=== PATIENT | female | born 1950 | race Caucasian/White ===

== ENCOUNTER 2016-11-02 19:18 | Inpatient (IN) ==
[2016-11-02] MEDS ORDERED: Acetaminophen 325 MG TABLET PO PRN (23:19)
[2016-11-02] MEDS ORDERED: MOM Conc 10 ML UD.LIQ PO PRN (23:19)
[2016-11-02] MEDS ORDERED: Naloxone 0.4 MG/ML INJ IVP PRN (23:19)
[2016-11-03] MEDS ORDERED: *HR* Heparin 5,000 UNIT/ML VIAL SQ SCH
[2016-11-03] MEDS ORDERED: D5% in Water 1,000 ML IVC PRN (00:03)
[2016-11-03] MEDS ORDERED: Dextrose Gel 15 GM PO PRN ×2 (00:03)
[2016-11-03] MEDS ORDERED: *HR* Dextrose 50 % in Water (Syg) 50 ML SYRINGE IVP PRN (00:03)
[2016-11-03] MEDS ORDERED: Insulin LISPRO 300 UNITS/3 ML VIAL SQ ONE (00:08)
[2016-11-03] MEDS: Insulin LISPRO 300 UNITS/3 ML VIAL SQ SCH ×5 (00:40→22:07)
[2016-11-03 01:11] LABS: Potassium 2.7 mEq/L (3.5-4.5)
[2016-11-03] MEDS ORDERED: Potassium Chloride 20 MEQ, Lidocaine 1% 2 ML in D5% in Water 250 ML IVPB ONE (01:20)
[2016-11-03 01:40] LABS: Basophils % 0.2 %; Eosinophils # 0.1 K/mcL (0.0-0.6); Eosinophils % 1.3 %; Hemoglobin 6.6 g/dL (11.5-15.4); Immature Granulocytes % 1.1 % (0-4); Lymphocytes # 0.5 K/mcL (0.6-4.6); Lymphocytes % 8.1 %; Mean Corpuscular HGB Conc 31.4 g/dL (31.6-35.5); Mean Corpuscular Hemoglobin 26.7 pg (28.0-33.3); Monocytes # 0.4 K/mcL (0.0-1.3); Monocytes % 6.4 %; Neutrophils # 5.2 K/mcL (1.6-8.9); Platelet Count 213 K/mcL (140-400); Red Blood Count 2.47 M/mcL (3.82-4.97); Red Cell Distribution Width 14.2 % (11.5-14.5); Segmented Neutrophils % 82.9 %
[2016-11-03] MEDS ORDERED: Magnesium Sulfate 2 GM in D5% in Water 100 ML IVPB ONE (01:41)
[2016-11-03 01:48] LABS: Phosphorous 2.4 mg/dL (2.3-4.7)
--- NOTE | 2016-11-03 02:34 | Internal Med History&Physical ---
Date of Encounter: 11/03/16 Time of Encounter: 02:34 Assessment and Plan (1) NSTEMI (non-ST elevated myocardial infarction) Current visit: Yes Status: Acute No chest pain, but dyspnea and hypoxia due to pulmonary edema on room air on arrival could be angina equivalent in this diabetic woman with diabetic nephropathy. Troponin increased from 1.3 to 2.2 in 6 hours. Her EKG showed anterolateral TWI with mild anterior ST depression. I cannot rule out U waves due to hypokalemia, no prior EKG was available despite attempt. QTc is 579. - aspirin - statin - cont home coreg - start heparin gtt - check TTE - NPO inc ase she needs a cardiac cath during the day - cardiology consult, d/w Dr. Puckett (2) Pulmonary edema Current visit: Yes Status: Acute GGO seen on CT are likely pulmonary edema based one exam, in the setting of NSTEMI. It is also possible that pulmonary edema is causing demand ischemia and NSTEMI-type II. - She just received IV contrast, and still produces some urine. Will attempt to preserve residual renal function by avoiding IV Lasix at this time - WIll consult nephrology for HD for volume overload - Will give IV Lasix only if acute hypoxia or tachypnea overnight - cont O2 2 l/nc for now Qualifiers: Chronicity: chronic Qualified Code(s): J81.1 - Chronic pulmonary edema (3) ESRD (end stage renal disease) on dialysis Current visit: Yes Status: Acute -recently started, HD-LUE-AVF - nephrology consult (4) Heart failure Current visit: Yes Status: Acute check TTE, assess EF - volume overload to be managed by HD - would likely benefit from TAMAR inhibitor once stabilized Qualifiers: Heart failure type: unspecified heart failure type Heart failure chronicity : chronic Qualified Code(s): I50.9 - Heart failure, unspecified (5) Diabetes mellitus Current visit: Yes Status: Acute - SSI Qualifiers: Diabetes mellitus type: type 2 Diabetes mellitus complication status: with kidney complications Diabetes mellitus complication detail: with chronic kidney disease Diabetes mellitus mcfp insulin use: without mcfp use Chronic kidney disease stage: on chronic dialysis Qualified Code(s): E11.22 - Type 2 diabetes mellitus with diabetic chronic kidney disease; N18.6 - End stage renal disease; Z99.2 - Dependence on renal dialysis (6) Dyspnea Current visit: Yes Status: Acute Dyspnea is likely due to pulmonary edema. Despite productive cough and mild hemoptysis, I doubt pneumonia considering her exam, lack of fever and lack of leukocytosis. s/p 1 dose of Levaquin at OSH on 11/03 - Hold further antibiotics - If she develops fever or clinical signs of pneumonia, use a non-QTc prolonging antibiotic Qualifiers: Dyspnea type: shortness of breath Qualified Code(s): R06.02 - Shortness of breath; R06.00 - Dyspnea, unspecified; R06.01 - Orthopnea (7) Hypokalemia Current visit: Yes Status: Acute - severe, with possible U waves on EKG, and prolonged QTc. K 2.7 - give IV 20 mEq and PO 40 mEq, then recheck (8) Hypomagnesemia Current visit: Yes Status: Acute replace 2 g IV (9) Anemia in chronic kidney disease Current visit: Yes Status: Acute stable - monitor for bleeding while on heparin gtt (pt counseled, risks vs benefits explained) Qualifiers: Chronic kidney disease stage: on chronic dialysis Qualified Code(s): N18.6 - End stage renal disease; D63.1 - Anemia in chronic kidney disease; Z99.2 - Dependence on renal dialysis Internal Medicine - H&P: HPI Chief complaint: dyspnea Admitted From: Direct Admit Plans for Post Hospital Care: Home History of present illness: 65W with HF with unknown EF, [id number] for one month, HL and DM2 was recently treated for PNA and completed the antibiotic course around 10/16/16. Around , she started developing progressive dyspnea, cough with green sputum and occasional hemoptysis associated with dizziness, diaphoresis and fatigue. She presented to OSH due to dyspnea, was found to have hypoxia 76%, potassium 2.4 and troponin 1.3. A CTA was done which was negative for CAD but showed bilateral GGO of unknown etiology. She received KCl 20 mEq and IV Levaquin, and was transferred to [facility]. No chest pain, palpitations. Constipation. A 10-point ROS is otherwise negative. PMH: as above PSH: cholecystecotmy, partial hysterectomy SH: No tobacco use FH: DM, CAD. Brother-colon cancer. brother-prostate cancer. Past Med Surg Social Fam HX - Past Medical History Medical history: CHF, coronary artery disease, diabetes, hyperlipidemia, hypertension, renal disease, valvular heart disease, other Psychiatric history: no psych history - Past Surgical History Surgical History: cholecystectomy, hysterectomy - Social History Smoking Status: Never smoker Smokeless Tobacco Status: No Alcohol use: none Drug use: none Internal Medicine - H&P: Meds Aspirin [Lo-Dose Aspirin EC] 81 mg PO DAILY 11/02/16 [History] Carvedilol [Coreg] 12.5 mg BID 11/02/16 [History] Cholecalciferol (D-3) [Vitamin D] 2,000 unit PO DAILY 11/02/16 [History] Hydralazine HCl 100 mg PO TID 11/02/16 [History] Insulin Glargine [Lantus] HS 11/02/16 [History] Insulin LISPRO [HumaLOG] SQ ACHS 11/02/16 [History] Isosorbide MONOnitrate (24 HR) [Imdur] 30 mg PO DAILY 11/02/16 [History] amLODIPine [Norvasc] 11/02/16 [History] 3 Allergy/AdvReac Type Severity Reaction Status Date / Time Erythromycin Base Allergy Intermediate Itching Verified 06/02/15 14:32 faloxitine Allergy Hives Uncoded 08/27/16 08:47 All Systems PM: A 10-system review of systems was performed and is negative for pertinent findings except as documented above in the HPI. - Constitutional Vitals: Temp Pulse Resp BP Pulse Ox 98.3 F 83 16 158/71 95 11/03/16 00:15 11/03/16 00:15 11/02/16 22:30 11/03/16 00:15 11/03/16 00:15 General appearance: Present: A&O X 3, pleasant, no acute distress - Head Head exam: Present: atraumatic, normocephalic - Eye Eye exam: Present: PERRL, conjuntiva pink, sclera anicteric Pupils: Present: PERRL - Neck Neck exam general surgery: Present: supple, trachea midline. Absent: nuchal rigidity - Respiratory Respiratory exam: Present: rales (bibasilar). Absent: accessory muscle use, rhonchi, wheezes - Cardiovascular Cardiovascular exam: Present: JVD, RRR, +S1, +S2. Absent: diastolic murmur, gallop, rubs, systolic murmur - GI/Abdominal GI/Abdominal exam: Present: normal bowel sounds, soft, no peritoneal signs. Absent: distended, guarding, rebound, tenderness - Extremities Exam Extremities exam: Present: pedal edema (trace), warm, radial pulses palpable and symmetrical. Absent: calf tenderness, cyanotic - Neurological Exam Neurological exam: Present: CN II-XII intact, oriented X3, no focal deficits. Absent: facial droop, speech deficit - Psychiatric Psychiatric exam: Present: normal affect, normal mood - Skin Skin exam: Present: dry, intact Internal Med - H&P Results - Labs CBC & Chem 7: 11/03/16 00:47 11/03/16 00:47 Labs: Short CBC 11/03/16 Range/Units 00:47 WBC 6.2 (4.3-11.1) K/mcL Hgb 6.6 L (11.5-15.4) g/dL Hct 21.0 L (35.3-44.9) % Plt Count 213 (140-400) K/mcL Neutrophils # 5.2 (1.6-8.9) K/mcL BMP 11/03/16 00:47 Sodium 138 Potassium 2.7 L Chloride 98 Carbon Dioxide 31 H BUN 15 Creatinine 2.43 H Glucose 283 H Calcium 8.0 L Cardiac Enzymes 11/03/16 Range/Units 00:47 Troponin I 2.20 H* (0-0.03) ng/mL - EKG Data -: EKG Interpreted by Myself (Sinus 82 bpm, anterolateral TWI with mild anterior ST depression) EKG shows normal: sinus rhythm (cannot r/o U waves. QTc 579) - EKG Data Prior EKG available for review: no (attempted but couldn't get it from OSH)
[2016-11-03] MEDS ORDERED: *HR* Heparin 5,000 UNIT/ML VIAL IVP ONE (02:38)
[2016-11-03] MEDS ORDERED: Aspirin 325 MG TABLET PO ONE (02:38)
[2016-11-03] MEDS ORDERED: *HR* Heparin 5,000 UNIT/ML VIAL IVP PRN ×2 (02:38)
[2016-11-03 03:47] LABS: Hematocrit 20.7 % (35.3-44.9); Hemoglobin 6.5 g/dL (11.5-15.4); Mean Corpuscular HGB Conc 31.4 g/dL (31.6-35.5); Mean Corpuscular Hemoglobin 26.9 pg (28.0-33.3); Mean Corpuscular Volume 85.5 fL (83.0-100.0); Mean Platelet Volume 9.7 fL (9.4-12.4); Platelet Count 230 K/mcL (140-400); Red Blood Count 2.42 M/mcL (3.82-4.97); Red Cell Distribution Width 14.4 % (11.5-14.5)
[2016-11-03 03:53] LABS: INR 1.2; Prothrombin Time 12.8 Seconds (9.4-12.1)
[2016-11-03] MEDS: Heparin 25,000 UNIT/500 ML D5W 25,000 UNIT/500 ML MLS IVC SCH (04:57)
--- NOTE | 2016-11-03 05:40 | Event Note ---
Date of Encounter: 11/03/16 Time of Encounter: 05:34 Noted Hb 6.5, baseline 7-8. No obvious bleeding. - Considering NSTEMI, we may consider to transfuse her to a goal of 8.0. She has pulmonary edema, and PRBC transfusion may cause recurrence of hypoxia. - Type and cross-match - Check H&H at 10:00, if Hb is still low, transfuse 1 unit PRBC (during HD if possible for volume removal, would defer to nephrology)
[2016-11-03] MEDS: hydrALAZINE 25 MG TABLET PO SCH ×3 (08:50→22:02)
[2016-11-03] MEDS: Isosorbide MONOnitrate (24 HR) 30 MG TAB.ER.24H PO SCH (08:50)
[2016-11-03] MEDS ORDERED: Ondansetron 4 MG/2 ML VIAL IVP PRN (09:54)
--- NOTE | 2016-11-03 10:09 | Cardiology Consult Note ---
Date of Encounter: 11/03/16 Time of Encounter: 10:06 Assessment and Plan (1) NSTEMI (non-ST elevated myocardial infarction) Current Visit: Yes Status: [facility] 2.03--downtrending. Also in setting of ESRD on dialysis, severe electrolyte imbalances and acute on chronic anemia with HGB 6.5. Demand ischemia vs. NSTEMI. Pt denies chest pain. Reports dyspnea, has improved since admission. Given HGB of 6.5, would recommend medical management. Discussed with pt, states she would refuse a [facility] because she simply "does not want to know". R/B/A to options discussed. She wants medical management. Continue heparin gtt x 24 hours. Denies active bleeding, although reports hemoptysis prior to admission. Continue ASA, Statin, BB. Check echo to evaluate structure and function. (2) Cardiac murmur Current Visit: Yes Status: Acute Murmur noted on exam. Check echo to further evaluate. (3) Anemia in chronic kidney disease Current Visit: Yes Status: Acute Baseline HGB upper 7-10 range. Currently 6.5. Reports hemoptysis prior to admission. Management per primary team. Qualifiers: Chronic kidney disease stage: on chronic dialysis Qualified Code(s): N18.6 - End stage renal disease; D63.1 - Anemia in chronic kidney disease; Z99.2 - Dependence on renal dialysis Discussion w patient/family: The assessment and plan as outlined above was discussed with the patient and/or family members who expressed understanding and agreement. All questions were answered. Thank you for involving us in the care of your patient. Please call with any questions. I will discuss all the above with Dr. Adame and make changes as necessary. History of Present Illness Consult date: 11/03/16 Requesting physician: Maikel Joseph Consult reason: Elevated troponin Chief complaint: Dyspnea History of present illness: Ms. Giraldo is a 65 year old female with PMH of ESRD on HD for one month, HL and DM2 was recently treated for PNA and completed the antibiotic course around 10/16. She reports 4 days ago she started developing progressive dyspnea, cough with green sputum and occasional hemoptysis associated with dizziness, diaphoresis and fatigue. She presented to outside facility, reportedly per hospitalist H&P found to have hypoxia 76%, potassium 2.4 and troponin 1.3. She was transferred to [facility]. She denies chest pain. Troponin trended--2.20, 2.03. K is 2.7. HGB is 6.5. She denies CAD hx. Reports being told she has a murmur. Past Med Surg Social Fam HX - Past Medical History Medical history: CHF, diabetes, hyperlipidemia, hypertension, renal disease, valvular heart disease, other Psychiatric history: no psych history - Past Surgical History Surgical History: cholecystectomy, hysterectomy - Social History Smoking Status: Never smoker Smokeless Tobacco Status: No Alcohol use: none Drug use: none Medications and Allergies Aspirin [Lo-Dose Aspirin EC] 81 mg PO DAILY 11/02/16 [History] Carvedilol [Coreg] 12.5 mg BID 11/02/16 [History] Cholecalciferol (D-3) [Vitamin D] 2,000 unit PO DAILY 11/02/16 [History] Insulin Glargine [Lantus] 15 - 40 unit SQ QPM 11/02/16 [History] Insulin LISPRO [HumaLOG] 1 - 8 unit SQ TID PRN 11/02/16 [History] Isosorbide MONOnitrate (24 HR) [Imdur] 30 mg PO DAILY 11/02/16 [History] amLODIPine [Norvasc] 10 mg PO DAILY 11/02/16 [History] Clopidogrel [Plavix] 75 mg PO DAILY 11/03/16 [History] Hydralazine HCl [Hydralazine HCl] 50 mg PO TID 11/03/16 [History] Lidocaine/Prilocaine CREAM [Emla] 1 appl TP AD PRN 11/03/16 [History] 3 Allergy/AdvReac Type Severity Reaction Status Date / Time Erythromycin Base Allergy Intermediate Itching Verified 06/02/15 14:32 faloxitine Allergy Hives Uncoded 08/27/16 08:47 All Systems Review: A 10-system review of systems was performed and is negative for pertinent findings except as documented above in the HPI. - Constitutional Constitutional: fatigue - Cardiovascular Cardiovascular: as per HPI, diaphoresis, dyspnea at rest, dyspnea on exertion, lightheadedness - Respiratory Respiratory: cough, dyspnea, hemoptysis Physical Examination Vital Signs, Last 4 Hours Temp Pulse Resp BP Pulse Ox 11/03/16 08:20 99.1 F 76 18 142/67 95 11/03/16 07:33 99.1 F 76 18 142/67 95 Vital Signs Temp Pulse Resp BP Pulse Ox 11/03/16 08:20 99.1 F 76 18 142/67 95 11/03/16 07:33 99.1 F 76 18 142/67 95 11/03/16 04:13 98.5 F 86 16 180/87 99 11/03/16 03:40 86 11/03/16 00:15 98.3 F 83 158/71 95 11/02/16 22:30 98.2 F 89 16 164/76 92 Intake and Output 11/02/16 11/03/16 11/03/16 23:59 07:59 15:59 Intake Total 366 / 366 Output Total 100 / 100 Balance 266 / 266 Intake: IV Fluids 366 / 366 Magnesium Sulfate 2 GM In 104 / 104 Dextrose 5% 100 ML @ 100 mls/hr IVPB ONCE ONE Rx# :[id number] KCl 20 MEQ Xylocaine 2 ML 262 / 262 In Dextrose 5% 250 ML @ 131 mls/hr IVPB ONCE ONE Rx#:[id number] Output: Urine 100 / 100 Other: Weight 73.5 kg 73.5 kg Blood Glucose* 324 278 278 Patient Weight 11/03/16 23:59 Weight 73.5 kg General: Conversant, No Apparent Distress HEENT: Atraumatic, Normocephaly, Mucus Membranes Moist Neck: No JVD, Normal carotid pulses Cardiac: Reg Rate and Rhythm, Normal S1 and S2, Other (2/6 DEANNE) Lungs: Other (diminished) Neuro: Alert and responsive, No focal deficits noted Abdomen: Soft, Non-Tender Skin: No rashes noted on visualized skin Musculoskeletal: No Chest Wall Tenderness Extremities: No Clubbing, No Cyanosis, No Edema, Normal Pulses Results 11/03/16 03:39 11/03/16 00:47 Lab Results 11/03/16 11/03/16 11/03/16 00:47 00:47 00:47 WBC 6.2 Hgb 6.6 L Hct 21.0 L Plt Count 213 INR APTT Sodium Potassium Chloride Carbon Dioxide BUN Creatinine Glucose Calcium Magnesium 1.5 L Troponin I 2.20 H* 11/03/16 11/03/16 11/03/16 00:47 03:39 03:39 WBC 7.4 Hgb 6.5 L Hct 20.7 L Plt Count 230 INR APTT 35.3 Sodium 138 Potassium 2.7 L Chloride 98 Carbon Dioxide 31 H BUN 15 Creatinine 2.43 H Glucose 283 H Calcium 8.0 L Magnesium Troponin I 11/03/16 11/03/16 03:39 06:05 WBC Hgb Hct Plt Count INR 1.2 APTT Sodium Potassium Chloride Carbon Dioxide BUN Creatinine Glucose Calcium Magnesium Troponin I 2.03 H* Short CBC 11/03/16 11/03/16 Range/Units 03:39 00:47 WBC 7.4 6.2 (4.3-11.1) K/mcL Hgb 6.5 L 6.6 L (11.5-15.4) g/dL Hct 20.7 L 21.0 L (35.3-44.9) % Plt Count 230 213 (140-400) K/mcL Neutrophils # 5.2 (1.6-8.9) K/mcL BMP 11/03/16 Range/Units 00:47 Sodium 138 (136-145) mEq/L Potassium 2.7 L (3.5-4.5) mEq/L Chloride 98 (98-109) mEq/L Carbon Dioxide 31 H (19-29) mEq/L BUN 15 (7-20) mg/dL Creatinine 2.43 H (0.57-1.11) mg/dL Glucose 283 H (70-99) mg/dL Calcium 8.0 L (8.6-10.8) mg/dL Cardiac Enzymes 11/03/16 11/03/16 Range/Units 06:05 00:47 Troponin I 2.03 H* 2.20 H* (0-0.03) ng/mL Active Medications Acetaminophen (Tylenol) 650 mg PO Q6HR PRN PRN Reason: Mild Pain (1-3) Stop: 05/04/17 23:20 Aspirin (Aspirin Ec) 81 mg PO DAILY [facility] Stop: 05/06/17 09:01 Atorvastatin Calcium (Lipitor) 80 mg PO HS [facility] Stop: 05/05/17 02:46 Last Admin: 11/03/16 03:59 Dose: 80 mg Carvedilol (Coreg) 12.5 mg PO BID [facility] PRN Reason: Protocol Stop: 05/05/17 02:37 Last Admin: 11/03/16 08:50 Dose: 12.5 mg Dextrose/Water (Dextrose 50% (Syg)) 25 ml IVP AD PRN PRN Reason: Hypoglycemia Stop: 05/05/17 00:04 Docusate Sodium (Colace) 100 mg PO BID PRN PRN Reason: Constipation Stop: 05/04/17 23:20 Glucagon (Glucagen) 1 mg IM ONCE PRN PRN Reason: Hypoglycemia Stop: 05/05/17 00:04 Glucose (Gluctose) 15 gm PO ONCE PRN PRN Reason: Hypoglycemia Stop: 05/05/17 00:04 Glucose (Gluctose) 30 gm PO ONCE PRN PRN Reason: Hypoglycemia Stop: 05/05/17 00:04 Heparin Sodium (Porcine) (Heparin) 4,000 unit IVP Q6HR PRN PRN Reason: SEE COMMENTS Stop: 05/05/17 02:39 Heparin Sodium (Porcine) (Heparin) 2,000 unit IVP Q6H PRN PRN Reason: SEE COMMENTS Stop: 05/05/17 02:39 Hydralazine HCl (Hydralazine) 100 mg PO TID [facility] Stop: 05/05/17 09:01 Last Admin: 11/03/16 08:50 Dose: 100 mg Dextrose (Dextrose 5%) 1,000 mls @ 100 mls/hr IVC .Q10H PRN PRN Reason: HYPOGLYCEMIA Stop: 05/05/17 00:04 Heparin Sodium/Dextrose (Heparin 25,000 Unit/500 Ml D5w) 25,000 unit in 500 mls @ 17.64 mls/hr IVC .Q24H GO; 12 UNIT/KG/HR PRN Reason: Protocol Stop: 05/05/17 02:46 Last Admin: 11/03/16 04:57 Dose: 12 unit/kg/hr, 17.64 mls/hr Insulin Human Lispro (Humalog) 0 units SQ HS [facility] PRN Reason: Protocol Stop: 05/05/17 00:16 Last Admin: 11/03/16 00:40 Dose: Not Given Insulin Human Lispro (Humalog) 0 units SQ TIDAC [facility] PRN Reason: Protocol Stop: 05/05/17 07:31 Last Admin: 11/03/16 08:52 Dose: 10 units Isosorbide Mononitrate (Imdur) 30 mg PO DAILY [facility] Stop: 05/05/17 09:01 Last Admin: 11/03/16 08:50 Dose: 30 mg Magnesium Hydroxide (Milk Of Magnesia Conc) 10 ml PO DAILY PRN PRN Reason: Indigestion Stop: 05/04/17 23:20 Naloxone HCl (Narcan) 0.4 mg IVP Q2MIN PRN PRN Reason: Opioid Reversal Stop: 05/04/17 23:20 Ondansetron HCl (Zofran) 4 mg IVP Q4HR PRN; Protocol PRN Reason: Nausea And Vomiting Stop: 05/05/17 12:01 - EKG Interpretation EKG results cardiology: personally reviewed (SR, LVH), other (24 hr tele AVG HR 69, SR, no significant pauses or arrhythmias, ectopy noted.) Consult Discharge Plan - Plan Referrals: Huey Ortega MD [Non-Partnered Physician] - 11/15/16 8:40 am NONE,PCP [Primary Care Provider] -
[2016-11-03] MEDS ORDERED: Potassium Chloride 40 MEQ, Lidocaine 1% 2 ML in D5% in Water 500 ML IVPB ONE (10:23)
[2016-11-03] MEDS ORDERED: Furosemide 40 MG/4 ML VIAL IVP ONE (10:35)
--- NOTE | 2016-11-03 11:18 | Nephrology Consult Note ---
Date of Encounter: 11/03/16 Time of Encounter: 11:13 Assessment and Plan (1) Anemia in chronic kidney disease Current Visit: Yes Status: Acute Monitor for bleeding. Check iron stores, vit b12 and folate. Will start aranesp. Qualifiers: Chronic kidney disease stage: on chronic dialysis Qualified Code(s): N18.6 - End stage renal disease; D63.1 - Anemia in chronic kidney disease; Z99.2 - Dependence on renal dialysis (2) Diabetes mellitus Current Visit: Yes Status: Acute Per primary team. Qualifiers: Diabetes mellitus type: type 2 Diabetes mellitus complication status: with kidney complications Diabetes mellitus complication detail: with chronic kidney disease Diabetes mellitus facility manager insulin use: without alf use Chronic kidney disease stage: on chronic dialysis Qualified Code(s): E11.22 - Type 2 diabetes mellitus with diabetic chronic kidney disease; N18.6 - End stage renal disease; Z99.2 - Dependence on renal dialysis (3) ESRD (end stage renal disease) on dialysis Current Visit: Yes Status: Acute HD MWF. Plan for UF today for volume control. Renal diet. Adjust medications for renal function. HD access - patient may benefit from fistulogram given diminished thrill and bruit along the course of the fistula. (4) Hypokalemia Current Visit: Yes Status: Acute Replace electrolytes as needed. (5) NSTEMI (non-ST elevated myocardial infarction) Current Visit: Yes Status: Acute Per cardiology. Patient is refusing cardiac cath. May benefit from palliative evaluation for goals of care. No active chest pain. (6) Pulmonary edema Current Visit: Yes Status: Acute Likely CHF. Await echo. Plan for UF session today. Qualifiers: Chronicity: chronic Qualified Code(s): J81.1 - Chronic pulmonary edema (7) Hypertension Current Visit: Yes Status: Acute Continue home medication. Patient will likely need beta jannette and TAMAR-I/ARB. Qualifiers: Qualified Code(s): I10 - Essential (primary) hypertension History of Present Illness - Reason for Consult Consult date: 11/03/16 end stage renal disease - Chief Complaint ESRD dyspnea - History of Present Illness Ms. Giraldo is a 65-year-old woman with a history of diabetes mellitus type 2, hypertension, and ESRD who presents with progressive dyspnea and was found to have a NSTEMI. She receives dialysis on a MWF via a left forearm fistula under the direction of Dr. Sutherland of [facility]). She was found to have pulmonary edema and feels slightly better this am with less dyspnea and no chest pain. She did have nausea with vomiting this am that has improved by the time of my evaluation. She has had dyspnea on exertion that has worsened recently. She has had no problems on dialysis. Past Med Surg Social Fam HX - Past Medical History Medical history: CHF, diabetes, hyperlipidemia, hypertension, renal disease, valvular heart disease, other Psychiatric history: no psych history - Past Surgical History Surgical History: cholecystectomy, hysterectomy - Social History Smoking Status: Never smoker Smokeless Tobacco Status: No Alcohol use: none Drug use: none Medications and Allergies Aspirin [Lo-Dose Aspirin EC] 81 mg PO DAILY 11/02/16 [History] Carvedilol [Coreg] 12.5 mg BID 11/02/16 [History] Cholecalciferol (D-3) [Vitamin D] 2,000 unit PO DAILY 11/02/16 [History] Insulin Glargine [Lantus] 15 - 40 unit SQ QPM 11/02/16 [History] Insulin LISPRO [HumaLOG] 1 - 8 unit SQ TID PRN 11/02/16 [History] Isosorbide MONOnitrate (24 HR) [Imdur] 30 mg PO DAILY 11/02/16 [History] amLODIPine [Norvasc] 10 mg PO DAILY 11/02/16 [History] Clopidogrel [Plavix] 75 mg PO DAILY 11/03/16 [History] Hydralazine HCl [Hydralazine HCl] 50 mg PO TID 11/03/16 [History] Lidocaine/Prilocaine CREAM [Emla] 1 appl TP AD PRN 11/03/16 [History] 3 Allergy/AdvReac Type Severity Reaction Status Date / Time Erythromycin Base Allergy Intermediate Itching Verified 06/02/15 14:32 faloxitine Allergy Hives Uncoded 08/27/16 08:47 Review of Systems All Systems: reviewed and no additional remarkable complaints except as stated ( as documented on HPI.) Exam - Vital Signs Vital signs: Initial Vital Signs Temp Pulse Resp BP Pulse Ox 98.2 F 89 16 164/76 92 11/02/16 22:30 11/02/16 22:30 11/02/16 22:30 11/02/16 22:30 11/02/16 22:30 Vital Signs - Last 8 Hours Temp Pulse Resp BP Pulse Ox 11/03/16 10:57 98.6 F 71 17 102/54 11/03/16 08:20 99.1 F 76 18 142/67 95 11/03/16 07:33 99.1 F 76 18 142/67 95 11/03/16 04:13 98.5 F 86 16 180/87 99 11/03/16 03:40 86 Intake and Output 11/02/16 11/03/16 11/03/16 23:59 07:59 15:59 Intake Total 366 / 366 Output Total 100 / 100 Balance 266 / 266 Intake: IV Fluids 366 / 366 Magnesium Sulfate 2 GM In 104 / 104 Dextrose 5% 100 ML @ 100 mls/hr IVPB ONCE ONE Rx# :[id number] KCl 20 MEQ Xylocaine 2 ML 262 / 262 In Dextrose 5% 250 ML @ 131 mls/hr IVPB ONCE ONE Rx#:[id number] Output: Urine 100 / 100 Other: Weight 73.5 kg 73.5 kg Blood Glucose* 324 278 198 Patient Weight 11/03/16 23:59 Weight 73.5 kg - General Appearance General appearance: well-developed, well-nourished, frail EENT: ATNC Neck: supple Respiratory: rales (bibasilar rales) Cardiology: edema, regular rate, regular rhythm - Dialysis Access Dialysis Vascular Access: Arteriovenous Fistula thrill: Yes bruit: Yes Gastrointestinal: no tenderness Integumentary: warm and dry Neurologic: alert and oriented x3 Musculoskeletal: no cyanosis Psychiatric: mood/affect appropriate Results - Lab Results 11/03/16 03:39 11/03/16 00:47 Most recent lab results Calcium 8.0 mg/dL (8.6-10.8) L 11/03/16 00:47 Phosphorus 2.4 mg/dL (2.3-4.7) 11/03/16 00:47 Magnesium 1.5 mg/dL (1.6-2.6) L 11/03/16 00:47 Consult Discharge Plan - Plan Referrals: Huey Ortega MD [Non-Partnered Physician] - 11/15/16 8:40 am NONE,PCP [Primary Care Provider] -
[2016-11-03 12:33] LABS: Hematocrit 20.5 % (35.3-44.9); Hemoglobin 6.4 g/dL (11.5-15.4); Mean Corpuscular HGB Conc 31.2 g/dL (31.6-35.5); Mean Corpuscular Volume 86.5 fL (83.0-100.0); Mean Platelet Volume 9.8 fL (9.4-12.4); Platelet Count 231 K/mcL (140-400); Red Blood Count 2.37 M/mcL (3.82-4.97); Red Cell Distribution Width 14.7 % (11.5-14.5)
[2016-11-03 12:46] LABS: Calcium 8.7 mg/dL (8.6-10.8); Magnesium 2.2 mg/dL (1.6-2.6); Potassium 3.7 mEq/L (3.5-4.5)
[2016-11-03] MEDS ORDERED: 0.9 % Sodium Chloride 250 ML IVC PRN (13:35)
--- NOTE | 2016-11-03 14:35 | Event Note ---
Date of Encounter: 11/03/16 Time of Encounter: 14:34 - Cardiology Event Note Echo resulted. Impressions: LVEF 60-65%. Normal left ventricular size and systolic function. There is evidence of moderate diastolic dysfunction of the left ventricle. Normal right ventricular size and function. Mild mitral regurgitation. No pulmonary hypertension. EF is preserved, no severe valve dysfunction. Cardiology will sign off. Reconsult PRN. Recommend stopping Heparin gtt after 24 hours in setting of acute on chronic anemai. Continue ASA, Statin, BB.
[2016-11-03 15:06] LABS: Hepatitis B Surface Antigen Nonreactive (Nonreactive)
[2016-11-03] MEDS ORDERED: 0.9 % Sodium Chloride 2,000 ML ONE (16:16)
--- NOTE | 2016-11-03 16:49 | Electrocardiograph Report ---
[place] [id number] Test Date: 2016-11-02 Pat Name: Crystal Giraldo Department: 110 Room: [facility] Gender: F Quail Farmer: [id number] : 1950 Requested By: Maikel Joseph Order Number: [id number] Reading MD: Ayesha Mendenhall Measurements Intervals [place] Rate: 82 P: 53 DC: 154 QRS: 22 QRSD: 88 T: -70 QT: 541 QTc: 579 Interpretive Statements SINUS RHYTHM LEFT VENTRICULAR HYPERTROPHY AND ST-T CHANGE Electronically Signed On 11-03-2016 16:47:34 EDT by Ayesha Mendehnall
[2016-11-03 21:23] LABS: Hematocrit 28.1 % (35.3-44.9)
[2016-11-03 21:41] LABS: Hemoglobin 9.1 g/dL (11.5-15.4)
[2016-11-03] MEDS: Insulin DETEMIR 100 UNIT/ML X5UNITS SQ SCH (22:06)
[2016-11-04 04:29] LABS: Hematocrit 27.3 % (35.3-44.9); Hemoglobin 8.6 g/dL (11.5-15.4); Mean Corpuscular HGB Conc 31.5 g/dL (31.6-35.5); Mean Corpuscular Hemoglobin 27.8 pg (28.0-33.3); Mean Corpuscular Volume 88.3 fL (83.0-100.0); Mean Platelet Volume 10.1 fL (9.4-12.4); Platelet Count 203 K/mcL (140-400); Red Blood Count 3.09 M/mcL (3.82-4.97); Red Cell Distribution Width 15.3 % (11.5-14.5)
[2016-11-04 04:43] LABS: Calcium 8.6 mg/dL (8.6-10.8); Potassium 3.9 mEq/L (3.5-4.5)
[2016-11-04 06:10] LABS: Folate 6.3 ng/mL (7.0-31.4)
[2016-11-04] MEDS ORDERED: 0.9 % Sodium Chloride 250 ML IVC PRN (07:23)
[2016-11-04] MEDS: Heparin 25,000 UNIT/500 ML D5W 25,000 UNIT/500 ML MLS IVC SCH (07:30)
[2016-11-04] MEDS: Isosorbide MONOnitrate (24 HR) 30 MG TAB.ER.24H PO SCH (07:49)
[2016-11-04] MEDS: Aspirin Enteric Coated 81 MG Tablet PO SCH (07:49)
[2016-11-04] MEDS: hydrALAZINE 25 MG TABLET PO SCH ×3 (07:50→20:26)
[2016-11-04] MEDS: Insulin LISPRO 300 UNITS/3 ML VIAL SQ SCH ×4 (07:51→20:27)
[2016-11-04] MEDS ORDERED: 0.9 % Sodium Chloride 1,000 ML ONE (08:34)
[2016-11-04 09:45] LABS: Hepatitis B Surface Antibody 0.85 mIU/mL
--- NOTE | 2016-11-04 10:29 | Nephrology Progress Note ---
Date of Encounter: 11/04/16 Time of Encounter: 10:27 - Assessment and Plan (1) ESRD (end stage renal disease) on dialysis Current Visit: Yes Status: Chronic HD today for clearance, but no UF as she has a hx of high output ileostomy so she has no edema on exam. Next HD is planned for Monday. (2) Anemia in chronic kidney disease Current Visit: Yes Status: Chronic Goal Hgb is 10-11 in the setting of CKD. Qualifiers: Chronic kidney disease stage: on chronic dialysis Qualified Code(s): N18.6 - End stage renal disease; D63.1 - Anemia in chronic kidney disease; Z99.2 - Dependence on renal dialysis (3) Hematuria Current Visit: Yes Status: Acute Via the Urostomy: As per primary and Urology; appreciate their assistance. Qualifiers: Qualified Code(s): R31.29 - Other microscopic hematuria; R31.2 - Other microscopic hematuria (4) Dyspnea Current Visit: Yes Status: Acute With productive cough. Appreciate the hospitalists. Qualifiers: Dyspnea type: shortness of breath Qualified Code(s): R06.02 - Shortness of breath; R06.00 - Dyspnea, unspecified; R06.01 - Orthopnea Subjective Principal diagnosis: ESRD, PNA Interval history: Pt was s/e while on HD. She did not affirm N/V/D but did report gross hematuria via the urostomy and ongoing productive cough with rib pains from frequent coughing. Objective - Vital Signs Vital signs: Vital Signs Temp Pulse Resp BP Pulse Ox 11/04/16 08:15 98.3 F 73 18 136/71 95 11/04/16 07:25 98.3 F 73 18 136/71 95 11/04/16 03:44 98.4 F 70 18 120/60 94 11/03/16 23:40 98.8 F 74 18 115/56 95 11/03/16 20:34 99.7 F H 78 18 128/64 96 11/03/16 19:00 98.2 F 18 138/66 11/03/16 18:30 144/73 11/03/16 18:15 146/76 11/03/16 18:00 157/73 11/03/16 17:45 152/70 11/03/16 17:35 99 F 73 16 151/72 11/03/16 17:30 147/76 08/31/17 17:20 99 F 75 16 153/77 11/03/16 17:15 158/75 11/03/16 17:00 100 F H 74 16 141/69 11/03/16 16:45 100 F H 73 16 138/69 11/03/16 16:30 134/69 11/03/16 16:15 131/59 11/03/16 16:10 99.9 F H 79 16 135/71 11/03/16 16:00 132/67 11/03/16 15:55 100 F H 73 16 138/56 95 11/03/16 15:45 113/53 11/03/16 15:30 99.8 F H 18 118/59 11/03/16 11:20 98.6 F 71 17 102/54 95 11/03/16 10:57 98.6 F 71 17 102/54 Intake and Output 11/03/16 11/04/16 11/04/16 23:59 07:59 15:59 Intake Total 1261 / 1261 311 / 311 527 / 527 Output Total 3330 / 3330 0 / 0 300 / 300 Balance -2068 / -2068 311 / 311 227 / 227 Intake: IV Fluids 151 / 151 311 / 311 47 / 47 Heparin 25,000 UNIT/500 151 / 151 311 / 311 47 / 47 ML D5W 25,000 unit In 500 ml @ 12 UNIT/KG/HR 17.64 mls/hr IVC .Q24H [facility] Rx# :[id number] Oral 60 / 60 0 / 0 480 / 480 Blood Product 1050 / 1050 Rbcs Leuko Poor As-1 350 / 350 Unit [id number] Rbcs Leuko Poor As-1 700 / 700 Unit [id number] Output: Urine 0 / 0 0 / 0 300 / 300 Total Dialysis (HD) 3330 / 3330 Output Other: Meal Breakfast Percent of Meal Consumed 100% Weight 73.8 kg Blood Glucose* 256 173 173 Hemodialysis Net Fluid 2000 Removed (mL) Patient Weight 11/04/16 23:59 Weight 73.8 kg - General Appearance General appearance: Present: well-developed, appears started age, chronically ill, frail EENT: Present: ATNC, PERRL Neck: Present: supple Respiratory: Present: rales, course breath sounds, rhonchi Cardiology: Present: no edema, normal S1, normal S2 Dialysis Vascular Access: Arteriovenous Fistula (Left Upper Extremity) thrill: Yes bruit: Yes Gastrointestinal: Present: normoactive bowel sounds, no guarding Additional Comments: Ileostomy and Urostomy with dark burgundy colored appearing urine in the urostomy bag. Integumentary: Present: warm and dry Neurologic: Present: no focal deficit Musculoskeletal: Present: no deformities, no erythema, no cyanosis Psychiatric: Present: mood/affect appropriate, cooperative - Lab 11/04/16 04:02 11/04/16 04:02 Most recent lab results Calcium 8.6 mg/dL (8.6-10.8) 11/04/16 04:02 Phosphorus 2.4 mg/dL (2.3-4.7) 11/03/16 00:47 Magnesium 2.2 mg/dL (1.6-2.6) 11/03/16 12:20 Consult Discharge Plan - Plan Referrals: Huey Ortega MD [Non-Partnered Physician] - 11/15/16 8:40 am NONE,PCP [Primary Care Provider] -
--- NOTE | 2016-11-04 10:36 | Nephrology Progress Note ---
Date of Encounter: 11/04/16 Time of Encounter: 10:33 - Assessment and Plan (1) ESRD (end stage renal disease) on dialysis Current Visit: Yes Status: Chronic HD today for both clearance and volume control The initial labs with hypokalemia most likely are not accurate, since blood drawn immediately after dialysis will not have equilibrated all body compartments. I do not suspect chronic severe hypokalemia. Next HD is planned for Monday. Appreciate the hospitalists (2) Anemia in chronic kidney disease Current Visit: Yes Status: Chronic Goal Hgb is 10-11 in the setting of CKD. Qualifiers: Chronic kidney disease stage: on chronic dialysis Qualified Code(s): N18.6 - End stage renal disease; D63.1 - Anemia in chronic kidney disease; Z99.2 - Dependence on renal dialysis (3) Dyspnea Current Visit: Yes Status: Acute Appreciate the hospitalists. Qualifiers: Dyspnea type: shortness of breath Qualified Code(s): R06.02 - Shortness of breath; R06.00 - Dyspnea, unspecified; R06.01 - Orthopnea Subjective Principal diagnosis: ESRD, PNA Interval history: Pt was s/e in 2N. She reported feeling fatigued. We discussed her shortness of breath and cough. She is due for dialysis today. Objective - Vital Signs Vital signs: Vital Signs Temp Pulse Resp BP Pulse Ox 11/04/16 08:15 98.3 F 73 18 136/71 95 11/04/16 07:25 98.3 F 73 18 136/71 95 11/04/16 03:44 98.4 F 70 18 120/60 94 11/03/16 23:40 98.8 F 74 18 115/56 95 11/03/16 20:34 99.7 F H 78 18 128/64 96 11/03/16 19:00 98.2 F 18 138/66 11/03/16 18:30 144/73 11/03/16 18:15 146/76 11/03/16 18:00 157/73 11/03/16 17:45 152/70 11/03/16 17:35 99 F 73 16 151/72 11/03/16 17:30 147/76 11/03/16 17:20 99 F 75 16 153/77 11/03/16 17:15 158/75 11/03/16 17:00 100 F H 74 16 141/69 11/03/16 16:45 100 F H 73 16 138/69 11/03/16 16:30 134/69 11/03/16 16:15 131/59 11/03/16 16:10 99.9 F H 79 16 135/71 11/03/16 16:00 132/67 11/03/16 15:55 100 F H 73 16 138/56 95 11/03/16 15:45 113/53 11/03/16 15:30 99.8 F H 18 118/59 11/03/16 11:20 98.6 F 71 17 102/54 95 11/03/16 10:57 98.6 F 71 17 102/54 Intake and Output 11/03/16 11/04/16 11/04/16 23:59 07:59 15:59 Intake Total 1261 / 1261 311 / 311 527 / 527 Output Total 3330 / 3330 0 / 0 300 / 300 Balance -2069 / -2069 311 / 311 227 / 227 Intake: IV Fluids 151 / 151 311 / 311 47 / 47 Heparin 25,000 UNIT/500 151 / 151 311 / 311 47 / 47 ML D5W 25,000 unit In 500 ml @ 12 UNIT/KG/HR 17.64 mls/hr IVC .Q24H [facility] Rx# :[id number] Oral 60 / 60 0 / 0 480 / 480 Blood Product 1050 / 1050 Rbcs Leuko Poor As-1 350 / 350 Unit [id number] Rbcs Leuko Poor As-1 700 / 700 Unit [id number] Output: Urine 0 / 0 0 / 0 300 / 300 Total Dialysis (HD) 3330 / 3330 Output Other: Meal Breakfast Percent of Meal Consumed 100% Weight 73.8 kg Blood Glucose* 256 173 173 Hemodialysis Net Fluid 2000 Removed (mL) Patient Weight 11/04/16 23:59 Weight 73.8 kg - General Appearance General appearance: Present: well-developed, well-nourished, appears started age , frail EENT: Present: ATNC, PERRL, mucous membranes moist Neck: Present: supple Respiratory: Present: course breath sounds Cardiology: Present: no edema (only trace ankle nonpitting/subcutanous chronic swelling), regular rate, regular rhythm, normal S1, normal S2 Dialysis Vascular Access: Arteriovenous Fistula thrill: Yes bruit: Yes Gastrointestinal: Present: normoactive bowel sounds Integumentary: Present: no rash, warm and dry Neurologic: Present: no focal deficit, no asterixis, alert and oriented x3 Musculoskeletal: Present: no deformities, no erythema, no cyanosis Psychiatric: Present: mood/affect appropriate, cooperative - Lab 11/04/16 04:02 11/04/16 04:02 Most recent lab results Calcium 8.6 mg/dL (8.6-10.8) 11/04/16 04:02 Phosphorus 2.4 mg/dL (2.3-4.7) 11/03/16 00:47 Magnesium 2.2 mg/dL (1.6-2.6) 11/03/16 12:20 Consult Discharge Plan - Plan Referrals: Huey Ortega MD [Non-Partnered Physician] - 11/15/16 8:40 am NONE,PCP [Primary Care Provider] -
--- NOTE | 2016-11-04 14:50 | Internal Med Progress Note ---
Date of Encounter: 11/04/16 Time of Encounter: 14:50 - Assessment and plan (1) Diastolic CHF Current Visit: Yes Status: Acute Assessment and plan: Acute pulmonary edema secondary to volume overload/acute on chronic diastolic CHF exacerbation Strict I's and O's and daily weight, continue dialysis May benefit from a fluid restriction Qualifiers: Congestive heart failure chronicity: acute on chronic Qualified Code(s): I50.33 - Acute on chronic diastolic (congestive) heart failure (2) NSTEMI (non-ST elevated myocardial infarction) Current Visit: Yes Status: Acute Assessment and plan: Continue aspirin, Lipitor, isosorbide, Coreg Nitroglycerin as needed Cardiology was consulted, the patient is refusing to have a cardiac the cardiac catheterization Heparin drip was stopped after 24 hours (3) Pulmonary edema Current Visit: Yes Status: Acute Qualifiers: Chronicity: acute Qualified Code(s): J81.0 - Acute pulmonary edema (4) ESRD (end stage renal disease) on dialysis Current Visit: Yes Status: Chronic Assessment and plan: Continue hemodialysis (5) Diabetes mellitus Current Visit: Yes Status: Acute Assessment and plan: Continue insulin sliding scale Qualifiers: Diabetes mellitus type: type 2 Diabetes mellitus complication status: with kidney complications Diabetes mellitus complication detail: with chronic kidney disease Diabetes mellitus care home insulin use: without adjunct faculty for medical terminology use Chronic kidney disease stage: on chronic dialysis Qualified Code(s): E11.22 - Type 2 diabetes mellitus with diabetic chronic kidney disease; N18.6 - End stage renal disease; Z99.2 - Dependence on renal dialysis (6) Anemia in chronic kidney disease Current Visit: Yes Status: Chronic Assessment and plan: Anemia of chronic disease No evidence of bleeding Patient was transfused 2 units during dialysis on 11/03/2016. Monitor CBC and follow-up as an outpatient May discharge in the morning if stable Qualifiers: Chronic kidney disease stage: on chronic dialysis Qualified Code(s): N18.6 - End stage renal disease; D63.1 - Anemia in chronic kidney disease; Z99.2 - Dependence on renal dialysis - Subjective Interval history: She is less short of breath, denies any chest pain, no abdominal pain, no diarrhea, no fevers. Feeling weak - Constitutional Vitals: Temp Pulse Resp BP Pulse Ox 99.2 F 82 18 132/63 92 11/04/16 11:47 11/04/16 12:01 11/04/16 11:47 11/04/16 11:47 11/04/16 11:47 General appearance: Present: A&O X 3, pleasant, no acute distress - Head Head exam: Present: atraumatic, normocephalic - Eye Eye exam: Present: PERRL, conjuntiva pink, sclera anicteric Pupils: Present: PERRL - Neck Neck exam general surgery: Present: supple, trachea midline. Absent: lymphadenopathy - Respiratory Respiratory exam: Present: CTAB, rales (Bibasilar fine crackles). Absent: accessory muscle use, rhonchi, wheezes - Cardiovascular Cardiovascular exam: Present: RRR, +S1, +S2. Absent: diastolic murmur, gallop, rubs, systolic murmur - GI/Abdominal GI/Abdominal exam: Present: distended, normal bowel sounds, soft, no peritoneal signs. Absent: tenderness - Extremities Exam Extremities exam: Present: warm, radial pulses palpable and symmetrical. Absent : calf tenderness, cyanotic, pedal edema - Neurological Exam Neurological exam: Present: CN II-XII intact, oriented X3, no focal deficits. Absent: pronater drift, facial droop, speech deficit - Skin Skin exam: Present: dry, intact Additional comments: Left upper extremity AV fistula with good thrill Internal Medicine: Result - Labs CBC & Chem 7: 11/04/16 04:02 11/04/16 04:02 Labs: Short CBC 11/03/16 11/04/16 Range/Units 21:12 04:02 WBC 9.5 (4.3-11.1) K/mcL Hgb 9.1 L D 8.6 L (11.5-15.4) g/dL Hct 28.1 L 27.3 L (35.3-44.9) % Plt Count 203 (140-400) K/mcL BMP 11/04/16 04:02 Sodium 135 L Potassium 3.9 Chloride 98 Carbon Dioxide 26 BUN 23 H Creatinine 4.19 H Glucose 121 H Calcium 8.6 - ABG Interpretation ABG results: PT/INR, D-dimer PT 12.8 Seconds (9.4-12.1) H 11/03/16 03:39 Consult Discharge Plan - Plan Referrals: Huey Ortega MD [Non-Partnered Physician] - 11/15/16 8:40 am NONE,PCP [Primary Care Provider] -
[2016-11-04] MEDS: Insulin DETEMIR 100 UNIT/ML X5UNITS SQ SCH (20:27)
[2016-11-05 00:36] LABS: Basophils % 0.1 %; Eosinophils # 0.1 K/mcL (0.0-0.6); Eosinophils % 0.7 %; Hematocrit 28.2 % (35.3-44.9); Hemoglobin 9.1 g/dL (11.5-15.4); Immature Granulocytes % 0.7 % (0-4); Lymphocytes # 0.5 K/mcL (0.6-4.6); Lymphocytes % 5.7 %; Mean Corpuscular HGB Conc 32.3 g/dL (31.6-35.5); Mean Corpuscular Hemoglobin 28.3 pg (28.0-33.3); Mean Corpuscular Volume 87.9 fL (83.0-100.0); Mean Platelet Volume 9.8 fL (9.4-12.4); Monocytes # 0.5 K/mcL (0.0-1.3); Monocytes % 5.6 %; Neutrophils # 7.6 K/mcL (1.6-8.9); Platelet Count 187 K/mcL (140-400); Red Blood Count 3.21 M/mcL (3.82-4.97); Red Cell Distribution Width 15.4 % (11.5-14.5); Segmented Neutrophils % 87.2 %
[2016-11-05 00:48] LABS: Potassium 4.1 mEq/L (3.5-4.5)
--- NOTE | 2016-11-05 01:43 | Event Note ---
Date of Encounter: 11/05/16 Time of Encounter: 01:00 Pt developped fever 101.3. Still SOB although had HD today. Can not off O2 (pt doesn't use O2 at home), has mild nonproductive cough. See Pt bed side, denies pain, mild SOB improved from admission but still not baseline. Denies abd pain. lungs are clear. Heart S1S2 RRR. CBC, Blood cx, lactate, CXR stat ordered. CXR shows increased opicities. Will start to treat pt as HCAP with Vanco and zosyn considering SOB, cough, and fever , with positive CXR.
[2016-11-05] MEDS ORDERED: Vancomycin 1,000 MG in D5% in Water 250 ML IVPB SCH (02:00)
[2016-11-05] MEDS ORDERED: Vancomycin 1,500 MG in D5% in Water 250 ML IVPB ONE (03:00)
[2016-11-05 04:44] LABS: Basophils % 0.2 %; Eosinophils # 0.1 K/mcL (0.0-0.6); Eosinophils % 0.7 %; Hematocrit 26.8 % (35.3-44.9); Hemoglobin 8.6 g/dL (11.5-15.4); Immature Granulocytes % 1.1 % (0-4); Lymphocytes # 0.6 K/mcL (0.6-4.6); Lymphocytes % 7.2 %; Mean Corpuscular HGB Conc 32.1 g/dL (31.6-35.5); Mean Corpuscular Hemoglobin 28.5 pg (28.0-33.3); Mean Corpuscular Volume 88.7 fL (83.0-100.0); Mean Platelet Volume 10.3 fL (9.4-12.4); Monocytes # 0.5 K/mcL (0.0-1.3); Monocytes % 6.3 %; Neutrophils # 6.8 K/mcL (1.6-8.9); Platelet Count 187 K/mcL (140-400); Red Blood Count 3.02 M/mcL (3.82-4.97); Red Cell Distribution Width 15.6 % (11.5-14.5); Segmented Neutrophils % 84.5 %
[2016-11-05 04:57] LABS: Calcium 8.6 mg/dL (8.6-10.8); Potassium 4.2 mEq/L (3.5-4.5)
[2016-11-05] MEDS: Aspirin Enteric Coated 81 MG Tablet PO SCH (08:42)
[2016-11-05] MEDS: Isosorbide MONOnitrate (24 HR) 30 MG TAB.ER.24H PO SCH (08:42)
[2016-11-05] MEDS: hydrALAZINE 25 MG TABLET PO SCH ×3 (08:42→21:08)
[2016-11-05] MEDS: Insulin LISPRO 300 UNITS/3 ML VIAL SQ SCH ×4 (08:43→21:10)
[2016-11-05] MEDS: Piperacillin/Tazobactam 3.375 GM in D5% in Water (Mini-Bag+) 100 ML IVPB SCH ×2 (08:43→10:11)
[2016-11-05] MEDS ORDERED: Aminoglycoside Consult 1 EACH MC ONE (09:32)
--- NOTE | 2016-11-05 10:27 | Nephrology Progress Note ---
Date of Encounter: 11/05/16 Time of Encounter: 10:27 - Assessment and Plan (1) ESRD (end stage renal disease) on dialysis Current Visit: Yes Status: Chronic Next HD planned for Monday. Cont to follow a renal protective / conservative strategy. Appreciate the hospitalists (2) Anemia in chronic kidney disease Current Visit: Yes Status: Chronic Goal Hgb is 10-11 in the setting of CKD. Qualifiers: Chronic kidney disease stage: on chronic dialysis Qualified Code(s): N18.6 - End stage renal disease; D63.1 - Anemia in chronic kidney disease; Z99.2 - Dependence on renal dialysis (3) Dyspnea Current Visit: Yes Status: Acute Appreciate the hospitalists. Qualifiers: Dyspnea type: shortness of breath Qualified Code(s): R06.02 - Shortness of breath; R06.00 - Dyspnea, unspecified; R06.01 - Orthopnea Subjective Principal diagnosis: ESRD, PNA Interval history: Pt was s/e earlier in the day. He did not affirm N/V/D or uremic symptoms. Objective - Vital Signs Vital signs: Vital Signs Temp Pulse Resp BP Pulse Ox 11/05/16 10:13 18 97 11/05/16 08:38 95 11/05/16 07:25 99.5 F 76 16 123/63 95 11/05/16 05:30 16 11/05/16 04:10 98.8 F 77 16 116/55 96 11/05/16 01:50 99.8 F H 11/04/16 23:20 101.3 F H 86 16 122/57 96 11/04/16 19:55 99.3 F 90 18 123/57 94 11/04/16 19:20 99.9 F H 18 128/59 11/04/16 19:00 128/56 11/04/16 18:30 124/63 11/04/16 18:00 124/62 11/04/16 17:30 129/59 11/04/16 17:00 137/63 11/04/16 16:30 146/66 11/04/16 16:00 142/69 11/04/16 15:30 88 F L 16 148/72 11/04/16 12:01 82 11/04/16 11:47 99.2 F 81 18 132/63 92 Intake and Output 11/04/16 11/05/1617 23:59 07:59 15:59 Intake Total 250 / 250 Output Total 3600 / 3600 Balance -3600 / -3600 250 / 250 Intake: IV Fluids 250 / 250 Vancocin 1,500 MG In 250 / 250 Dextrose 5% 250 ML @ 166. 67 mls/hr IVPB ONCE ONE Rx#:[id number] Output: Urine 0 / 0 Total Dialysis (HD) 3600 / 3600 Output Other: # Voids 0 # Bowel Movements 0 Weight 76.1 kg Blood Glucose* 138 226 Hemodialysis Net Fluid 3000 Removed (mL) Patient Weight 11/05/16 23:59 Weight 76.1 kg - General Appearance General appearance: Present: well-developed, well-nourished, appears started age , frail EENT: Present: ATNC, PERRL, mucous membranes moist Respiratory: Present: clear Cardiology: Present: no edema, regular rate, regular rhythm, normal S1, normal S2 Dialysis Vascular Access: Arteriovenous Fistula thrill: Yes bruit: Yes Gastrointestinal: Present: normoactive bowel sounds, no tenderness Neurologic: Present: no focal deficit, no asterixis, alert and oriented x3 Musculoskeletal: Present: no deformities, no clubbing Psychiatric: Present: mood/affect appropriate, cooperative - Lab 11/08/16 03:21 11/08/16 03:21 Most recent lab results Calcium 8.6 mg/dL (8.6-10.8) 11/05/16 04:01 Phosphorus 2.4 mg/dL (2.3-4.7) 11/03/16 00:47 Magnesium 2.2 mg/dL (1.6-2.6) 11/03/16 12:20 Consult Discharge Plan - Plan Referrals: Huey Ortega MD [Non-Partnered Physician] - 11/15/16 8:40 am
[2016-11-05] MEDS ORDERED: Ondansetron ODT 4 MG TAB.RAPDIS SL PRN (11:48)
[2016-11-05] MEDS ORDERED: Cefepime HCl 1,000 MG in D5% in Water (Mini-Bag+) 100 ML IVPB SCH (12:00)
[2016-11-05] MEDS ORDERED: levoFLOXacin 500 MG TABLET PO SCH (12:00)
--- NOTE | 2016-11-05 12:00 | Internal Med Progress Note ---
Date of Encounter: 11/05/16 Time of Encounter: 11:58 - Assessment and plan (1) Pneumonia Current Visit: Yes Status: Acute Assessment and plan: Possible gram-negative pneumonia Start Levaquin and cefepime, discontinue IV vancomycin and Zosyn Cultures Chest x-ray shows a left retrocardiac opacity increased to cover percent bronchopneumonia or bronchitis Qualifiers: Pneumonia type: due to unspecified organism Laterality: left Lung location: lower lobe of lung Qualified Code(s): J18.1 - Lobar pneumonia, unspecified organism (2) Diastolic CHF Current Visit: Yes Status: Acute Assessment and plan: Acute pulmonary edema secondary to volume overload/acute on chronic diastolic CHF exacerbation Strict I's and O's and daily weight, continue dialysis fluid restriction Qualifiers: Congestive heart failure chronicity: acute on chronic Qualified Code(s): I50.33 - Acute on chronic diastolic (congestive) heart failure (3) NSTEMI (non-ST elevated myocardial infarction) Current Visit: Yes Status: Acute Assessment and plan: Continue aspirin, Lipitor, isosorbide, Coreg Nitroglycerin as needed Cardiology was consulted, the patient is refusing to have a cardiac the cardiac catheterization Heparin drip was stopped after 24 hours (4) Pulmonary edema Current Visit: Yes Status: Acute Qualifiers: Chronicity: acute Qualified Code(s): J81.0 - Acute pulmonary edema (5) ESRD (end stage renal disease) on dialysis Current Visit: Yes Status: Chronic Assessment and plan: Continue hemodialysis (6) Diabetes mellitus Current Visit: Yes Status: Acute Assessment and plan: Continue insulin sliding scale Qualifiers: Diabetes mellitus type: type 2 Diabetes mellitus complication status: with kidney complications Diabetes mellitus complication detail: with chronic kidney disease 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 Monitor CBC and follow-up as an outpatient e Qualifiers: Chronic kidney disease stage: on chronic dialysis Qualified Code(s): N18.6 - End stage renal disease; D63.1 - Anemia in chronic kidney disease; Z99.2 - Dependence on renal dialysis - Subjective Interval history: Coughing constantly, short of breath, denies any chest pain, no abdominal pain, no diarrhea, had a fever of 101.3 on 11/04/2016. Feeling weak - Constitutional Vitals: Temp Pulse Resp BP Pulse Ox 98.9 F 75 18 106/56 97 11/05/16 11:02 11/05/16 11:02 11/05/16 11:02 11/05/16 11:02 11/05/16 11:02 General appearance: Present: A&O X 3, pleasant, no acute distress - Head Head exam: Present: atraumatic, normocephalic - Eye Eye exam: Present: PERRL, conjuntiva pink, sclera anicteric Pupils: Present: PERRL - Neck Neck exam general surgery: Present: supple, trachea midline. Absent: lymphadenopathy - Respiratory Respiratory exam: Present: CTAB, rales (Left basilar crackles). Absent: accessory muscle use, rhonchi, wheezes - Cardiovascular Cardiovascular exam: Present: RRR, +S1, +S2. Absent: diastolic murmur, gallop, rubs, systolic murmur - GI/Abdominal GI/Abdominal exam: Present: normal bowel sounds, soft, no peritoneal signs. Absent: distended, tenderness - Extremities Exam Extremities exam: Present: warm, radial pulses palpable and symmetrical. Absent : calf tenderness, cyanotic, pedal edema - Neurological Exam Neurological exam: Present: CN II-XII intact, oriented X3, no focal deficits. Absent: pronater drift, facial droop, speech deficit - Skin Skin exam: Present: dry, intact Additional comments: Left upper extremity AV fistula with good thrill Internal Medicine: Result - Labs CBC & Chem 7: 11/05/16 04:01 11/05/16 04:01 Labs: Short CBC 11/05/16 11/05/16 Range/Units 00:23 04:01 WBC 8.7 8.1 (4.3-11.1) K/mcL Hgb 9.1 L 8.6 L (11.5-15.4) g/dL Hct 28.2 L 26.8 L (35.3-44.9) % Plt Count 187 187 (140-400) K/mcL Neutrophils # 7.6 6.8 (1.6-8.9) K/mcL BMP 11/05/16 11/05/16 00:23 04:01 Sodium 135 L 132 L Potassium 4.1 4.2 Chloride 96 L 96 L Carbon Dioxide 27 26 BUN 17 19 Creatinine 3.71 H 3.93 H Glucose 233 H 252 H Calcium 9.0 8.6 - ABG Interpretation ABG results: PT/INR, D-dimer PT 12.8 Seconds (9.4-12.1) H 11/03/16 03:39 - Impressions Impressions Chest X-Ray 11/05/16 00:08 IMPRESSION: Increased central opacity, especially in the left retrocardiac region. This is suggestive of broncho pneumonia or bronchitis. D/ / Michael Barnes MD / Michael Barnes MD Interpreting Provider: Michael Barnes MD Consult Discharge Plan - Plan Referrals: Huey Ortega MD [Non-Partnered Physician] - 11/15/16 8:40 am NONE,PCP [Primary Care Provider] -
[2016-11-05] MEDS: *HR* HYDROcodone/Acet 5/325 mg TABLET PO PRN (21:07)
[2016-11-05] MEDS: Insulin DETEMIR 100 UNIT/ML X5UNITS SQ SCH (21:12)
[2016-11-06 03:36] LABS: Hematocrit 26.2 % (35.3-44.9); Hemoglobin 8.5 g/dL (11.5-15.4); Mean Corpuscular HGB Conc 32.4 g/dL (31.6-35.5); Mean Corpuscular Hemoglobin 28.1 pg (28.0-33.3); Mean Corpuscular Volume 86.8 fL (83.0-100.0); Mean Platelet Volume 9.9 fL (9.4-12.4); Platelet Count 190 K/mcL (140-400); Red Blood Count 3.02 M/mcL (3.82-4.97); Red Cell Distribution Width 15.5 % (11.5-14.5)
[2016-11-06 03:49] LABS: Calcium 9.1 mg/dL (8.6-10.8); Potassium 4.4 mEq/L (3.5-4.5)
[2016-11-06] MEDS: hydrALAZINE 25 MG TABLET PO SCH ×3 (07:39→21:03)
[2016-11-06] MEDS: Isosorbide MONOnitrate (24 HR) 30 MG TAB.ER.24H PO SCH (07:39)
[2016-11-06] MEDS: Aspirin Enteric Coated 81 MG Tablet PO SCH (07:39)
[2016-11-06] MEDS: Insulin LISPRO 300 UNITS/3 ML VIAL SQ SCH ×4 (08:37→21:04)
[2016-11-06] MEDS ORDERED: Desitin (Zinc Oxide) 56 GM TUBE TP PRN (13:04)
--- NOTE | 2016-11-06 13:07 | Internal Med Progress Note ---
Date of Encounter: 11/06/16 Time of Encounter: 13:05 - Assessment and plan (1) Pneumonia Current Visit: Yes Status: Acute Assessment and plan: Possible gram-negative pneumonia Start Levaquin and cefepime day 2 , discontinued IV vancomycin and Zosyn Cultures Chest x-ray shows a left retrocardiac opacity increased to cover percent bronchopneumonia or bronchitis Qualifiers: Pneumonia type: due to unspecified organism Laterality: left Lung location: lower lobe of lung Qualified Code(s): J18.1 - Lobar pneumonia, unspecified organism (2) Diastolic CHF Current Visit: Yes Status: Acute Assessment and plan: Acute pulmonary edema secondary to volume overload/acute on chronic diastolic CHF exacerbation Strict I's and O's and daily weight, continue dialysis fluid restriction Qualifiers: Congestive heart failure chronicity: acute on chronic Qualified Code(s): I50.33 - Acute on chronic diastolic (congestive) heart failure (3) NSTEMI (non-ST elevated myocardial infarction) Current Visit: Yes Status: Acute Assessment and plan: Continue aspirin, Lipitor, isosorbide, Coreg Nitroglycerin as needed Cardiology was consulted, the patient is refusing to have a cardiac the cardiac catheterization Heparin drip was stopped after 24 hours (4) Pulmonary edema Current Visit: Yes Status: Acute Qualifiers: Chronicity: acute Qualified Code(s): J81.0 - Acute pulmonary edema (5) ESRD (end stage renal disease) on dialysis Current Visit: Yes Status: Chronic Assessment and plan: Continue hemodialysis (6) Diabetes mellitus Current Visit: Yes Status: Acute Assessment and plan: Continue insulin sliding scale Qualifiers: Diabetes mellitus type: type 2 Diabetes mellitus complication status: with kidney complications Diabetes mellitus complication detail: with chronic kidney disease Diabetes mellitus group home insulin use: without intermodal truck driver use Chronic kidney disease stage: on chronic dialysis Qualified Code(s): E11.22 - Type 2 diabetes mellitus with diabetic chronic kidney disease; N18.6 - End stage renal disease; Z99.2 - Dependence on renal dialysis (7) Anemia in chronic kidney disease Current Visit: Yes Status: Chronic Assessment and plan: Anemia of chronic disease No evidence of bleeding Patient was transfused 2 units during dialysis on 11/03/2016. Monitor CBC and follow-up as an outpatient e Qualifiers: Chronic kidney disease stage: on chronic dialysis Qualified Code(s): N18.6 - End stage renal disease; D63.1 - Anemia in chronic kidney disease; Z99.2 - Dependence on renal dialysis - Subjective Interval history: Coughing less, less short of breath, denies any chest pain, no abdominal pain, no diarrhea, had a fever of 101.3 on 11/04/2016. Feeling weak - Constitutional Vitals: Temp Pulse Resp BP Pulse Ox 98.3 F 76 16 126/61 99 11/06/16 11:16 11/06/16 11:16 11/06/16 11:16 11/06/16 11:16 11/06/16 11:16 General appearance: Present: A&O X 3, pleasant, no acute distress - Head Head exam: Present: atraumatic, normocephalic - Eye Eye exam: Present: PERRL, conjuntiva pink, sclera anicteric Pupils: Present: PERRL - Neck Neck exam general surgery: Present: supple, trachea midline. Absent: lymphadenopathy - Respiratory Respiratory exam: Present: CTAB, rales. Absent: accessory muscle use, rhonchi, wheezes - Cardiovascular Cardiovascular exam: Present: RRR, +S1, +S2. Absent: diastolic murmur, gallop, rubs, systolic murmur - GI/Abdominal GI/Abdominal exam: Present: normal bowel sounds, soft, no peritoneal signs. Absent: distended, tenderness - Extremities Exam Extremities exam: Present: warm, radial pulses palpable and symmetrical. Absent : calf tenderness, cyanotic, pedal edema - Neurological Exam Neurological exam: Present: CN II-XII intact, oriented X3, no focal deficits. Absent: pronater drift, facial droop, speech deficit - Skin Skin exam: Present: dry, intact Additional comments: purple bulous skin lesion over dorsum of fingers possible contact dermatitis topical treatment Internal Medicine: Result - Labs CBC & Chem 7: 11/06/16 03:24 11/06/16 03:24 Labs: Short CBC 11/06/16 Range/Units 03:24 WBC 8.0 (4.3-11.1) K/mcL Hgb 8.5 L (11.5-15.4) g/dL Hct 26.2 L (35.3-44.9) % Plt Count 190 (140-400) K/mcL BMP 11/06/16 03:24 Sodium 131 L Potassium 4.4 Chloride 94 L Carbon Dioxide 27 BUN 34 H D Creatinine 5.80 H Glucose 141 H Calcium 9.1 - ABG Interpretation ABG results: PT/INR, D-dimer PT 12.8 Seconds (9.4-12.1) H 11/03/16 03:39 Consult Discharge Plan - Plan Referrals: Huey Ortega MD [Non-Partnered Physician] - 11/15/16 8:40 am NONE,PCP [Primary Care Provider] -
[2016-11-06] MEDS: Cefepime HCl 500 MG in D5% in Water 100 ML IVPB SCH (14:45)
[2016-11-06] MEDS: predniSONE 20 MG TABLET PO SCH (14:45)
[2016-11-06] MEDS: Insulin DETEMIR 100 UNIT/ML X5UNITS SQ SCH (21:04)
[2016-11-07 05:28] LABS: Hematocrit 24.7 % (35.3-44.9); Hemoglobin 8.2 g/dL (11.5-15.4); Mean Corpuscular HGB Conc 33.2 g/dL (31.6-35.5); Mean Corpuscular Hemoglobin 28.2 pg (28.0-33.3); Mean Corpuscular Volume 84.9 fL (83.0-100.0); Mean Platelet Volume 10.3 fL (9.4-12.4); Platelet Count 210 K/mcL (140-400); Red Blood Count 2.91 M/mcL (3.82-4.97)
[2016-11-07 05:38] LABS: Potassium 4.4 mEq/L (3.5-4.5)
[2016-11-07 05:40] LABS: Calcium 7.4 mg/dL (8.6-10.8)
[2016-11-07] MEDS ORDERED: 0.9 % Sodium Chloride 250 ML IVC PRN (06:46)
[2016-11-07] MEDS: hydrALAZINE 25 MG TABLET PO SCH ×4 (09:21→20:55)
[2016-11-07] MEDS: Aspirin Enteric Coated 81 MG Tablet PO SCH (09:21)
[2016-11-07] MEDS: Isosorbide MONOnitrate (24 HR) 30 MG TAB.ER.24H PO SCH (09:21)
[2016-11-07] MEDS: predniSONE 20 MG TABLET PO SCH ×2 (09:22→09:24)
[2016-11-07] MEDS: Insulin LISPRO 300 UNITS/3 ML VIAL SQ SCH ×5 (09:26→20:51)
--- NOTE | 2016-11-07 09:37 | Internal Med Progress Note ---
Date of Encounter: 11/07/16 Time of Encounter: 09:35 - Assessment and plan (1) Pneumonia Current Visit: Yes Status: Acute Assessment and plan: Possible gram-negative pneumonia continue Levaquin and cefepime day 3 , discontinued IV vancomycin and Zosyn Cultures Chest x-ray shows a left retrocardiac opacity increased to cover percent bronchopneumonia or bronchitis Qualifiers: Pneumonia type: due to unspecified organism Laterality: left Lung location: lower lobe of lung Qualified Code(s): J18.1 - Lobar pneumonia, unspecified organism (2) Diastolic CHF Current Visit: Yes Status: Acute Assessment and plan: Acute pulmonary edema secondary to volume overload/acute on chronic diastolic CHF exacerbation Strict I's and O's and daily weight, continue dialysis fluid restriction Qualifiers: Congestive heart failure chronicity: acute on chronic Qualified Code(s): I50.33 - Acute on chronic diastolic (congestive) heart failure (3) NSTEMI (non-ST elevated myocardial infarction) Current Visit: Yes Status: Acute Assessment and plan: Continue aspirin, Lipitor, isosorbide, Coreg Nitroglycerin as needed Cardiology was consulted, the patient is refusing to have a cardiac the cardiac catheterization Heparin drip was stopped after 24 hours (4) Pulmonary edema Current Visit: Yes Status: Acute Assessment and plan: resolved Qualifiers: Chronicity: acute Qualified Code(s): J81.0 - Acute pulmonary edema (5) ESRD (end stage renal disease) on dialysis Current Visit: Yes Status: Chronic Assessment and plan: Continue hemodialysis (6) Diabetes mellitus Current Visit: Yes Status: Acute Assessment and plan: Continue insulin sliding scale Qualifiers: Diabetes mellitus type: type 2 Diabetes mellitus complication status: with kidney complications Diabetes mellitus complication detail: with chronic kidney disease Diabetes mellitus [facility] insulin use: without superintendent marine oil terminal use Chronic kidney disease stage: on chronic dialysis Qualified Code(s): E11.22 - Type 2 diabetes mellitus with diabetic chronic kidney disease; N18.6 - End stage renal disease; Z99.2 - Dependence on renal dialysis (7) Anemia in chronic kidney disease Current Visit: Yes Status: Chronic Assessment and plan: Anemia of chronic disease No evidence of bleeding Patient was transfused 2 units during dialysis on 11/03/2016. Monitor CBC and follow-up as an outpatient e Qualifiers: Chronic kidney disease stage: on chronic dialysis Qualified Code(s): N18.6 - End stage renal disease; D63.1 - Anemia in chronic kidney disease; Z99.2 - Dependence on renal dialysis (8) Dermatological disorder Current Visit: Yes Status: Acute Assessment and plan: unclear etiology, allergic vs medication related? prednisone started Rheumatology and Dermatology recommendations appreciated - Subjective Interval history: COmplains of pain over purplish bulous lesions over fingers and nose. Coughing less, less short of breath, denies any chest pain, no abdominal pain, no diarrhea, had a fever of 101.3 on 11/04/2016. Feeling weak - Constitutional Vitals: Temp Pulse Resp BP Pulse Ox 98.0 F 83 19 147/68 94 11/07/16 06:58 11/07/16 06:58 11/07/16 06:58 11/07/16 06:58 11/07/16 06:58 General appearance: Present: A&O X 3, pleasant, no acute distress Exam: - Head Head exam: Present: atraumatic, normocephalic - Eye Eye exam: Present: PERRL, conjuntiva pink, sclera anicteric Pupils: Present: PERRL - Neck Neck exam general surgery: Present: supple, trachea midline. Absent: lymphadenopathy - Respiratory Respiratory exam: Present: CTAB, rales. Absent: accessory muscle use, rhonchi, wheezes - Cardiovascular Cardiovascular exam: Present: RRR, +S1, +S2. Absent: diastolic murmur, gallop, rubs, systolic murmur - GI/Abdominal GI/Abdominal exam: Present: normal bowel sounds, soft, no peritoneal signs. Absent: distended, tenderness - Extremities Exam Extremities exam: Present: warm, radial pulses palpable and symmetrical. Absent : calf tenderness, cyanotic, pedal edema - Neurological Exam Neurological exam: Present: CN II-XII intact, oriented X3, no focal deficits. Absent: pronater drift, facial droop, speech deficit - Skin Skin exam: Present: dry, intact Additional comments: purple bulous skin lesion over dorsum of fingers topical treatment - Skin Skin exam: Present: vesicles Additional comments: multiple purplish bulous lesions over fingers, nose and left eyelid. Internal Medicine: Result - Labs CBC & Chem 7: 11/07/16 05:00 11/07/16 05:00 Labs: Short CBC 11/07/16 Range/Units 05:00 WBC 5.8 (4.3-11.1) K/mcL Hgb 8.2 L (11.5-15.4) g/dL Hct 24.7 L (35.3-44.9) % Plt Count 210 (140-400) K/mcL BMP 11/07/16 05:00 Sodium 132 L Potassium 4.4 Chloride 102 Carbon Dioxide 17 L BUN 56 H D Creatinine 6.06 H Glucose 291 H Calcium 7.4 L D - ABG Interpretation ABG results: PT/INR, D-dimer PT 12.8 Seconds (9.4-12.1) H 11/03/16 03:39 Consult Discharge Plan - Plan Referrals: Huey Ortega MD [Non-Partnered Physician] - 11/15/16 8:40 am NONE,PCP [Primary Care Provider] -
--- NOTE | 2016-11-07 11:14 | Nephrology Progress Note ---
Date of Encounter: 11/07/16 Time of Encounter: 08:30 - Assessment and Plan (1) ESRD (end stage renal disease) on dialysis Current Visit: Yes Status: Chronic HD today. Rash on hands, nose, left periorbital skin: discussed with hospitalists. Appreciate the hospitalists (2) Anemia in chronic kidney disease Current Visit: Yes Status: Chronic Goal Hgb is 10-11 in the setting of CKD. Qualifiers: Chronic kidney disease stage: on chronic dialysis Qualified Code(s): N18.6 - End stage renal disease; D63.1 - Anemia in chronic kidney disease; Z99.2 - Dependence on renal dialysis (3) Dyspnea Current Visit: Yes Status: Acute Appreciate the hospitalists. Qualifiers: Dyspnea type: shortness of breath Qualified Code(s): R06.02 - Shortness of breath; R06.00 - Dyspnea, unspecified; R06.01 - Orthopnea Subjective Principal diagnosis: ESRD, PNA Interval history: Pt was s/e earlier today. She did not affirm N/V/D but did report feeling a rash on her hands. Objective - Vital Signs Vital signs: Vital Signs Temp Pulse Resp BP Pulse Ox 11/07/16 06:58 98.0 F 83 19 147/68 94 11/07/16 04:21 98.0 F 81 16 161/70 96 11/06/16 22:41 98.5 F 95 16 161/71 95 11/06/16 20:39 98.5 F 91 16 147/70 93 11/06/16 19:27 98.3 F 93 18 158/68 96 11/06/16 16:37 98.3 F 84 16 146/68 98 11/06/16 15:45 65 11/06/16 11:16 98.3 F 76 16 126/61 99 Intake and Output 11/06/16 11/07/16 11/07/16 23:59 07:59 15:59 Intake Total 720 / 720 120 / 120 Output Total 0 / 0 Balance 720 / 720 120 / 120 Intake: IV Fluids 100 / 100 Maxipime 500 MG In 100 / 100 Dextrose 5% 100 ML @ 200 mls/hr IVPB Q24H GO Rx#: [id number] Oral 620 / 620 120 / 120 Output: Urine 0 / 0 Other: Meal Dinner Percent of Meal Consumed 25% Weight 72.6 kg Blood Glucose* 383 349 Patient Weight 09/04/17 23:59 Weight 72.6 kg - General Appearance General appearance: Present: well-developed, well-nourished, appears started age EENT: Present: ATNC, PERRL Neck: Present: supple Respiratory: Present: course breath sounds Cardiology: Present: no edema, normal S1, normal S2 Dialysis Vascular Access: Arteriovenous Fistula thrill: Yes bruit: Yes Gastrointestinal: Present: normoactive bowel sounds, no guarding Integumentary: Present: rash Neurologic: Present: no focal deficit, no asterixis, alert and oriented x3 Musculoskeletal: Present: no erythema, no cyanosis Psychiatric: Present: mood/affect appropriate, cooperative - Lab 11/08/16 03:21 11/08/16 03:21 Most recent lab results Calcium 7.4 mg/dL (8.6-10.8) L D 11/07/16 05:00 Phosphorus 2.4 mg/dL (2.3-4.7) 11/03/16 00:47 Magnesium 2.2 mg/dL (1.6-2.6) 11/03/16 12:20 Consult Discharge Plan - Plan Referrals: Huey Ortega MD [Non-Partnered Physician] - 11/15/16 8:40 am
[2016-11-07] MEDS: Insulin DETEMIR 100 UNIT/ML X5UNITS SQ SCH ×2 (12:47→20:50)
[2016-11-07] MEDS ORDERED: levoFLOXacin 250 MG TABLET PO SCH (13:00)
[2016-11-07] MEDS: Cefepime HCl 500 MG in D5% in Water 100 ML IVPB SCH (14:37)
[2016-11-08 03:49] LABS: Hematocrit 25.8 % (35.3-44.9); Hemoglobin 8.5 g/dL (11.5-15.4); Mean Corpuscular HGB Conc 32.9 g/dL (31.6-35.5); Mean Corpuscular Hemoglobin 28.3 pg (28.0-33.3); Mean Platelet Volume 10.3 fL (9.4-12.4); Platelet Count 250 K/mcL (140-400); Red Cell Distribution Width 14.6 % (11.5-14.5)
[2016-11-08 04:00] LABS: Potassium 4.8 mEq/L (3.5-4.5)
[2016-11-08 04:03] LABS: Calcium 9.1 mg/dL (8.6-10.8)
[2016-11-08] MEDS: Aspirin Enteric Coated 81 MG Tablet PO SCH (07:51)
[2016-11-08] MEDS: predniSONE 20 MG TABLET PO SCH (07:51)
[2016-11-08] MEDS: Insulin DETEMIR 100 UNIT/ML X5UNITS SQ SCH ×2 (07:51→22:05)
[2016-11-08] MEDS: Isosorbide MONOnitrate (24 HR) 30 MG TAB.ER.24H PO SCH (07:51)
[2016-11-08] MEDS: Insulin LISPRO 300 UNITS/3 ML VIAL SQ SCH ×6 (07:52→16:47)
[2016-11-08] MEDS: hydrALAZINE 25 MG TABLET PO SCH ×3 (07:55→22:06)
--- NOTE | 2016-11-08 08:11 | Rheumatology Consult Note ---
<Atif Newton - Last Filed: 11/08/16 10:00> Date of Encounter: 11/08/16 Time of Encounter: 08:10 Rheumatology Assess and Plan (1) Dermatological disorder Current Visit: Yes Status: Acute worsening bullous rash involving b/l UE (hands, forearm), nose, and eyelids. reports new aching pain in hands today on prednisone with no improvement denies having this previously etiology unclear: on hydralazine which can cause drug induced lupus plan: hold hydralazine ANCA, ESPERANZA, anti-histone antibiodies will benfit from skin biopsy Dermatology consulted. (2) Pneumonia Current Visit: Yes Status: Acute followed by medicine on antibiotics Qualifiers: Pneumonia type: due to unspecified organism Laterality: left Lung location: lower lobe of lung Qualified Code(s): J18.1 - Lobar pneumonia, unspecified organism (3) NSTEMI (non-ST elevated myocardial infarction) Current Visit: Yes Status: Acute followed by medicine and cardiology on aspirin, bblocker, imdur, statin (4) ESRD (end stage renal disease) on dialysis Current Visit: Yes Status: Chronic followed by nephrology Dialysis planned for today Rheumatology HPI Consult date: 11/06/16 Requesting physician: Pedro Roman Consult reason: bullous rash Chief complaint: sob History of present illness: Ms. Giraldo is a 65 year old female admitted to hospital for NSTEMI and pneumonia. Rheumatology consult was placed for appearance of bullous rash of b/l hand worse on right on 11/06/16. Patient was started on oral prednisone by primary team. Patient describes waking up with rash with sensation of burning. Rash is bullous, brown/red on dorsal aspect of b/l fingers, tip of nose, upper left eyelid and lower left eyelid. Reports in next 24 to 48 hours rash has worsened, spread to right forearm. She is unable to fully flex the right 2nd and 3rd digit. Reports new onset of aching pain in her fingers this morning. Denies having rash in past. ROS: Denies fevers, chills, headache, blurry vision, eye discharge, nasal discharge, mouth ulcers, chest pain, N/V, abdominal pain, discoloration of fingertips, muscle aches Reports: cough, sob, numbness, tingling Past Med Surg Social Fam HX - Past Medical History Medical history: CHF, diabetes, hyperlipidemia, hypertension, renal disease, valvular heart disease, other Psychiatric history: no psych history - Past Surgical History Surgical History: cholecystectomy, hysterectomy - Social History Smoking Status: Never smoker Smokeless Tobacco Status: No Alcohol use: none Drug use: none Medications and Allergies Aspirin [Lo-Dose Aspirin EC] 81 mg PO DAILY 11/02/16 [History] Carvedilol [Coreg] 12.5 mg BID 11/02/16 [History] Cholecalciferol (D-3) [Vitamin D] 2,000 unit PO DAILY 11/02/16 [History] Insulin Glargine [Lantus] 15 - 40 unit SQ QPM 11/02/16 [History] Insulin LISPRO [HumaLOG] 1 - 8 unit SQ TID PRN 11/02/16 [History] Isosorbide MONOnitrate (24 HR) [Imdur] 30 mg PO DAILY 11/02/16 [History] amLODIPine [Norvasc] 10 mg PO DAILY 11/02/16 [History] Clopidogrel [Plavix] 75 mg PO DAILY 11/03/16 [History] Hydralazine HCl [Hydralazine HCl] 50 mg PO TID 11/03/16 [History] Lidocaine/Prilocaine CREAM [Emla] 1 appl TP AD PRN 11/03/16 [History] 3 Allergy/AdvReac Type Severity Reaction Status Date / Time Erythromycin Base Allergy Intermediate Itching Verified 06/02/15 14:32 faloxitine Allergy Hives Uncoded 08/27/16 08:47 All Systems Review: A 10-system review of systems was performed and is negative for pertinent findings except as documented above in the HPI. Rheumatology Exam Vital Signs, Last 4 Hours Temp Pulse Resp BP Pulse Ox 11/08/16 07:34 98.6 F 78 16 136/84 94 11/08/16 04:28 98.6 F 81 17 144/75 94 Exam: Genearl: pleasant elderly female Eyes: EOMI, PERRLA Nose: erythema, bullous lesion on tip and brown discoloration of right nasolabial fold. Mouth: moist mucous membranes, absent ulcers Neck: absent lymphadenopathy Heart: rrr no murmur Lungs: left basilar crackles otherwise clear Abdomen: soft N/D, N/T +BS Skin: bullous, brownish red lesion on b/l fingers, dorsal distribution with involvement of right forearm. Largest located on right 2nd digit. extremities: unable to flex 2nd and 3rd digit and make fist with right hand. Left hand ROM WNL. No lesions on back,legs chest or abdomen. Peripheral pulses: 2/4 radial and dorsalis pedis. Rheumatology Results 11/08/16 03:21 11/08/16 03:21 All other labs normal. Consult Discharge Plan - Plan Referrals: Huey Ortega MD [Non-Partnered Physician] - 11/15/16 8:40 am <Lai Mcpherson - Last Filed: 11/08/16 17:40> Date of Encounter: 11/08/16 Rheumatology HPI History of present illness: Ms. Giraldo is a 65 year old female All Systems Review: A 10-system review of systems was performed and is negative for pertinent findings except as documented above in the HPI. Rheumatology Exam Vital Signs, Last 4 Hours Temp Pulse Resp BP Pulse Ox 11/08/16 16:09 98.7 F 82 16 147/82 92 Rheumatology Results 11/08/16 03:21 11/08/16 03:21 All other labs normal. - Attending Attestation I examined this patient and my medical decision making was reviewed with the resident physician. I agree with the documented findings, disposition and treatment as described with these exceptions. In summary, Crystal Giraldo is a 65-year-old female with PMH of ESRD on dialysis, CHD, HTN, HLD who presented to the hospital with an NSTEMI, pneumonia and developed hemorrhagic bullae. Bullae uncomfortable. Located on hands, nose and now extending to lower extremities. Blood cultures negative. CXR without nodules. She is on hydralazine which can be associated with some drug induced disorders but will await further workup. Derm consulted today who had differential and biopsy completed. At this time, from a rheumatologic standpoint, no clear underlying autoimmune connective tissue disease or inflammatory condition. Will check antibodies for drug induced vasculitis/connective tissue disease. On prednisone and will follow-up on results. I did discuss the case with Dr. Forte and dermatology.
--- NOTE | 2016-11-08 08:27 | Nephrology Progress Note ---
Date of Encounter: 11/08/16 Time of Encounter: 08:25 - Assessment and Plan (1) ESRD (end stage renal disease) on dialysis Current Visit: Yes Status: Chronic Plan for HD tomorrow Renal diet ordered Avoid nephrotoxins if possible (2) Dermatological disorder Current Visit: Yes Status: Acute per primary team (3) Anemia in chronic kidney disease Current Visit: Yes Status: Chronic Epo recently increased Goal hgb 10-11 Transfuse per parameters Qualifiers: Chronic kidney disease stage: on chronic dialysis Qualified Code(s): N18.6 - End stage renal disease; D63.1 - Anemia in chronic kidney disease; Z99.2 - Dependence on renal dialysis Subjective Principal diagnosis: ESRD, PNA Interval history: Patient seen and examined. Sitting up in bed, says she wished she felt better. Objective - Vital Signs Vital signs: Vital Signs Temp Pulse Resp BP Pulse Ox 11/08/16 07:34 98.6 F 78 16 136/84 94 11/08/16 04:28 98.6 F 81 17 144/75 94 11/07/16 23:08 98.2 F 77 17 112/53 98 11/07/16 20:18 98.1 F 83 20 116/75 98 11/07/16 20:00 97.3 F L 17 137/67 11/07/16 19:50 90/62 11/07/16 19:40 103/44 11/07/16 19:25 101/44 11/07/16 19:10 89/58 11/07/16 18:55 94/53 11/07/16 18:40 127/58 11/07/16 18:25 135/62 11/07/16 18:10 137/76 11/07/16 17:55 135/65 11/07/16 17:40 146/65 11/07/16 17:25 160/65 11/07/16 17:10 98.1 F 17 164/71 11/07/16 16:34 98.3 F 80 22 168/75 95 11/07/16 11:20 98.2 F 81 20 143/66 94 Intake and Output 11/07/16 11/08/16 11/08/16 23:59 07:59 15:59 Intake Total 600 / 600 60 / 60 Output Total 3015 / 3015 0 / 0 Balance -2415 / -2415 60 / 60 Intake: Oral 0 / 0 60 / 60 Intake, Rinseback and 600 / 600 Flushes Output: Urine 0 / 0 0 / 0 Total Dialysis (HD) 3015 / 3015 Output Other: Weight 72.6 kg Blood Glucose* 235 303 Hemodialysis Net Fluid 2165 Removed (mL) Patient Weight 11/08/16 23:59 Weight 72.6 kg - General Appearance General appearance: Present: well-developed, well-nourished EENT: Present: ATNC, mucous membranes moist, hearing intact, vision intact Neck: Present: supple Respiratory: Present: clear Cardiology: Present: no edema, normal S1, normal S2 Gastrointestinal: Present: no tenderness, no guarding Integumentary: Present: rash (multiple blisters on hands and nares), warm and dry, erythema Neurologic: Present: alert and oriented x3 Psychiatric: Present: mood/affect appropriate, cooperative - Lab 11/08/16 03:21 11/08/16 03:21 Most recent lab results Calcium 9.1 mg/dL (8.6-10.8) D 11/08/16 03:21 Phosphorus 2.4 mg/dL (2.3-4.7) 11/03/16 00:47 Magnesium 2.2 mg/dL (1.6-2.6) 11/03/16 12:20 Consult Discharge Plan - Plan Referrals: Huey Ortega MD [Non-Partnered Physician] - 11/15/16 8:40 am NONE,PCP [Primary Care Provider] -
--- NOTE | 2016-11-08 09:13 | Internal Med Progress Note ---
<Steve Murdock - Last Filed: 11/08/16 17:16> Date of Encounter: 11/08/16 Time of Encounter: 09:01 - Assessment and plan (1) NSTEMI (non-ST elevated myocardial infarction) Current Visit: Yes Status: Acute Assessment and plan: Present upon admission Had increase of Trops from 13-2.2 in 6 hrs. EKG showed anterolateral TWI with mild anterior ST depression Continue aspirin, Lipitor, isosorbide, Coreg continue Nitroglycerin prn Cardiology was consulted, the patient refused to have a cardiac the cardiac catheterization Heparin drip d/c'd after 24 hours (2) Pulmonary edema Current Visit: Yes Status: Acute Assessment and plan: present upon admission likely 2/2 to NSTEMI resolved Qualifiers: Chronicity: acute Qualified Code(s): J81.0 - Acute pulmonary edema (3) ESRD (end stage renal disease) on dialysis Current Visit: Yes Status: Chronic Assessment and plan: Chronic, Stable Continue hemodialysis Next HD tomorrow (4) Diabetes mellitus Current Visit: Yes Status: Acute Assessment and plan: Sugars have been poorly controlled Continue insulin sliding scale Started on levemir Qualifiers: Diabetes mellitus type: type 2 Diabetes mellitus complication status: with kidney complications Diabetes mellitus complication detail: with chronic kidney disease Diabetes mellitus senior care insulin use: without senior care use Chronic kidney disease stage: on chronic dialysis Qualified Code(s): E11.22 - Type 2 diabetes mellitus with diabetic chronic kidney disease; N18.6 - End stage renal disease; Z99.2 - Dependence on renal dialysis (5) Anemia in chronic kidney disease Current Visit: Yes Status: Chronic Assessment and plan: Anemia of chronic disease No evidence of bleeding Patient was transfused 2 units during dialysis on 11/03/2016. Continue to Monitor Qualifiers: Chronic kidney disease stage: on chronic dialysis Qualified Code(s): N18.6 - End stage renal disease; D63.1 - Anemia in chronic kidney disease; Z99.2 - Dependence on renal dialysis (6) Hypertension Current Visit: Yes Status: Acute Assessment and plan: Chronic, Stable Continue home meds. Qualifiers: Hypertension type: essential hypertension Qualified Code(s): I10 - Essential (primary) hypertension (7) Diastolic CHF Current Visit: Yes Status: Acute Assessment and plan: Acute pulmonary edema secondary to volume overload/acute on chronic diastolic CHF exacerbation continue Strict I's and O's, daily weights, continue dialysis, and fluid restriction Improved Qualifiers: Congestive heart failure chronicity: acute on chronic Qualified Code(s): I50.33 - Acute on chronic diastolic (congestive) heart failure (8) Pneumonia Current Visit: Yes Status: Acute Assessment and plan: Possible gram-negative pneumonia Chest x-ray shows a left retrocardiac opacity increased to cover percent bronchopneumonia or bronchitis continue Levaquin and cefepime day 4 Cultures negative thus far. Qualifiers: Pneumonia type: due to unspecified organism Laterality: left Lung location: lower lobe of lung Qualified Code(s): J18.1 - Lobar pneumonia, unspecified organism (9) Dermatological disorder Current Visit: Yes Status: Acute Assessment and plan: unclear etiology most likely medication related hemmorrhagic bullae primarily on dorsum of b/l hands, but also on face, arms and starting on leg. prednisone started, but rash continuing to spread. Rheumatology and Dermatology consulted Derm performed biopsy and culture. Can follow up results as an outpatient. - Subjective Interval history: Patient reports painful rash on hands. Rash also located on her face, arms, and beginning to appear on leg. Besides that patient has no complaints no CP, SOB, Abd Pn, N, V, D. - Constitutional Vitals: Temp Pulse Resp BP Pulse Ox 98.6 F 78 16 136/84 94 11/08/16 07:34 11/08/16 07:34 11/08/16 07:34 11/08/16 07:34 11/08/16 07:34 General appearance: Present: A&O X 3, pleasant, no acute distress - Head Head exam: Present: atraumatic, normocephalic - Eye Eye exam: Present: PERRL, conjuntiva pink, sclera anicteric Pupils: Present: PERRL - Neck Neck exam general surgery: Present: supple, trachea midline - Respiratory Respiratory exam: Present: CTAB. Absent: accessory muscle use, rales, rhonchi, wheezes - Cardiovascular Cardiovascular exam: Present: RRR, +S1, +S2, systolic murmur. Absent: diastolic murmur, gallop, rubs - GI/Abdominal GI/Abdominal exam: Present: normal bowel sounds, soft, no peritoneal signs. Absent: distended, tenderness - Extremities Exam Extremities exam: Present: warm. Absent: calf tenderness, cyanotic, pedal edema - Neurological Exam Neurological exam: Present: alert, oriented X3. Absent: facial droop, speech deficit - Skin Additional comments: Patient has purple bullae on the flexor surfaces of both hands, one bullae on thenar eminence She has smaller bullae/vesicles on her nose, around her L eye, on her forearms, and one on her left thigh. No rash on her trunk. Internal Medicine: Result - Labs CBC & Chem 7: 11/08/16 03:21 11/08/16 03:21 Labs: Short CBC 11/08/16 Range/Units 03:21 WBC 8.4 (4.3-11.1) K/mcL Hgb 8.5 L (11.5-15.4) g/dL Hct 25.8 L (35.3-44.9) % Plt Count 250 (140-400) K/mcL BMP 11/08/16 03:21 Sodium 132 L Potassium 4.8 H Chloride 93 L Carbon Dioxide 28 BUN 47 H Creatinine 5.11 H Glucose 420 H Calcium 9.1 D - ABG Interpretation ABG results: PT/INR, D-dimer PT 12.8 Seconds (9.4-12.1) H 11/03/16 03:39 Consult Discharge Plan - Plan Referrals: Huey Ortega MD [Non-Partnered Physician] - 11/15/16 8:40 am <Renaldo Forte - Last Filed: 11/08/16 18:24> Date of Encounter: 11/08/16 - Assessment and plan (1) NSTEMI (non-ST elevated myocardial infarction) Current Visit: Yes Status: Acute (2) Bullous rash Current Visit: Yes Status: Acute (3) Diabetes mellitus Current Visit: Yes Status: Acute Qualifiers: Diabetes mellitus type: type 2 Diabetes mellitus complication status: with kidney complications Diabetes mellitus complication detail: with chronic kidney disease Diabetes mellitus senior care insulin use: without senior care use Chronic kidney disease stage: on chronic dialysis Qualified Code(s): E11.22 - Type 2 diabetes mellitus with diabetic chronic kidney disease; N18.6 - End stage renal disease; Z99.2 - Dependence on renal dialysis (4) Diastolic CHF Current Visit: Yes Status: Acute Qualifiers: Congestive heart failure chronicity: acute on chronic Qualified Code(s): I50.33 - Acute on chronic diastolic (congestive) heart failure (5) Hypertension Current Visit: Yes Status: Acute Qualifiers: Hypertension type: essential hypertension Qualified Code(s): I10 - Essential (primary) hypertension (6) Anemia in chronic kidney disease Current Visit: Yes Status: Chronic Qualifiers: Chronic kidney disease stage: on chronic dialysis Qualified Code(s): N18.6 - End stage renal disease; D63.1 - Anemia in chronic kidney disease; Z99.2 - Dependence on renal dialysis - Constitutional Vitals: Temp Pulse Resp BP Pulse Ox 98.7 F 82 16 147/82 92 11/08/16 16:09 11/08/16 16:09 11/08/16 16:09 11/08/16 16:11/08/16 16:09 Internal Medicine: Result - Labs CBC & Chem 7: 11/08/16 03:21 11/08/16 03:21 Labs: Short CBC 11/08/16 Range/Units 03:21 WBC 8.4 (4.3-11.1) K/mcL Hgb 8.5 L (11.5-15.4) g/dL Hct 25.8 L (35.3-44.9) % Plt Count 250 (140-400) K/mcL BMP 11/08/16 03:21 Sodium 132 L Potassium 4.8 H Chloride 93 L Carbon Dioxide 28 BUN 47 H Creatinine 5.11 H Glucose 420 H Calcium 9.1 D - ABG Interpretation ABG results: PT/INR, D-dimer PT 12.8 Seconds (9.4-12.1) H 11/03/16 03:39 - Attending Attestation I examined this patient and my medical decision-making was reviewed with the Resident Physician on 11/08/16. I agree with the documented findings, disposition and treatment plan as described except to the extent set forth below. Ms. Giraldo is currently admitted for acute NSTEMI and rash. She remains moderate to high risk due to potential for worsening cardiac symptoms. Ms. Giraldo continues to have issues with rash. Had biopsy by derm today. Says there is some pain associated. No fever or chills. No CP or SOB. Exam alert. Comfortable Heart reg with murmur Lungs clear Abd soft Upper ext and face with violaceous bullous lesions. I/P 1. NSTEMI 2. Rash Further diagnoses and plan as above.
[2016-11-08] MEDS: *HR* HYDROcodone/Acet 5/325 mg TABLET PO PRN ×2 (10:24→19:13)
--- NOTE | 2016-11-08 11:08 | Dermatology Consult Note ---
Date of Encounter: 11/08/16 Time of Encounter: 11:06 History of Present Illness Reason for Consult: Rash History of Present Illness: Crystal Giraldo is a 65 year old female admitted for pneumonia with history of kidney disease. On day 4 of her hospital admission she and caretakers noted a rash starting on her right hand. It has since spread to her left hand, forearms bilaterally, nose, face and left thigh. She has mild to moderate tenderness to touch. She notices blisters. She denies itch. She has been treated with steroids with little change. She denies ever having a rash or problem with her skin before. SHe was started on rupa and levaquin in the hospital. She denies fever and chills. Review of Systems Additional Comments: General/Constitutional: Patient denies fevers, chills, no recent unintended weight loss, night sweats, no change in appetite or malaise.. Hematology: Patient denies new or enlarging lumps or bumps.. Skin: Patient denies new or changing moles, or rash other than what is mentioned above.. General/Constitutional: Patient denies fevers, chills, nor recent unintended weight loss, night sweats, no change in appetite or malaise. Hematologic: Patient denies new or enlarging lumps or bumps. Skin: Patient denies new or changing moles, or rash other than what is mentioned above. Past Med Surg Social Fam HX - Past Medical History Medical history: CHF, diabetes, hyperlipidemia, hypertension, renal disease, valvular heart disease, other Psychiatric history: no psych history - Past Surgical History Surgical History: cholecystectomy, hysterectomy - Social History Smoking Status: Never smoker Smokeless Tobacco Status: No Alcohol use: none Drug use: none Medications and Allergies Aspirin [Lo-Dose Aspirin EC] 81 mg PO DAILY 11/02/16 [History] Carvedilol [Coreg] 12.5 mg BID 11/02/16 [History] Cholecalciferol (D-3) [Vitamin D] 2,000 unit PO DAILY 11/02/16 [History] Insulin Glargine [Lantus] 15 - 40 unit SQ QPM 11/02/16 [History] Insulin LISPRO [HumaLOG] 1 - 8 unit SQ TID PRN 11/02/16 [History] Isosorbide MONOnitrate (24 HR) [Imdur] 30 mg PO DAILY 11/02/16 [History] amLODIPine [Norvasc] 10 mg PO DAILY 11/02/16 [History] Clopidogrel [Plavix] 75 mg PO DAILY 11/03/16 [History] Hydralazine HCl [Hydralazine HCl] 50 mg PO TID 11/03/16 [History] Lidocaine/Prilocaine CREAM [Emla] 1 appl TP AD PRN 11/03/16 [History] 3 Allergy/AdvReac Type Severity Reaction Status Date / Time Erythromycin Base Allergy Intermediate Itching Verified 06/02/15 14:32 faloxitine Allergy Hives Uncoded 08/27/16 08:47 Examination Vital Signs: Temp Pulse Resp BP Pulse Ox 98.6 F 78 16 136/84 94 11/08/16 07:34 11/08/16 07:34 11/08/16 07:34 11/08/16 07:34 11/08/16 07:34 , The patient appears alert, oriented X 3, in no acute distress, healthy- appearing, normal mood.A detailed skin examination of sites including; scalp, head, neck, face, conjunctiva, lids, lips, back, chest/breast/axilla, abdomen, bilateral upper extremities including hands/digits/ fingernails, bilateral lower extremities including feet,/digits/toenails, anus, genital/groin/ buttock , was completed and found to be normal except: -- hemorrhagic vesicles and bullae on dorsal fingers, hands bilaterally, left palmar fingertip, right ventral forearm, distal nose, eyelids bilaterally, ears bilaterally, left anterior thigh no conjunctival injection, no mucosal involvement General Examination: The patient appears alert, oriented X3, in no acute distress, healthy-appearing , normal mood. A detailed skin examination of sites including: scalp, head, neck , face, conjunctive, lids, lips, back, chest/breast/axilla, abdomen, bilateral upper extremities including hands/digits/fingernails, bilateral lower extremities including feet/digits/toenails, genital/groin/buttock, lymph nodes, was completed and found to be normal except: - Assessment and Plan (1) Rash and nonspecific skin eruption Current Visit: Yes Status: Acute Hemmorrhagic bullae --- A biopsy was taken for hematoxylin and eosin to rule out medication reaction vs amyloidosis vs vasculitis vs vasculopathy as well as for Direct immunofluorescence to diganose autoimmune blistering disorders such as bullous pemphigoid, porphyria cutanea tarda -- viral and bacterial cultures were taken, although infectious etiology less suspected due to symmetric distribution of eruption -Further treatment pending biopsy results Procedure: Dermatology Date of procedure: 11/08/16 Procedure: Shave biopsy(s) of the lesion(s) noted above to establish and confirm diagnosis. The procedure, risks, benefits, alternatives and expected outcomes were discussed with the patient and consent was obtained. Time out called. Patient identified, procedure verified, site(s) identified and verified. Patient and staff present in agreement. Area(s) prepped with alcohol and anesthetized with 01.0% lidocaine with epinephrine at 1:100,000 concentration. 1ml of lidocaine with epinephrine were injected 6mm pearly papule on A) Right ventral forear for H and E and B) Right ventral forearm perilesional rule out autoimmune blistering disorder. Biopsy(s) of lesion performed. 20% AlCl and bandaging applied. Specimen(s) sent to pathology. Patient instructed in routine post-op care and wound care handout given. Consult Discharge Plan - Plan Referrals: Huey Ortega MD [Non-Partnered Physician] - 11/15/16 8:40 am NONE,PCP [Primary Care Provider] -
[2016-11-08] MEDS ORDERED: Insulin DETEMIR 100 UNIT/ML X5UNITS SQ ONE (11:55)
[2016-11-08 15:18] LABS: HSV Source RIGHT INDEX FIN
[2016-11-08] MEDS: Cefepime HCl 500 MG in D5% in Water 100 ML IVPB SCH (16:06)
[2016-11-08] MEDS ORDERED: 0.9 % Sodium Chloride 1,000 ML ONE (21:44)
[2016-11-08] MEDS ORDERED: 0.9 % Sodium Chloride 1,000 ML IVC SCH (21:45)
[2016-11-08] MEDS ORDERED: Insulin LISPRO 300 UNITS/3 ML VIAL SQ SCH (22:10)
[2016-11-09 04:33] LABS: Basophils % 0.3 %; Hematocrit 24.8 % (35.3-44.9); Immature Granulocytes % 4.5 % (0-4); Lymphocytes # 0.8 K/mcL (0.6-4.6); Lymphocytes % 7.8 %; Mean Corpuscular HGB Conc 32.3 g/dL (31.6-35.5); Mean Corpuscular Hemoglobin 27.3 pg (28.0-33.3); Mean Corpuscular Volume 84.6 fL (83.0-100.0); Mean Platelet Volume 10.3 fL (9.4-12.4); Monocytes # 0.9 K/mcL (0.0-1.3); Monocytes % 8.8 %; Neutrophils # 7.8 K/mcL (1.6-8.9); Platelet Count 242 K/mcL (140-400); Red Blood Count 2.93 M/mcL (3.82-4.97); Red Cell Distribution Width 14.6 % (11.5-14.5); Segmented Neutrophils % 78.6 %
[2016-11-09 04:49] LABS: Calcium 8.3 mg/dL (8.6-10.8)
[2016-11-09] MEDS: Aspirin Enteric Coated 81 MG Tablet PO SCH (07:57)
[2016-11-09] MEDS: *HR* HYDROcodone/Acet 5/325 mg TABLET PO PRN (07:57)
[2016-11-09] MEDS: predniSONE 20 MG TABLET PO SCH (07:57)
[2016-11-09] MEDS: hydrALAZINE 25 MG TABLET PO SCH ×2 (07:58→14:18)
[2016-11-09] MEDS: Insulin DETEMIR 100 UNIT/ML X5UNITS SQ SCH (08:00)
[2016-11-09] MEDS: Isosorbide MONOnitrate (24 HR) 30 MG TAB.ER.24H PO SCH (08:01)
[2016-11-09] MEDS ORDERED: 0.9 % Sodium Chloride 250 ML IVC PRN (08:01)
[2016-11-09] MEDS: Insulin LISPRO 300 UNITS/3 ML VIAL SQ SCH ×3 (08:02→14:17)
[2016-11-09 08:21] LABS: HSV 2 DNA Not Detected (Not Detect)
[2016-11-09] MEDS ORDERED: *HR* HYDROcodone/Acet 5/325 mg TABLET PO PRN (09:10)
[2016-11-09] MEDS ORDERED: Insulin DETEMIR 100 UNIT/ML X5UNITS SQ SCH (09:21)
--- NOTE | 2016-11-09 09:37 | Nephrology Progress Note ---
Date of Encounter: 11/09/16 Time of Encounter: 09:37 - Assessment and Plan (1) ESRD (end stage renal disease) on dialysis Status: Chronic HD today. Rash on hands, nose, left periorbital skin s/p derm and rheum consults and skin bx. Pending histo Appreciate the hospitalists. I called the [facility] to update them on the pt's status. (2) Anemia in chronic kidney disease Status: Chronic Goal Hgb is 10-11 in the setting of CKD. Qualifiers: Chronic kidney disease stage: on chronic dialysis Qualified Code(s): N18.6 - End stage renal disease; D63.1 - Anemia in chronic kidney disease; Z99.2 - Dependence on renal dialysis (3) Dyspnea Status: Acute Appreciate the hospitalists. Qualifiers: Dyspnea type: shortness of breath Qualified Code(s): R06.02 - Shortness of breath; R06.00 - Dyspnea, unspecified; R06.01 - Orthopnea (4) Hyperkalemia Status: Acute controlled (5) Hyponatremia Status: Acute Improved Subjective Principal diagnosis: ESRD, PNA Interval history: Pt was s/e earlier today. She did not affirm N/V/D but did report having a painful rash on her hands, face and torso. Objective - Vital Signs Vital signs: Vital Signs Temp Pulse Resp BP Pulse Ox 11/09/16 06:53 97.8 F 76 19 158/83 96 11/09/16 03:45 97.6 F 77 17 144/67 92 11/09/16 00:20 97.9 F 80 17 131/64 95 11/08/16 19:31 98.2 F 93 17 130/62 93 11/08/16 16:09 98.7 F 82 16 147/82 92 11/08/16 11:13 97.7 F 75 16 129/70 94 Intake and Output 11/08/16 11/09/16 11/09/16 23:59 07:59 15:59 Intake Total 0 / 0 300 / 300 Balance 0 / 0 300 / 300 Intake: Oral 0 / 0 300 / 300 Other: Meal Breakfast Percent of Meal Consumed 100% Weight 70.9 kg Blood Glucose* [phone] Patient Weight 11/09/16 23:59 Weight 70.9 kg - General Appearance Exam: General appearance: Present: well-developed, well-nourished, appears started age EENT: Present: ATNC, PERRL Neck: Present: supple Respiratory: Present: course breath sounds Cardiology: Present: no edema, normal S1, normal S2 Dialysis Vascular Access: Arteriovenous Fistula thrill: Yes bruit: Yes Gastrointestinal: Present: normoactive bowel sounds, no guarding Integumentary: Present: rash Neurologic: Present: no focal deficit, no asterixis, alert and oriented x3 Musculoskeletal: Present: no erythema, no cyanosis Psychiatric: Present: mood/affect appropriate, cooperative - Lab 11/09/16 03:48 11/09/16 03:48 Most recent lab results Calcium 8.3 mg/dL (8.6-10.8) L 11/09/16 03:48 Phosphorus 2.4 mg/dL (2.3-4.7) 11/03/16 00:47 Magnesium 2.2 mg/dL (1.6-2.6) 11/03/16 12:20 Consult Discharge Plan - Plan Instructions: Chronic Hypertension (DC), Anemia (GEN), Pneumonia (DC) Additional Instructions: Please follow up with up wiht your primary care provider within 1 week of discharge. Please Follow up with Dermatology as scheduled. Please resume all your home medications except for atorvastatin. Please discuss restarting your atorvastatin with your primary care provider please return to the hospital if you experience new or worsening symptoms. Referrals: Huey Ortega MD [Non-Partnered Physician] - 11/15/16 8:40 am Kristi Rock MD [Partnered Physician] - 11/14/16 9:20 am (Please follow up as schedule...) Prescriptions: Acetaminophen [Tylenol] 650 mg PO Q6HR PRN #120 tab PRN Reason: Mild Pain (1-3) HYDROcodone/Acet 5/325 mg [[place] 5-325 mg] 1 tab PO Q6HR PRN #120 tab PRN Reason: Moderate to Severe Pain (4-10)
[2016-11-09] MEDS ORDERED: 0.9 % Sodium Chloride 1,000 ML ONE (10:04)
--- NOTE | 2016-11-09 10:06 | Discharge Summary ---
<Steve Murdock - Last Filed: 11/09/16 17:00> Date of Encounter: 11/09/16 Time of Encounter: 08:45 - Discharge Diagnosis (1) NSTEMI (non-ST elevated myocardial infarction) Priority: Primary Status: Acute (2) Pulmonary edema Priority: Secondary Status: Acute Qualifiers: Chronicity: acute Qualified Code(s): J81.0 - Acute pulmonary edema (3) ESRD (end stage renal disease) on dialysis Priority: Secondary Status: Chronic (4) Diabetes mellitus Priority: Secondary Status: Chronic Qualifiers: Diabetes mellitus type: type 2 Diabetes mellitus complication status: with kidney complications Diabetes mellitus complication detail: with chronic kidney disease Diabetes mellitus buttermaker helper insulin use: without retirement use Chronic kidney disease stage: on chronic dialysis Qualified Code(s): E11.22 - Type 2 diabetes mellitus with diabetic chronic kidney disease; N18.6 - End stage renal disease; Z99.2 - Dependence on renal dialysis (5) Anemia in chronic kidney disease Priority: Secondary Status: Chronic Qualifiers: Chronic kidney disease stage: on chronic dialysis Qualified Code(s): N18.6 - End stage renal disease; D63.1 - Anemia in chronic kidney disease; Z99.2 - Dependence on renal dialysis (6) Hypertension Priority: Secondary Status: Chronic Qualifiers: Hypertension type: essential hypertension Qualified Code(s): I10 - Essential (primary) hypertension (7) Diastolic CHF Priority: Secondary Status: Chronic Qualifiers: Congestive heart failure chronicity: acute on chronic Qualified Code(s): I50.33 - Acute on chronic diastolic (congestive) heart failure (8) Pneumonia Priority: Secondary Status: Acute Qualifiers: Pneumonia type: due to unspecified organism Laterality: left Lung location: lower lobe of lung Qualified Code(s): J18.1 - Lobar pneumonia, unspecified organism (9) Dermatological disorder Priority: Secondary Status: Acute - Discharge Medications Prescriptions: Acetaminophen [Tylenol] 650 mg PO Q6HR PRN #120 tab PRN Reason: Mild Pain (1-3) HYDROcodone/Acet 5/325 mg [Lester 5-325 mg] 1 tab PO Q6HR PRN #120 tab PRN Reason: Moderate to Severe Pain (4-10) Home Medications: Aspirin [Lo-Dose Aspirin EC] 81 mg PO DAILY 11/02/16 [History] Carvedilol [Coreg] 12.5 mg BID 11/02/16 [History] Cholecalciferol (D-3) [Vitamin D] 2,000 unit PO DAILY 11/02/16 [History] Insulin Glargine [Lantus] 15 - 40 unit SQ QPM 11/02/16 [History] Insulin LISPRO [HumaLOG] 1 - 8 unit SQ TID PRN 11/02/16 [History] Isosorbide MONOnitrate (24 HR) [Imdur] 30 mg PO DAILY 11/02/16 [History] amLODIPine [Norvasc] 10 mg PO DAILY 11/02/16 [History] Clopidogrel [Plavix] 75 mg PO DAILY 11/03/16 [History] Lidocaine/Prilocaine CREAM [Emla] 1 appl TP AD PRN 11/03/16 [History] Acetaminophen [Tylenol] 650 mg PO Q6HR PRN #120 tab 11/09/16 [Rx] HYDROcodone/Acet 5/325 mg [Lester 5-325 mg] 1 tab PO Q6HR PRN #120 tab 11/09/16 [ Rx] hydrALAZINE [HydrALAZINE] 100 mg PO TID tab 11/09/16 [Rx] Allergies/Adverse Reactions: 3 Allergy/AdvReac Type Severity Reaction Status Date / Time Erythromycin Base Allergy Intermediate Itching Verified 06/02/15 14:32 faloxitine Allergy Hives Uncoded 08/27/16 08:47 Procedures/tests Complete & Pending: Echo: Impressions: LVEF 60-65%. Normal left ventricular size and systolic function. There is evidence of moderate diastolic dysfunction of the left ventricle. Normal right ventricular size and function. Mild mitral regurgitation. No pulmonary hypertension. CXR: FINDINGS: Increased central opacity is noted, especially the retrocardiac region. No pneumothorax is found. The heart size is stable. No free air. XR/XR chest 1V IMPRESSION: Increased central opacity, especially in the left retrocardiac region. This is suggestive of broncho pneumonia or bronchitis. Date of admission: 11/02/16 23:19 Primary care physician: PCP NONE Consults: 11/02/16 23:47 Consult to Pastoral Services [CONS] Routine Comment: 11/03/16 02:42 Consult to Cardiology [CONS] Routine Comment: Consulting Provider: Cardiology Nikkie Reason for Consult: NSTEMI Call Completed: Yes 11/03/16 02:49 Consult to Nephrology [CONS] Routine Consulting Provider: Kidney Nikkie/LUIS MIGUEL/DEEPA/SEBAS Reason for Consult: ESRD-on HD, received IV contrast on 11/02, also NSTEMI Call Completed: No 11/03/16 13:45 Consult to Dialysis [CONS] ONCE 11/04/16 07:30 Consult to Dialysis [CONS] ONCE 11/05/16 14:16 Consult to Invasive Line Access Team [CONS] Routine Reason for Consult: Limited Access Line Type: EPIV 11/07/16 07:00 Consult to Dialysis [CONS] ONCE 11/07/16 09:34 Consult to Dermatology [CONS] Routine Consulting Provider: Dermatology Nikkie Reason for Consult: pulplish dermic lesions Call Completed: No 11/08/16 09:17 Consult to Physician [CONS] Routine Consulting Provider: Lai Mcpherson Reason for Consult: new onset of Bullous rash Call Completed: Yes 11/09/16 08:15 Consult to Dialysis [CONS] ONCE Discharging clinician: Steve Murdock Anticipated date of discharge: 11/09/16 - Patient Status Disposition: Home Health Service Condition: Fair Functional capacity at discharge: uses cane/walker Overall status at discharge: patient is progressing back to baseline - Discharge Instructions Instructions: Chronic Hypertension (DC), Anemia (GEN), Pneumonia (DC) Follow Up With: Huey Ortega MD [Non-Partnered Physician] - 11/15/16 8:40 am Kristi Rock MD [Partnered Physician] - 11/14/16 9:20 am (Please follow up as schedule...) Additional Instructions: Please follow up with up wiht your primary care provider within 1 week of discharge. Please Follow up with Dermatology as scheduled. Please resume all your home medications except for atorvastatin. Please discuss restarting your atorvastatin with your primary care provider please return to the hospital if you experience new or worsening symptoms. - Diet and Activity Activity: resume usual activities as tolerated Diet: advance to your usual diet Hospital course: Ms. Giraldo is a 65 year old female c PMHx of CHF, coronary artery disease, diabetes, hyperlipidemia, hypertension, ESRD on dialysis MWF, valvular heart disease who presented to an outside hospital with Dyspnea, cough and hemoptysis. She was found to have an elevated trop of 1.3 hypoxia of 76%, and K of 2.6 so she was transferred to [facility]. Troponin increased from 1.3 to 2.2 in 6 hours. Her EKG showed anterolateral TWI with mild anterior ST depression. She had a CT chest which showed Ground glass opacities likely pulmonary edema in the setting of NSTEMI. Patient refuse a cardiac cath so was managed medically with heparin gtt. Patient was continued on her normal MWF dialysis schedule. Her electrolytes were repleted. She was also treated for pneumonia in the hospital with vanc and zosyn originally then transitioned to Levaquin and cefepime. patient developed a bullous rash on her hands that spread to her face , upper arms, and left thigh. She was started on prednisone. Her atorvastatin was held. Consideration to stopping hydralazine was given, but since this was a home med that the patient has been on for over a year it was continued. Her Abx were stopped since she completed her course and the concern one of them could be the cause of her rash. Rheumatology and Dermatology were consulted. Demratology cultured one bulla and performed a punch biopsy of another. They will perform testing to determine cause of the rash and follow up with the patient as an out patient. Prednisone was stopped since there did not appear to be improvement on the med and it was causing her sugars to be poorly controlled. She was sent home with medication for pain for the rash and her normal home medical regimen. - Time Spent with Patient Total time spent providing and/or coordinating discharge services: 40 minutes - Constitutional Vitals: Temp Pulse Resp BP Pulse Ox 97.8 F 76 19 158/83 96 11/09/16 06:53 11/09/16 06:53 11/09/16 06:53 11/09/16 06:53 11/09/16 06:53 General appearance: Present: A&O X 3, pleasant, no acute distress - Head Head exam: Present: atraumatic, normocephalic - Eye Eye exam: Present: PERRL, conjuntiva pink, sclera anicteric Pupils: Present: PERRL - Neck Neck exam general surgery: Present: supple, trachea midline - Respiratory Respiratory exam: Present: CTAB. Absent: accessory muscle use, rales, rhonchi, wheezes - Cardiovascular Cardiovascular exam: Present: RRR, +S1, +S2, systolic murmur. Absent: diastolic murmur, gallop, rubs - GI/Abdominal GI/Abdominal exam: Present: normal bowel sounds, soft, no peritoneal signs. Absent: distended, tenderness - Extremities Exam Extremities exam: Present: warm. Absent: calf tenderness, cyanotic, pedal edema - Neurological Exam Neurological exam: Present: alert, oriented X3. Absent: facial droop, speech deficit - Psychiatric Psychiatric exam: Present: normal affect, normal mood - Skin Additional comments: Patient has purple bullae on the flexor surfaces of both hands, one bullae on thenar eminence She has smaller bullae/vesicles on her nose, around her L eye, on her forearms, and one on her left thigh. No rash on her trunk. <Renaldo Forte - Last Filed: 11/09/16 18:03> Date of Encounter: 11/09/16 - Discharge Diagnosis (1) NSTEMI (non-ST elevated myocardial infarction) Status: Acute (2) Bullous rash Priority: Secondary Status: Acute (3) Diabetes mellitus Status: Chronic Qualifiers: Diabetes mellitus type: type 2 Diabetes mellitus complication status: with kidney complications Diabetes mellitus complication detail: with chronic kidney disease Diabetes mellitus retirement insulin use: without retirement use Chronic kidney disease stage: on chronic dialysis Qualified Code(s): E11.22 - Type 2 diabetes mellitus with diabetic chronic kidney disease; N18.6 - End stage renal disease; Z99.2 - Dependence on renal dialysis (4) Diastolic CHF Status: Chronic Qualifiers: Congestive heart failure chronicity: acute on chronic Qualified Code(s): I50.33 - Acute on chronic diastolic (congestive) heart failure (5) Hypertension Status: Chronic Qualifiers: Hypertension type: essential hypertension Qualified Code(s): I10 - Essential (primary) hypertension (6) Anemia in chronic kidney disease Status: Chronic Qualifiers: Chronic kidney disease stage: on chronic dialysis Qualified Code(s): N18.6 - End stage renal disease; D63.1 - Anemia in chronic kidney disease; Z99.2 - Dependence on renal dialysis Date of admission: 11/02/16 23:19 Primary care physician: PCP NONE Consults: 11/02/16 23:47 Consult to Pastoral Services [CONS] Routine Comment: 11/03/16 02:42 Consult to Cardiology [CONS] Routine Comment: Consulting Provider: Cardiology Nikkie Reason for Consult: NSTEMI Call Completed: Yes 11/03/16 02:49 Consult to Nephrology [CONS] Routine Consulting Provider: Kidney Nikkie/LUIS MIGUEL/DEEPA/SEBAS Reason for Consult: ESRD-on HD, received IV contrast on 11/02, also NSTEMI Call Completed: No 11/03/16 13:45 Consult to Dialysis [CONS] ONCE 11/04/16 07:30 Consult to Dialysis [CONS] ONCE 11/05/16 14:16 Consult to Invasive Line Access Team [CONS] Routine Reason for Consult: Limited Access Line Type: EPIV 11/07/16 07:00 Consult to Dialysis [CONS] ONCE 11/07/16 09:34 Consult to Dermatology [CONS] Routine Consulting Provider: Dermatology Nikkie Reason for Consult: pulplish dermic lesions Call Completed: No 11/08/16 09:17 Consult to Physician [CONS] Routine Consulting Provider: Lai Mcpherson Reason for Consult: new onset of Bullous rash Call Completed: Yes 11/09/16 08:15 Consult to Dialysis [CONS] ONCE Hospital course: Ms. Giraldo is a 65 year old female - Time Spent with Patient Total time spent providing and/or coordinating discharge services: 38min - Constitutional Vitals: Temp Pulse Resp BP Pulse Ox 98.1 F 76 18 130/56 96 11/09/16 14:00 11/09/16 06:53 11/09/16 14:00 11/09/16 14:00 11/09/16 06:53 - Attending Attestation I examined this patient and my medical decision-making was reviewed with the Resident Physician on 11/09/16. I agree with the documented findings, disposition and treatment plan as described except to the extent set forth below. Ms. Giraldo has been admitted for acute NSTEMI. She is now afebrile and vitals stable. Rash has not significantly worsened. She is ready for discharge home with outpatient follow up. Ms. Giraldo feels OK. No CP. She has been afebrile with stable vitals. She is ready for discharge home. Exam Alert. Comfortable Heart reg with murmur Lungs diminished Rash about the same Abd soft Plan D/C home today Follow up with PCP and derm.
[2016-11-09] MEDS ORDERED: Insulin LISPRO 300 UNITS/3 ML VIAL SQ SCH (12:00)
[2016-11-09] MEDS ORDERED: levoFLOXacin 500 MG TABLET PO SCH (13:00)
[2016-11-09 15:38] VITALS: BP 130/56
--- NOTE | 2016-11-09 15:47 | Physician Discharge Referral ---
Home Health/Hosp Referral Info Transfer to: Home Health Provider in Charge Post Discharge: PCP - Diagnosis (1) NSTEMI (non-ST elevated myocardial infarction) Priority: Primary Status: Acute (2) Pulmonary edema Priority: Secondary Status: Acute (3) ESRD (end stage renal disease) on dialysis Priority: Secondary Status: Chronic (4) Diabetes mellitus Priority: Secondary Status: Chronic (5) Anemia in chronic kidney disease Priority: Secondary Status: Chronic (6) Hypertension Priority: Secondary Status: Chronic (7) Diastolic CHF Priority: Secondary Status: Chronic (8) Pneumonia Priority: Secondary Status: Acute (9) Dermatological disorder Priority: Secondary Status: Acute - Respiratory Orders Smoking Cessation: Smoking cessation has been advised. For more information, call the [employer] Tobacco Quit Line at 1-414-NPLA-NOW. - Diet/Nutrition Diet/Nutrition Orders: Renal - Activity Activity Orders: Walker - Services Needed Following services are medically necessary services: Home Health Aide - Transfer Medications Prescriptions: Acetaminophen [Tylenol] 650 mg PO Q6HR PRN #120 tab PRN Reason: Mild Pain (1-3) HYDROcodone/Acet 5/325 mg [Mason 5-325 mg] 1 tab PO Q6HR PRN #120 tab PRN Reason: Moderate to Severe Pain (4-10) Home Medications: Aspirin [Lo-Dose Aspirin EC] 81 mg PO DAILY 11/02/16 [History] Carvedilol [Coreg] 12.5 mg BID 11/02/16 [History] Cholecalciferol (D-3) [Vitamin D] 2,000 unit PO DAILY 11/02/16 [History] Insulin Glargine [Lantus] 15 - 40 unit SQ QPM 11/02/16 [History] Insulin LISPRO [HumaLOG] 1 - 8 unit SQ TID PRN 11/02/16 [History] Isosorbide MONOnitrate (24 HR) [Imdur] 30 mg PO DAILY 11/02/16 [History] amLODIPine [Norvasc] 10 mg PO DAILY 11/02/16 [History] Clopidogrel [Plavix] 75 mg PO DAILY 11/03/16 [History] Lidocaine/Prilocaine CREAM [Emla] 1 appl TP AD PRN 11/03/16 [History] Acetaminophen [Tylenol] 650 mg PO Q6HR PRN #120 tab 11/09/16 [Rx] HYDROcodone/Acet 5/325 mg [Mason 5-325 mg] 1 tab PO Q6HR PRN #120 tab 11/09/16 [ Rx] hydrALAZINE [HydrALAZINE] 100 mg PO TID tab 11/09/16 [Rx] Allergies/Adverse Reactions: 3 Allergy/AdvReac Type Severity Reaction Status Date / Time Erythromycin Base Allergy Intermediate Itching Verified 06/02/15 14:32 faloxitine Allergy Hives Uncoded 08/27/16 08:47 Certification: Further, I certify that my clinical findings support that this patient is homebound (i.e. absences from home require considerable and taxing effort and are for medical reasons or oriental orthodox services or infrequently or short duration when for other reasons) because: Homebound Reason: Patient requires assistance of a person or device to safely leave home, Leaving home requires considerable and taxing effort due to condition Attestation: My signature below is to certify that this patient is under my care and that I, or nurse practitioner, or a physician's blood bank assistant working with me, has a face-to -face encounter with this patient.
[2016-11-10 07:48] LABS: ANA IgG by ELISA DETECTED (None Detected); Myeloperoxidase Ab 285 AU/mL (0-19); Serine Protease-3 Antibody 31 AU/mL (0-19)
== END 2016-11-09 16:01 | disposition home health service (06) | DRG 280 ==
LOC: 2NNU → SUATTDRO 23:19 → 3ANU 11-06 19:13 → 2ANU 11-06 20:56
PROVIDERS: ADMIT Internal Medicine; ATTEND Internal Medicine

== ENCOUNTER 2017-06-17 13:19 | Inpatient (IN) ==
[~2017-06-17 13:19] MED LIST: *HR* LORazepam 2 MG/ML VIAL IVP ONE; *HR* Midazolam HCl 2 MG/2 ML VIAL IV ONE
[2017-06-17 14:22] LABS: Basophils % 0.5 %; Eosinophils % 0.8 %; Hematocrit 30.8 % (35.3-44.9); Hemoglobin 10.2 g/dL (11.5-15.4); Immature Granulocytes % 0.5 % (0-4); Lymphocytes # 0.6 K/mcL (0.6-4.6); Lymphocytes % 15.9 %; Mean Corpuscular HGB Conc 33.1 g/dL (31.6-35.5); Mean Corpuscular Hemoglobin 28.6 pg (28.0-33.3); Mean Corpuscular Volume 86.3 fL (83.0-100.0); Mean Platelet Volume 10.9 fL (9.4-12.4); Monocytes # 0.3 K/mcL (0.0-1.3); Monocytes % 8.1 %; Neutrophils # 2.8 K/mcL (1.6-8.9); Platelet Count 179 K/mcL (140-400); Red Blood Count 3.57 M/mcL (3.82-4.97); Red Cell Distribution Width 14.2 % (11.5-14.5); Segmented Neutrophils % 74.2 %
[2017-06-17 14:37] LABS: BUN/Creatinine Ratio 6 (6-26); Blood Urea Nitrogen 26 mg/dL (8-23); Calcium 8.4 mg/dL (8.6-10.3); Carbon Dioxide 30 mEq/L (23-29); Chloride 94 mEq/L (98-107); Glucose 612 mg/dL (70-105); Osmolality,Calculated 307 (280-300); Potassium 3.7 mEq/L (3.5-5.1); Sodium 132 mEq/L (136-145); Troponin I < 0.03 ng/mL (< 0.04); eGFR For African Americans 12 (> 60); eGFR For Non-African Americans 10 (> 60)
[2017-06-17] MEDS ORDERED: 0.9 % Sodium Chloride 1,000 ML IVC ONE (15:16)
[2017-06-17] MEDS ORDERED: Insulin Regular, Human 100 UNIT/ML IV SCH (15:30)
[2017-06-17] MEDS ORDERED: *HR* Metoprolol 5 MG/5 ML VIAL IVP ONE (15:31)
[2017-06-17 15:53] LABS: VBG HCO3 29 mEq/L (21-27); VBG PCO2 46 mmHg (41-51); VBG PO2 45 mmHg (25-50)
[2017-06-17] MEDS ORDERED: Norepinephrine 4 MG in D5% in Water 250 ML IVC SCH (17:15)
--- NOTE | 2017-06-17 17:33 | Emergency Department Note ---
Disposition Clinical Impression: Hyperglycemia Hypertension Qualifiers: Hypertension type: unspecified Qualified Code(s): I10 - Essential (primary) hypertension Disposition: Admitted As Inpatient Referrals: Huey Ortega MD [Primary Care Provider] - General Adult HPI - General Chief complaint: ED Neuro Symptoms/Deficit Stated complaint: neuro symptoms x 1 week Time Seen by Provider: 06/17/17 13:25 Source: patient, other Limitations: no limitations - History of Present Illness Pain Scale: 0 - Related Data Home Medications Medication Instructions Recorded Confirmed Aspirin [Lo-Dose Aspirin EC] 81 mg PO DAILY 11/02/16 06/17/17 Carvedilol [Coreg] 12.5 mg BID 11/02/16 06/17/17 Cholecalciferol (D-3) [Vitamin D] 2,000 unit PO DAILY 11/02/16 06/17/17 Insulin Glargine [Lantus] 45 - 50 unit SQ QPM 11/02/16 06/17/17 Insulin LISPRO [HumaLOG] 1 - 8 unit SQ TID PRN 11/02/16 06/17/17 Isosorbide MONOnitrate (24 HR) 30 mg PO DAILY 11/02/16 06/17/17 [Imdur] amLODIPine [Norvasc] 10 mg PO DAILY 11/02/16 06/17/17 Clopidogrel [Plavix] 75 mg PO DAILY 11/03/16 06/17/17 Lidocaine/Prilocaine CREAM [Emla] 1 appl TP AD PRN 11/03/16 06/17/17 Phosphorus #1 [K-Phos Neutral 250 mg PO DAILY 05/25/17 06/17/17 Tablet] Atorvastatin [Lipitor] 40 mg PO QPM 06/17/17 06/17/17 Latanoprost [Xalatan] 1 drop RIGHT EYE HS 06/17/17 06/17/17 Previous Rx's Medication Instructions Recorded Acetaminophen [Tylenol] 650 mg PO Q6HR PRN #120 tab 11/09/16 cloNIDine HCl [CloNIDine HCl] 0.3 mg PO TID #90 tablet 05/28/17 Allergies Allergy/AdvReac Type Severity Reaction Status Date / Time Erythromycin Base Allergy Intermediate Itching Verified 05/25/17 09:51 fluoxetine Allergy Hives Verified 05/25/17 12:21 Hydralazine Allergy Hives Verified 05/25/17 09:51 Past Medical History - Past Medical History Medical history: Reports: CHF, diabetes, dialysis, hyperlipidemia, hypertension , renal disease, valvular heart disease Surgical history: Reports: cholecystectomy, hysterectomy Psychiatric history: Reports: no psych history - Social History Smoking Status: Never smoker Smokeless Tobacco Status: No Alcohol use: Reports: none Drug use: Reports: none Physical Exam - General Limitations: no limitations General appearance: alert, in no apparent distress Course Vital Signs Temperature 98.8 F 06/17/17 13:20 Pulse Rate 70 06/17/17 13:20 Respiratory Rate 16 06/17/17 13:20 Blood Pressure 206/96 06/17/17 13:20 O2 Sat by Pulse Oximetry 97 06/17/17 13:20 Temperature 98.8 F 06/17/17 13:20 Pulse Rate 68 06/17/17 16:48 Respiratory Rate 18 06/17/17 16:48 Blood Pressure 167/66 06/17/17 16:48 O2 Sat by Pulse Oximetry 96 06/17/17 16:48 Oxygen Delivery Oxygen Delivery Room Air Medical Decision Making - Lab Data Result diagrams: 06/17/17 13:54 06/17/17 13:54 Lab Results 06/17/17 06/17/17 06/17/17 Range/Units 13:54 13:54 15:37 WBC 3.8 L (4.3-11.1) K/mcL RBC 3.57 L (3.82-4.97) M/mcL Hgb 10.2 L (11.5-15.4) g/dL Hct 30.8 L (35.3-44.9) % MCV 86.3 (83.0-100.0) fL MCH 28.6 (28.0-33.3) pg MCHC 33.1 (31.6-35.5) g/dL RDW 14.2 (11.5-14.5) % Plt Count 179 (140-400) K/mcL MPV 10.9 (9.4-12.4) fL Immature Gran % 0.5 (0-4) % Seg Neutrophils % 74.2 % Lymphocytes % 15.9 % Monocytes % 8.1 % Eosinophils % 0.8 % Basophils % 0.5 % Neutrophils # 2.8 (1.6-8.9) K/mcL Lymphocytes # 0.6 (0.6-4.6) K/mcL Monocytes # 0.3 (0.0-1.3) K/mcL Eosinophils # 0.0 (0.0-0.6) K/mcL Basophils # 0.0 (0.0-0.2) K/mcL VBG pH (7.32-7.42) pH Units VBG pCO2 (41-51) mmHg VBG pO2 (25-50) mmHg VBG HCO3 (21-27) mEq/L Sodium 132 L (136-145) mEq/L Potassium 3.7 (3.5-5.1) mEq/L Chloride 94 L (98-107) mEq/L Carbon Dioxide 30 H (23-29) mEq/L BUN 26 H (8-23) mg/dL Creatinine 4.54 H (0.60-1.20) mg/dL Est GFR ( Amer) 12 L (> 60) Est GFR (Non-Af Amer) 10 L (> 60) BUN/Creatinine Ratio 6 (6-26) Glucose 612 H* (70-105) mg/dL Calculated Osmolality 307 H (280-300) Calcium 8.4 L (8.6-10.3) mg/dL Magnesium (1.6-2.6) mg/dL Troponin I < 0.03 (< 0.04) ng/mL Beta-Hydroxybutyric Acd 0.27 (0.02-0.27) mmol/L 06/17/17 06/17/17 Range/Units 15:37 15:50 WBC (4.3-11.1) K/mcL RBC (3.82-4.97) M/mcL Hgb (11.5-15.4) g/dL Hct (35.3-44.9) % MCV (83.0-100.0) fL MCH (28.0-33.3) pg MCHC (31.6-35.5) g/dL RDW (11.5-14.5) % Plt Count (140-400) K/mcL MPV (9.4-12.4) fL Immature Gran % (0-4) % Seg Neutrophils % % Lymphocytes % % Monocytes % % Eosinophils % % Basophils % % Neutrophils # (1.6-8.9) K/mcL Lymphocytes # (0.6-4.6) K/mcL Monocytes # (0.0-1.3) K/mcL Eosinophils # (0.0-0.6) K/mcL Basophils # (0.0-0.2) K/mcL VBG pH 7.40 (7.32-7.42) pH Units VBG pCO2 46 (41-51) mmHg VBG pO2 45 (25-50) mmHg VBG HCO3 29 H (21-27) mEq/L Sodium (136-145) mEq/L Potassium (3.5-5.1) mEq/L Chloride (98-107) mEq/L Carbon Dioxide (23-29) mEq/L BUN (8-23) mg/dL Creatinine (0.60-1.20) mg/dL Est GFR ( Amer) (> 60) Est GFR (Non-Af Amer) (> 60) BUN/Creatinine Ratio (6-26) Glucose (70-105) mg/dL Calculated Osmolality (280-300) Calcium (8.6-10.3) mg/dL Magnesium 1.9 (1.6-2.6) mg/dL Troponin I (< 0.04) ng/mL Beta-Hydroxybutyric Acd (0.02-0.27) mmol/L Attestation Statement - Attestation Attestation: I examined this patient and my medical decision-making was reviewed with the Resident Physician. I agree with the documented findings, disposition and treatment plan as described except to the extent set forth below. 66 year old sindhu gallaghers to the ED with complaints of right sided neuro symptoms that started about 7 days ago and states that she has a history of diabetes. Her blood glucose is >600 no gap no acidosis. She is also hypertensive >200/100 and had an MRI about May 26 which was negative. HC Tnegative. WE have managed her blood pressure to 160/80s. Amber merritt be admitted for hyperglycemia and HTN
[2017-06-17] MEDS ORDERED: Acetaminophen 325 MG TABLET PO PRN (18:33)
[2017-06-17] MEDS ORDERED: *HR* Dextrose 50 % in Water (Syg) 50 ML SYRINGE IVP PRN (18:36)
[2017-06-17] MEDS ORDERED: Insulin Regular, Human 100 UNIT/ML IV PRN (18:36)
[2017-06-17] MEDS ORDERED: Naloxone 0.4 MG/ML INJ IVP PRN (18:39)
[2017-06-17] MEDS ORDERED: Insulin Human Regular 100 UNIT in 0.9 % Sodium Chloride 100 ML IVC SCH (18:45)
--- NOTE | 2017-06-17 19:03 | Internal Med History&Physical ---
Date of Encounter: 06/17/17 Time of Encounter: 19:02 Internal Medicine - H&P: HPI Chief complaint: Slurred speech and right sided facial droop Admitted From: Emergency Dept Plans for Post Hospital Care: Home History of present illness: Ms. Giraldo is a 66 year old female was about an medical history of diabetes, hypertension, hyperlipidemia, valvular heart disease, end-stage renal disease on dialysis Monday. Patient was brought to the emergency room by her family members as patient had a slurred speech and decreased movement on the right side. Patient denies chest pain, nausea, shortness of breath, abdominal distention, nausea, vomiting , dizziness and diarrhea. Workup in the emergency room: Patient was evaluated in the emergency room. CT head was done along with a basic labs. CT head: Negative for any acute event. Reason for admission: TIA to rule out CVA and elevated blood sugar likely secondary to poorly controlled diabetes mellitus. Past Med Surg Social Fam HX - Past Medical History Medical history: CHF, diabetes, dialysis, hyperlipidemia, hypertension, renal disease, valvular heart disease Psychiatric history: no psych history - Past Surgical History Surgical History: cholecystectomy, hysterectomy - Social History Smoking Status: Never smoker Smokeless Tobacco Status: No Alcohol use: none Drug use: none Internal Medicine - H&P: Meds Aspirin [Lo-Dose Aspirin EC] 81 mg PO DAILY 11/02/16 [History] Carvedilol [Coreg] 12.5 mg BID 11/02/16 [History] Cholecalciferol (D-3) [Vitamin D] 2,000 unit PO DAILY 11/02/16 [History] Insulin Glargine [Lantus] 45 - 50 unit SQ QPM 11/02/16 [History] Insulin LISPRO [HumaLOG] 1 - 8 unit SQ TID PRN 11/02/16 [History] Isosorbide MONOnitrate (24 HR) [Imdur] 30 mg PO DAILY 11/02/16 [History] amLODIPine [Norvasc] 10 mg PO DAILY 11/02/16 [History] Clopidogrel [Plavix] 75 mg PO DAILY 11/03/16 [History] Lidocaine/Prilocaine CREAM [Emla] 1 appl TP AD PRN 11/03/16 [History] Acetaminophen [Tylenol] 650 mg PO Q6HR PRN #120 tab 11/09/16 [Rx] Phosphorus #1 [K-Phos Neutral Tablet] 250 mg PO DAILY 05/25/17 [History] cloNIDine HCl [CloNIDine HCl] 0.3 mg PO TID #90 tablet 05/28/17 [Rx] Atorvastatin [Lipitor] 40 mg PO QPM 06/17/17 [History] Latanoprost [Xalatan] 1 drop RIGHT EYE HS 06/17/17 [History] 3 Allergy/AdvReac Type Severity Reaction Status Date / Time Erythromycin Base Allergy Intermediate Itching Verified 05/25/17 09:51 fluoxetine Allergy Hives Verified 05/25/17 12:21 Hydralazine Allergy Hives Verified 05/25/17 09:51 ROS unobtainable: due to mental status All Systems PM: A 10-system review of systems was performed and is negative for pertinent findings except as documented above in the HPI. - Constitutional Vitals: Temp Pulse Resp BP Pulse Ox 98.8 F 64 15 209/90 95 06/17/17 13:20 06/17/17 18:40 06/17/17 18:40 06/17/17 18:40 06/17/17 18:40 General appearance: Present: A&O X 2, pleasant, no acute distress - Head Head exam: Present: atraumatic, normocephalic - Eye Eye exam: Present: PERRL, conjuntiva pink, sclera anicteric Pupils: Present: PERRL - Neck Neck exam general surgery: Present: supple, trachea midline. Absent: lymphadenopathy - Respiratory Respiratory exam: Present: CTAB. Absent: accessory muscle use, rales, rhonchi, wheezes - Cardiovascular Cardiovascular exam: Present: RRR, +S1, +S2. Absent: diastolic murmur, gallop, rubs, systolic murmur - GI/Abdominal GI/Abdominal exam: Present: normal bowel sounds, soft, no peritoneal signs. Absent: distended, tenderness - Extremities Exam Extremities exam: Present: warm, radial pulses palpable and symmetrical. Absent : calf tenderness, cyanotic, pedal edema - Neurological Exam Neurological exam: Present: CN II-XII intact, oriented X3, no focal deficits. Absent: pronater drift, facial droop, speech deficit - Skin Skin exam: Present: dry, intact Internal Med - H&P Results - Labs CBC & Chem 7: 06/17/17 13:54 06/17/17 17:32 - Assessment and plan (1) CVA (cerebral vascular accident) Current Visit: Yes Status: Acute Assessment and plan: 66/female Multiple comorbid conditions. Admitted with slurred speech/right-sided weakness. Right-sided weakness improved significantly. Patient still has a slurred speech. CT head: Negative. Blood pressure: Upon arrival 206/96 then gradually decreased to 167/66 Plan: MRI head. Echocardiogram. Ultrasound carotid. Physical therapy/occupational therapy evaluation. Patient is on aspirin/statin. Qualifiers: CVA mechanism: unspecified Qualified Code(s): I63.9 - Cerebral infarction, unspecified (2) Seizures Current Visit: Yes Status: Acute Assessment and plan: Around 9:30 PM patient was still in the emergency room( was supposed to go to stepdown unit around 6:30 PM) patient had a episode of witnessed seizure. Emergency room physician acted immediately. Initially the plan was to intubate the patient. Patient responded well to Ativan. I repeat CT scan of the brain was done. CT head repeat: Negative for any bleed. Plan: Spoke with neurology attending. We will give 1 g of Keppra. We will order EEG. Neurology to follow. (3) ESRD (end stage renal disease) on dialysis Current Visit: No Status: Chronic Assessment and plan: Patient is known to have end-stage renal disease likely secondary to diabetic nephropathy. Patient is presently on dialysis (Monday/Monday/Monday) Potassium/creatinine is within acceptable range. I have personally spoken to nephrology transmission and coordination engineer and updated about the hospitalization. (4) Diabetes mellitus Current Visit: No Status: Chronic Assessment and plan: Noted that patient's blood sugar was 612 upon arrival. We will follow the directions from the order set Qualifiers: Diabetes mellitus type: type 2 Diabetes mellitus alf insulin use: with terminal gauger use Diabetes mellitus complication status: with kidney complications Diabetes mellitus complication detail: with chronic kidney disease Chronic kidney disease stage: on chronic dialysis Qualified Code(s) : E11.22 - Type 2 diabetes mellitus with diabetic chronic kidney disease; N18.6 - End stage renal disease; Z99.2 - Dependence on renal dialysis; Z99.2 - Dependence on renal dialysis; Z99.2 - Dependence on renal dialysis; N18.6 - End stage renal disease; N18.6 - End stage renal disease; N18.6 - End stage renal disease; Z79.4 - terminal superintendent (current) use of insulin; Z79.4 - terminal superintendent (current ) use of insulin; Z79.4 - terminal superintendent (current) use of insulin; Z79.4 - terminal superintendent (current) use of insulin; Z99.2 - Dependence on renal dialysis (5) Hypertension Current Visit: Yes Status: Chronic Assessment and plan: Noted that patient had a rebounds back of the blood pressure. We will closely monitor the blood pressure. We will try clonidine now ( 11.37pm) if the blood pressure is persistently elevated then we will start intravenous medication to control the blood pressure. Qualifiers: Hypertension type: unspecified Qualified Code(s): I10 - Essential (primary ) hypertension (6) DVT prophylaxis Current Visit: No Status: Acute Assessment and plan: SCD Medical decision making: This patient has a moderate to severe risk of worsening in spite of being on appropriate medication due to the underlying complex medical conditions. - Time Spent With Patient Total time spent is greater than 50% in coordination of care (as documented) at patient's floor/unit and/or counseling patient:
--- NOTE | 2017-06-17 19:07 | Emergency Department Note ---
Disposition Clinical Impression: Hyperglycemia Hypertension Qualifiers: Hypertension type: unspecified Qualified Code(s): I10 - Essential (primary) hypertension CVA (cerebral vascular accident) Qualifiers: CVA mechanism: unspecified Qualified Code(s): I63.9 - Cerebral infarction, unspecified Disposition: Admitted As Inpatient Condition: Fair Referrals: Huey Ortega MD [Primary Care Provider] - Time of Disposition: 19:19 Neuro HPI - General Chief Complaint: ED Neuro Symptoms/Deficit Stated Complaint: neuro symptoms x 1 week Time Seen by Provider: 06/17/17 13:25 Source: patient, other Limitations: no limitations Nursing Notes Reviewed: Yes Vital Signs Reviewed: Yes - History of Present Illness HPI Narrative: Patient is a 66-year-old female who presents to [facility] ED with a chief complaint of right-sided weakness of her arms and legs as well as intermittent confusion and difficulty with word finding. Past medical history significant for prior CVA, hypertension, hyperlipidemia, type 2 diabetes. Patient's significant other is present at the bedside who states that she has been increasingly weak on the right side over the last 7 days. Patient denies any recent nausea, vomiting, fever or chills. No chest pain, difficulty breathing, abdominal pain, problems with urination or bowel movements. He states she has been having some more difficulty with swallowing. Symptom Onset Unknown: No (over 7 days ago) Location: speech, right arm, right leg History of same: Yes Severity: moderate Quality: weakness Symptoms Improving: No Improves with: none Worsens with: none Context: gradual onset On Anticoagulants: Yes Associated symptoms: Reports: weakness. Denies: chest pain, cough, fever/chills , headaches, nausea/vomiting, shortness of breath Treatments Prior to Arrival: none - Related Data Home Medications: Home Medications Medication Instructions Recorded Confirmed Aspirin [Lo-Dose Aspirin EC] 81 mg PO DAILY 11/02/16 05/25/17 Carvedilol [Coreg] 12.5 mg BID 11/02/16 05/25/17 Cholecalciferol (D-3) [Vitamin D] 2,000 unit PO DAILY 11/02/16 05/25/17 Insulin Glargine [Lantus] 15 - 40 unit SQ QPM 11/02/16 05/25/17 Insulin LISPRO [HumaLOG] 1 - 8 unit SQ TID PRN 11/02/16 05/25/17 Isosorbide MONOnitrate (24 HR) 30 mg PO DAILY 11/02/16 05/25/17 [Imdur] amLODIPine [Norvasc] 10 mg PO DAILY 11/02/16 05/25/17 Clopidogrel [Plavix] 75 mg PO DAILY 11/03/16 05/25/17 Lidocaine/Prilocaine CREAM [Emla] 1 appl TP AD PRN 11/03/16 05/25/17 Phosphorus #1 [K-Phos Neutral 250 mg PO DAILY 05/25/17 05/25/17 Tablet] Atorvastatin [Lipitor] 40 mg PO QPM 06/17/17 06/17/17 Latanoprost [Xalatan] 1 drop RIGHT EYE HS 06/17/17 06/17/17 Previous Rx's Medication Instructions Recorded Acetaminophen [Tylenol] 650 mg PO Q6HR PRN #120 tab 11/09/16 cloNIDine HCl [CloNIDine HCl] 0.3 mg PO TID #90 tablet 05/28/17 Allergies/Adverse Reactions: Allergies Allergy/AdvReac Type Severity Reaction Status Date / Time Erythromycin Base Allergy Intermediate Itching Verified 05/25/17 09:51 fluoxetine Allergy Hives Verified 05/25/17 12:21 Hydralazine Allergy Hives Verified 05/25/17 09:51 All systems ED: reviewed and negative except as stated. Past Medical History - Past Medical History Attestation: Yes The following information was validated with the patient. Source: patient Medical history: Reports: CHF, diabetes, dialysis, hyperlipidemia, hypertension , renal disease, valvular heart disease Surgical history: Reports: cholecystectomy, hysterectomy Psychiatric history: Reports: no psych history - Social History Smoking Status: Never smoker Smokeless Tobacco Status: No Alcohol use: Reports: none Drug use: Reports: none Physical Exam - General Limitations: no limitations General appearance: alert, in no apparent distress - Head Head exam: atraumatic, normocephalic, normal inspection - Eye Eye exam: Present: normal appearance, PERRL, EOMI - ENT ENT exam: normal exam, normal oropharynx, mucous membranes moist - Neck Neck exam: Present: normal inspection, full ROM, trachea midline - Chest Chest inspection: Present: normal inspection, symmetric chest wall rise - Respiratory Respiratory exam: Present: normal lung sounds bilaterally - Cardiovascular Cardiovascular exam: Present: regular rate, normal rhythm, normal heart sounds - Abdominal Exam Abdominal exam: Present: soft, Non-Tender. Absent: tenderness, distention, guarding, rebound, rigidity - Extremities Exam Extremities exam: Present: normal inspection, full ROM. Absent: tenderness, pedal edema - Back Exam Back exam: Present: normal inspection, full ROM. Absent: tenderness - Neurological Exam Neurological exam: Present: alert, CN II-XII intact, motor sensory deficit - Expanded Neurological Exam Speech: Present: expressive aphasia Cranial nerves: EOM function (II, III, IV, ): Normal, facial sensation (V): Normal, facial palsy (VII): Normal, spinal accessory function (XI): Normal, tongue deviation (XII): Normal Cerebellar function: finger to nose: Normal, heel to lanza: Normal Motor strength - LUE: 5/5 Motor strength - RUE: 3/5 Motor strength - LLE: 5/5 Motor strength - RLE: 3/5 Sensory exam upper extremity: light touch: Abnormal Left Sensory exam lower extremity: light touch: Abnormal Left Coma Scale Eye Opening: Spontaneous Coma Scale Motor Response: Obeys Commands Coma Scale Verbal Response: Confused Coma Scale Total: 14 - Psychiatric Psychiatric exam: Present: normal affect, normal mood - Skin Skin exam: Present: warm, dry, intact, normal color Course Course Narrative: Patient seen and examined. Patient with intermittent confusion/word finding difficulty. Her fiance states this happens all the time. However the right- sided weakness has been worsening over the last week. No last known well. Stroke alert was not called. Lab work CT of the head ordered. Patient does have history of end-stage renal disease on dialysis Monday and Monday. She follows with voice engineer Dr. Sutherland. - Reevaluation(s) Reevaluation #1: head CT was unremarkable. Lab work showed hyperglycemia with a glucose in the 600s. We did give her a dose of bolus insulin 0.1 mg/kg. We will recheck glucose. Patient also given a liter of fluids. Her blood pressure was elevated with systolic in the 200s. We gave her a dose of 5 mg of Lopressor. This did improve her blood pressure to systolic 160s. Patient's creatinine is elevated but at her baseline. I discussed with the hospitalist Dr. Weinberg who has accepted patient for admission for hypertensive urgency, CVA, hyperglycemia. Time: 19:15 Vital Signs Temperature 98.8 F 06/17/17 13:20 Pulse Rate 70 06/17/17 13:20 Respiratory Rate 16 06/17/17 13:20 Blood Pressure 206/96 06/17/17 13:20 O2 Sat by Pulse Oximetry 97 06/17/17 13:20 Temperature 98.8 F 06/17/17 13:20 Pulse Rate 64 06/17/17 18:40 Respiratory Rate 15 06/17/17 18:40 Blood Pressure 209/90 06/17/17 18:40 O2 Sat by Pulse Oximetry 95 06/17/17 18:40 Oxygen Delivery Oxygen Delivery Room Air Neuro Symptoms/Deficit - Medical Records Medical records reviewed: Yes I reviewed the patient's medical records. - Lab Data Lab results reviewed: Yes I reviewed the patient's lab results. Result diagrams: 06/17/17 13:54 06/17/17 17:32 Lab Results 06/17/17 06/17/17 06/17/17 Range/Units 13:54 13:54 15:37 WBC 3.8 L (4.3-11.1) K/mcL RBC 3.57 L (3.82-4.97) M/mcL Hgb 10.2 L (11.5-15.4) g/dL Hct 30.8 L (35.3-44.9) % MCV 86.3 (83.0-100.0) fL MCH 28.6 (28.0-33.3) pg MCHC 33.1 (31.6-35.5) g/dL RDW 14.2 (11.5-14.5) % Plt Count 179 (140-400) K/mcL MPV 10.9 (9.4-12.4) fL Immature Gran % 0.5 (0-4) % Seg Neutrophils % 74.2 % Lymphocytes % 15.9 % Monocytes % 8.1 % Eosinophils % 0.8 % Basophils % 0.5 % Neutrophils # 2.8 (1.6-8.9) K/mcL Lymphocytes # 0.6 (0.6-4.6) K/mcL Monocytes # 0.3 (0.0-1.3) K/mcL Eosinophils # 0.0 (0.0-0.6) K/mcL Basophils # 0.0 (0.0-0.2) K/mcL VBG pH (7.32-7.42) pH Units VBG pCO2 (41-51) mmHg VBG pO2 (25-50) mmHg VBG HCO3 (21-27) mEq/L Sodium 132 L (136-145) mEq/L Potassium 3.7 (3.5-5.1) mEq/L Chloride 94 L (98-107) mEq/L Carbon Dioxide 30 H (23-29) mEq/L BUN 26 H (8-23) mg/dL Creatinine 4.54 H (0.60-1.20) mg/dL Est GFR ( Amer) 12 L (> 60) Est GFR (Non-Af Amer) 10 L (> 60) BUN/Creatinine Ratio 6 (6-26) Glucose 612 H* (70-105) mg/dL Calculated Osmolality 307 H (280-300) Calcium 8.4 L (8.6-10.3) mg/dL Magnesium (1.6-2.6) mg/dL Troponin I < 0.03 (< 0.04) ng/mL Beta-Hydroxybutyric Acd 0.27 (0.02-0.27) mmol/L 06/17/17 06/17/17 06/17/17 Range/Units 15:37 15:50 17:32 WBC (4.3-11.1) K/mcL RBC (3.82-4.97) M/mcL Hgb (11.5-15.4) g/dL Hct (35.3-44.9) % MCV (83.0-100.0) fL MCH (28.0-33.3) pg MCHC (31.6-35.5) g/dL RDW (11.5-14.5) % Plt Count (140-400) K/mcL MPV (9.4-12.4) fL Immature Gran % (0-4) % Seg Neutrophils % % Lymphocytes % % Monocytes % % Eosinophils % % Basophils % % Neutrophils # (1.6-8.9) K/mcL Lymphocytes # (0.6-4.6) K/mcL Monocytes # (0.0-1.3) K/mcL Eosinophils # (0.0-0.6) K/mcL Basophils # (0.0-0.2) K/mcL VBG pH 7.40 (7.32-7.42) pH Units VBG pCO2 46 (41-51) mmHg VBG pO2 45 (25-50) mmHg VBG HCO3 29 H (21-27) mEq/L Sodium (136-145) mEq/L Potassium (3.5-5.1) mEq/L Chloride (98-107) mEq/L Carbon Dioxide (23-29) mEq/L BUN (8-23) mg/dL Creatinine (0.60-1.20) mg/dL Est GFR ( Amer) (> 60) Est GFR (Non-Af Amer) (> 60) BUN/Creatinine Ratio (6-26) Glucose 391 H (70-105) mg/dL Calculated Osmolality (280-300) Calcium (8.6-10.3) mg/dL Magnesium 1.9 (1.6-2.6) mg/dL Troponin I (< 0.04) ng/mL Beta-Hydroxybutyric Acd (0.02-0.27) mmol/L - Radiology Data Radiology results reviewed: Yes I reviewed the patient's radiology results. Head CT 06/17/17 13:59 IMPRESSION: No acute intracranial abnormality. D/ / 06/17/2017 14:42:27 Jone Mccallum MD / [facility] Interpreting Provider: Jone Mccallum MD Chest X-Ray 06/17/17 14:46 IMPRESSION: Cardiomegaly with chronic interstitial lung changes. D/ / 06/17/2017 15:47:32 Juan Pablo Fields MD / [facility] Interpreting Provider: Juan Pablo Fields MD - EKG Data EKG attestation: Yes I reviewed and interpreted this EKG. EKG results narrative: EKG done at 1505 shows normal sinus rhythm with a rate of [address] elevation. There is ST depression in V5 and V6. Mildly prolonged QT interval at 483 QTC. General he appears unchanged from prior EKG as her QTC at that time was 477. NIH Stroke Scale - Level of Consciousness LOC: Alert - LOC Questions LOC Questions: Answers one correctly - LOC Commands LOC Commands: Performs both correctly - Best Gaze Best Gaze: Normal - Visual Visual: No visual loss - Facial Palsy Facial Palsy: Normal - Motor Arms Motor Arm-Left: No drift for 10 seconds Motor Arm-Right: Some effort against gravity, limb drifts to bed - Motor Legs Motor Leg-Left: No drift for 5 seconds Motor Leg-Right: Some effort against gravity, limb drifts to bed - Limb Ataxia Limb Ataxia: Normal, No Ataxia - Sensory Sensory: Mild to moderate loss, "not as sharp" - Best Language Best Language: No aphasia - Dysarthria Dysarthria: Normal - Extinction and Inattention Extinction and Inattention: Normal - NIHSS Total Score NIHSS Total Score: 6 TPA Checklist - LKW: 3-4.5 hrs Add. Warnings/Precautions Patient/family understanding: The patient/family members have been counseled and understood the risk, benefit , and alternatives of treatment.
[2017-06-17 19:29] LABS: VBG HCO3 24 mEq/L (21-27); VBG PCO2 33 mmHg (41-51); VBG PH 7.48 pH Units (7.32-7.42); VBG PO2 192 mmHg (25-50)
[2017-06-17 21:29] LABS: Amphetamine Screen,Urine Negative ng/mL (Cutoff=1000); Barbiturate Screen,Urine Negative ng/mL (Cutoff=200); Benzodiazepines Screen,Urine Negative ng/mL (Cutoff=200); Cannabinoid Screen,Urine Negative ng/mL (Cutoff = 50); Cocaine Screen,Urine Negative ng/mL (Cutoff= 300); Opiate Screen,Urine Negative ng/mL (Cutoff=300); Phencyclidine Screen,Urine Negative ng/mL (Cutoff=25)
[2017-06-17] MEDS ORDERED: levETIRAcetam 1,000 MG in 0.9 % Sodium Chloride 100 ML IVPB ONE (22:40)
[2017-06-17] MEDS ORDERED: *HR* LORazepam 2 MG/ML VIAL IVP ONE (22:46)
[2017-06-17] MEDS ORDERED: *HR* Midazolam HCl 2 MG/2 ML VIAL IVP ONE (22:46)
[2017-06-17] MEDS: cloNIDine HCl 0.1 MG TABLET PO SCH (23:04)
[2017-06-17] MEDS: Latanoprost 2.5 ML BOTTLE RIGHT EYE SCH (23:26)
[2017-06-17] MEDS: 0.9 % Sodium Chloride 1,000 ML IVC SCH (23:31)
[2017-06-18 00:02] LABS: Albumin 3.3 g/dL (3.5-5.7); Albumin/Globulin Ratio 1.3 (1.1-2.2); Bilirubin,Total 0.7 mg/dL (0.3-1.0); Calcium 8.5 mg/dL (8.6-10.3); Globulin 2.5 g/dL (2.4-3.5); Potassium 3.3 mEq/L (3.5-5.1); Total Protein 5.8 g/dL (6.4-8.9)
[2017-06-18 00:10] LABS: Troponin I 0.03 ng/mL (< 0.04)
[2017-06-18] MEDS: *HR* Heparin 5,000 UNIT/ML VIAL SQ SCH ×3 (00:40→16:33)
[2017-06-18] MEDS ORDERED: Dextrose Gel 15 GM/37.5 ML TUBE PO PRN ×2 (01:03)
[2017-06-18] MEDS ORDERED: D5% in Water 1,000 ML IVC PRN (01:03)
[2017-06-18] MEDS: Insulin DETEMIR 100 UNIT/ML X5UNITS SQ SCH ×2 (01:40→20:09)
[2017-06-18 05:41] LABS: Basophils % 0.2 %; Eosinophils % 0.2 %; Hematocrit 29.3 % (35.3-44.9); Hemoglobin 9.9 g/dL (11.5-15.4); Immature Granulocytes % 0.7 % (0-4); Lymphocytes # 0.7 K/mcL (0.6-4.6); Lymphocytes % 11.9 %; Mean Corpuscular HGB Conc 33.8 g/dL (31.6-35.5); Mean Corpuscular Volume 85.9 fL (83.0-100.0); Mean Platelet Volume 10.6 fL (9.4-12.4); Monocytes # 0.2 K/mcL (0.0-1.3); Monocytes % 3.6 %; Neutrophils # 4.7 K/mcL (1.6-8.9); Platelet Count 165 K/mcL (140-400); Red Blood Count 3.41 M/mcL (3.82-4.97); Red Cell Distribution Width 14.2 % (11.5-14.5); Segmented Neutrophils % 83.4 %
[2017-06-18 06:07] LABS: Albumin 3.1 g/dL (3.5-5.7); Albumin/Globulin Ratio 1.5 (1.1-2.2); Bilirubin,Total 0.5 mg/dL (0.3-1.0); Calcium 8.5 mg/dL (8.6-10.3); Globulin 2.1 g/dL (2.4-3.5); Magnesium 1.8 mg/dL (1.6-2.6); Phosphorous 5.7 mg/dL (2.7-4.5); Potassium 3.4 mEq/L (3.5-5.1); Total Protein 5.2 g/dL (6.4-8.9)
[2017-06-18] MEDS: Insulin LISPRO 300 UNITS/3 ML VIAL SQ SCH ×4 (07:40→20:09)
[2017-06-18] MEDS: 0.9 % Sodium Chloride 1,000 ML IVC SCH (07:44)
--- NOTE | 2017-06-18 07:46 | Internal Med Progress Note ---
Date of Encounter: 06/18/17 Time of Encounter: 07:44 - Assessment and plan (1) CVA (cerebral vascular accident) Current Visit: Yes Status: Acute Assessment and plan: CT head is negative 2. Neurology is consulted. Continue aspirin, Plavix, statin. Rest of stroke workup has been ordered including MRI brain, echo, carotid Dopplers. Neuro checks. PTOT. Speech eval. Allow for permissive hypertension. Qualifiers: CVA mechanism: unspecified Qualified Code(s): I63.9 - Cerebral infarction, unspecified (2) Seizures Current Visit: Yes Status: Acute Assessment and plan: CT head is negative. MRI pending. EEG pending. Neurology has been consulted. Received Keppra 1000 mg. No history of seizures. (3) ESRD (end stage renal disease) on dialysis Current Visit: No Status: Chronic Assessment and plan: Nephrology consulted. Plans for dialysis per them.. (4) Diabetes mellitus Current Visit: No Status: Chronic Assessment and plan: Currently the patient needed an insulin drip initially. Has been switched to subcutaneous insulin now. Glucose still in the 300s. We will check A1c. Received 40 units of Levemir at 1 AM. We will see how her glucose are this morning into the afternoon and if needed we will either put her back on the insulin drip or give her more basal insulin. Continue Accu-Cheks. Continue SSI. Qualifiers: Diabetes mellitus type: type 2 Diabetes mellitus moth exterminator insulin use: with retirement use Diabetes mellitus complication status: with kidney complications Diabetes mellitus complication detail: with chronic kidney disease Chronic kidney disease stage: on chronic dialysis Qualified Code(s) : E11.22 - Type 2 diabetes mellitus with diabetic chronic kidney disease; N18.6 - End stage renal disease; N18.6 - End stage renal disease; N18.6 - End stage renal disease; N18.6 - End stage renal disease; Z79.4 - marine oil terminal superintendent (current) use of insulin; Z79.4 - [facility] (current) use of insulin; Z79.4 - marine oil terminal superintendent ( current) use of insulin; Z79.4 - marine oil terminal superintendent (current) use of insulin; Z99.2 - Dependence on renal dialysis; Z99.2 - Dependence on renal dialysis; Z99.2 - Dependence on renal dialysis; Z99.2 - Dependence on renal dialysis (5) Hypertension Current Visit: Yes Status: Chronic Assessment and plan: Allow For permissive hypertension for now. Her blood pressures in the 170s systolically. Patient is on clonidine and Norvasc at home. Qualifiers: Hypertension type: unspecified Qualified Code(s): I10 - Essential (primary ) hypertension (6) CAD (coronary artery disease) Current Visit: Yes Status: Acute Assessment and plan: Patient has refused left heart catheterizations in the past. This was noted on a cardiology consult back in October 2016. We will continue with aspirin, statin , Plavix, Coreg, Imdur. Qualifiers: Coronary Disease-Associated Artery/Lesion type: [place] artery [place] vs. transplanted heart: [place] heart Associated angina: without angina Qualified Code(s): I25.10 - Atherosclerotic heart disease of [place] coronary artery without angina pectoris (7) DVT prophylaxis Current Visit: No Status: Acute Assessment and plan: Heparin subcutaneous. - Time Spent With Patient Total time spent is greater than 50% in coordination of care (as documented) at patient's floor/unit and/or counseling patient: - Subjective Interval history: Patient was seen and examined. No acute events. Admitted to the ICU yesterday with right-sided weakness in arms and legs and word finding difficulty. On initial presentation was found to have elevated blood pressure in the 200s systolically. I see a blood pressure reading as high as 231/104 yesterday. The patient was given Lopressor with a blood pressure coming down. The patient' s symptoms may have started about 7 days ago. She was outside of any TPA window. CT head was negative. Had an episode of witnessed seizure in the ED for which she was given Ativan. Also noted to have hyperglycemia with a glucose in the 600s. - Constitutional Vitals: Temp Pulse Resp BP Pulse Ox 97.6 F 59 18 177/74 100 06/18/17 02:46 06/18/17 06:00 06/18/17 03:00 06/18/17 06:00 06/18/17 06:00 General appearance: Present: A&O X 2, pleasant, no acute distress Exam: GEN: NAD CVS: RRR. S1, S2, No m/r/g RESP: CTAB ABD: Soft, NT, ND, +BS EXT: No edema. 2+ DP. No rashes NEURO: Nonfocal Internal Medicine: Result - Labs CBC & Chem 7: 06/18/17 05:24 06/18/17 05:24 Labs: Short CBC 06/18/17 Range/Units 05:24 WBC 5.6 (4.3-11.1) K/mcL Hgb 9.9 L (11.5-15.4) g/dL Hct 29.3 L (35.3-44.9) % Plt Count 165 (140-400) K/mcL Neutrophils # 4.7 (1.6-8.9) K/mcL BMP 06/17/17 06/18/17 23:34 05:24 Sodium 135 L 138 Potassium 3.3 L 3.4 L Chloride 100 101 Carbon Dioxide 25 26 BUN 26 H 28 H Creatinine 4.60 H 4.62 H Glucose 362 H 356 H Calcium 8.5 L 8.5 L Cardiac Enzymes 06/17/17 06/18/17 Range/Units 23:34 05:24 Troponin I 0.03 0.03 (< 0.04) ng/mL Liver Function 06/17/17 06/18/17 Range/Units 23:34 05:24 Total Bilirubin 0.7 0.5 (0.3-1.0) mg/dL AST 16 13 (13-39) Units/L ALT 11 9 (7-52) Units/L Alkaline Phosphatase 90 83 (34-104) Units/L Albumin 3.3 L 3.1 L (3.5-5.7) g/dL - VTE Documentation of Mechanical Device: Intermittent pneumatic compression device Consult Discharge Plan - Plan Referrals: Huey Ortega MD [Primary Care Provider] -
[2017-06-18] MEDS: cloNIDine HCl 0.1 MG TABLET PO SCH ×3 (08:47→20:09)
[2017-06-18] MEDS: Cholecalciferol (D-3) 1,000 UNIT TABLET PO SCH (08:47)
[2017-06-18] MEDS: amLODIPine 5 MG TABLET PO SCH (08:48)
[2017-06-18] MEDS: Aspirin Enteric Coated 81 MG Tablet PO SCH (08:48)
[2017-06-18] MEDS: Isosorbide MONOnitrate (24 HR) 30 MG TAB.ER.24H PO SCH (08:48)
--- NOTE | 2017-06-18 11:41 | Neurology - Consult Note ---
Date of Encounter: 06/18/17 Time of Encounter: 11:38 Assessment and Plan (1) Seizures Current Visit: Yes Status: Acute This patient who noted to have an spell earlier which seems to be like a seizure perhaps she could have a convulsive seizure type of activity but in the context of elevated blood pressure as well as significant hyperglycemia I would not recommend starting her on any antiepileptic medication as it was likely related to underlying severe metabolic dysfunction. Currently she seemed to be doing better blood sugar is been getting better suggest to continue to monitor it and keep it stable keep her on IV fluids and keep blood pressure and blood sugar in the normal or near-normal range as recommended by primary team. Imaging studies has been negative twice no evidence of any stroke on her current neurological examination patient is moving all 4 extremities equally and did not have any focal motor deficit though with this elevated blood sugar quite possible that she could have a lacunar infarct but clinically she has no sign off it now. At the same time her symptoms which she had it earlier slurring of the speech and weakness could be related to the underlying hyperglycemia and elevated blood pressure. Certainly she would require better blood sugar and blood pressure control otherwise she remain at a very high risk for devastating a stroke. She is already on antiplatelet therapy suggested to continue on it. Perhaps he could do workup for the stroke including carotid duplex and echocardiogram but main is to control her blood sugar and blood pressure has a major risk factor for stroke. (2) Hyperglycemia Current Visit: Yes Status: Acute History of Present Illness HPI: Ms. Giraldo is a 66 year old female WITH past medical history of diabetes, hypertension, hyperlipidemia, valvular heart disease, end-stage renal disease on dialysis, admitted with slurred speech, weakness of right side off and on for about a week, no chest pain, nausea, shortness of breath, abdominal distention, nausea, vomiting, dizziness and diarrhea. she had Workup in the emergency room where CT of head was negative for any acute bleed or infarct. Her blood sugar was noted to be in 600s, she was treated with IV fluids and insulin later on she was noted to have some jerking movement of the body the concern of a seizure , she has received IV benzos seizure activity stopped gradually start coming to the baseline she is been monitored in the ICU now No further seizure type of activity initially there was a concern that her symptoms could be related to TIA or CVA though CT scan of the head twice were negative for any acute ischemia or bleed . Past Med Surg Social Fam HX - Past Medical History Medical history: CHF, diabetes, dialysis, hyperlipidemia, hypertension, renal disease, valvular heart disease Psychiatric history: no psych history - Past Surgical History Surgical History: cholecystectomy, hysterectomy - Social History Smoking Status: Never smoker Smokeless Tobacco Status: No Alcohol use: none Drug use: none Medications and Allergies Aspirin [Lo-Dose Aspirin EC] 81 mg PO DAILY 11/02/16 [History] Carvedilol [Coreg] 12.5 mg BID 11/02/16 [History] Cholecalciferol (D-3) [Vitamin D] 2,000 unit PO DAILY 11/02/16 [History] Insulin Glargine [Lantus] 45 - 50 unit SQ QPM 11/02/16 [History] Insulin LISPRO [HumaLOG] 1 - 8 unit SQ TID PRN 11/02/16 [History] Isosorbide MONOnitrate (24 HR) [Imdur] 30 mg PO DAILY 11/02/16 [History] amLODIPine [Norvasc] 10 mg PO DAILY 11/02/16 [History] Clopidogrel [Plavix] 75 mg PO DAILY 11/03/16 [History] Lidocaine/Prilocaine CREAM [Emla] 1 appl TP AD PRN 11/03/16 [History] Acetaminophen [Tylenol] 650 mg PO Q6HR PRN #120 tab 11/09/16 [Rx] Phosphorus #1 [K-Phos Neutral Tablet] 250 mg PO DAILY 05/25/17 [History] cloNIDine HCl [CloNIDine HCl] 0.3 mg PO TID #90 tablet 05/28/17 [Rx] Atorvastatin [Lipitor] 40 mg PO QPM 06/17/17 [History] Latanoprost [Xalatan] 1 drop RIGHT EYE HS 06/17/17 [History] 3 Allergy/AdvReac Type Severity Reaction Status Date / Time Erythromycin Base Allergy Intermediate Itching Verified 05/25/17 09:51 fluoxetine Allergy Hives Verified 05/25/17 12:21 Hydralazine Allergy Hives Verified 05/25/17 09:51 All Systems: The remainder of the systems were reviewed and are negative Physical Examination - Vital Signs Vital Signs: Initial Vital Signs Temp Pulse Resp BP Pulse Ox 98.8 F 70 16 206/96 97 06/17/17 13:20 06/17/17 13:20 04/14/18 13:20 06/17/17 13:20 06/17/17 13:20 - Exam Exam: GENERAL: Comfortable in no acute distress HEENT: Normal LUNGS: CTA HEART: RRR, S1 S2 Audible, no murmur EXTREMITIES: No Pedal edema. DETAILED NEUROLOGICAL EXAMINATION: MENTAL STATUS: Oriented to person, place, date and situation, drowsy but arouasble Cranial Nerve Examination: CN - II: Visual Acuity, Field of Vision Normal, Fundus examination: No disk edema, Pupils- size shape reaction to light and accommodation: All normal. CN III, IV, : External ocular movements were intact, Pupils were reactive, Nodrooping of the eyelids CN V: Sensation over the face to light touch and pinprick all normal. Corneal reflexes not tested, jaw jerk normal. CN VII: No facial asymmetry, no flattening of nasolabial folds, no difficulty in closing the eyes, no loss of forehead wrinkles, no difficulty in eye-closure, frowning raising eyebrows. CNVIII: No significant hearing loss CN IX, X: Uvula centralized not deviated, Gag reflex: Not tested CN X1: Sternocleidomastoid, trapezius, normal or evidence of any weakness. CN X11: No Dysarthria, no wasting or fibrilation f tongue muscles, no deviation, tongue muscle strength normal. Motor examination: No hypertrophy, tone was normal, power grade 0-5 Upper limbs Proximal- No difficulty in lifting the arms above the head. Distal- Noweakness in distal muscles On formal testing 4/4 all over Lower limbs On formal testing 4/4 all over Coordination: [id number] normal but slow . Target pursuit normal finger tapping normal, Rapid alternating moment of wrist normal Sensory system: Superficial sensations- Touch normal. Pain- Pinprick, Temperature decrease in both lower ext, inconsistent Deep sensation normal, Joint position sense normal. Cortical sensation, Tactile discrimination, localization and extinction all normal. Deep tendon reflexes. Symmetrical bilateral, No evidence of Babinski. No sign of meningeal irritation Gait Examination: Deferred Results - Laboratory Findings CBC and BMP: 06/18/17 05:24 06/18/17 05:24 Abnormal lab findings: Abnormal lab results RBC 3.41 M/mcL (3.82-4.97) L 06/18/17 05:24 Hgb 9.9 g/dL (11.5-15.4) L 06/18/17 05:24 Hct 29.3 % (35.3-44.9) L 06/18/17 05:24 VBG pH 7.48 pH Units (7.32-7.42) H 06/17/17 19:25 VBG pCO2 33 mmHg (41-51) L 06/17/17 19:25 VBG pO2 192 mmHg (25-50) H 06/17/17 19:25 Potassium 3.4 mEq/L (3.5-5.1) L 06/18/17 05:24 BUN 28 mg/dL (8-23) H 06/18/17 05:24 Creatinine 4.62 mg/dL (0.60-1.20) H 06/18/17 05:24 Est GFR ( Amer) 12 (> 60) L 06/18/17 05:24 Est GFR (Non-Af Amer) 10 (> 60) L 06/18/17 05:24 Glucose 356 mg/dL (70-105) H 06/18/17 05:24 POC Glucose 340 mg/dL (70-99) H 06/18/17 00:42 Calculated Osmolality 306 (280-300) H 06/18/17 05:24 Calcium 8.5 mg/dL (8.6-10.3) L 06/18/17 05:24 Phosphorus 5.7 mg/dL (2.7-4.5) H 06/18/17 05:24 Serum Total Protein 5.2 g/dL (6.4-8.9) L 06/18/17 05:24 Albumin 3.1 g/dL (3.5-5.7) L 06/18/17 05:24 Globulin 2.1 g/dL (2.4-3.5) L 06/18/17 05:24 Consult Discharge Plan - Plan Referrals: Huey Ortega MD [Primary Care Provider] -
--- NOTE | 2017-06-18 13:01 | Nephrology Consult Note ---
Date of Encounter: 06/18/17 Time of Encounter: 12:00 Assessment and Plan (1) ESRD (end stage renal disease) on dialysis Current Visit: No Status: Chronic Lytes stable except for potassium slightly low at 3.4, no repletion at this time needed Next HD planned for tomorrow Renal diet advised when safe to resume diet (2) Hyperglycemia Current Visit: Yes Status: Acute per primary team (3) Seizures Current Visit: Yes Status: Acute Neurology on board, appreciate recs History of Present Illness - Reason for Consult Consult date: 06/18/17 end stage renal disease Requesting physician: Azeem Weinberg - History of Present Illness 66 y o female with PMH of DM, HTN annd ESRD n HD -- in [facility] admitted with slurred speech and r facial droop. She was also noted with hyperglycemia and had a witnessed seizure during stay overnight. Renal consulted for ESRD managment. Pt seen and examined feels tired but awake and answers questions appropriately. Past Med Surg Social Fam HX - Past Medical History Medical history: CHF, diabetes, dialysis, hyperlipidemia, hypertension, renal disease, valvular heart disease Psychiatric history: no psych history - Past Surgical History Surgical History: cholecystectomy, hysterectomy - Social History Smoking Status: Never smoker Smokeless Tobacco Status: No Alcohol use: none Drug use: none Medications and Allergies Aspirin [Lo-Dose Aspirin EC] 81 mg PO DAILY 11/02/16 [History] Carvedilol [Coreg] 12.5 mg BID 11/02/16 [History] Cholecalciferol (D-3) [Vitamin D] 2,000 unit PO DAILY 11/02/16 [History] Insulin Glargine [Lantus] 45 - 50 unit SQ QPM 11/02/16 [History] Insulin LISPRO [HumaLOG] 1 - 8 unit SQ TID PRN 11/02/16 [History] Isosorbide MONOnitrate (24 HR) [Imdur] 30 mg PO DAILY 11/02/16 [History] amLODIPine [Norvasc] 10 mg PO DAILY 11/02/16 [History] Clopidogrel [Plavix] 75 mg PO DAILY 11/03/16 [History] Lidocaine/Prilocaine CREAM [Emla] 1 appl TP AD PRN 11/03/16 [History] Acetaminophen [Tylenol] 650 mg PO Q6HR PRN #120 tab 11/09/16 [Rx] Phosphorus #1 [K-Phos Neutral Tablet] 250 mg PO DAILY 05/25/17 [History] cloNIDine HCl [CloNIDine HCl] 0.3 mg PO TID #90 tablet 05/28/17 [Rx] Atorvastatin [Lipitor] 40 mg PO QPM 06/17/17 [History] Latanoprost [Xalatan] 1 drop RIGHT EYE HS 06/17/17 [History] 3 Allergy/AdvReac Type Severity Reaction Status Date / Time Erythromycin Base Allergy Intermediate Itching Verified 05/25/17 09:51 fluoxetine Allergy Hives Verified 05/25/17 12:21 Hydralazine Allergy Hives Verified 05/25/17 09:51 Review of Systems ROS unobtainable: due to endotracheal tube (systems reviewed) Exam - Vital Signs Vital signs: Initial Vital Signs Temp Pulse Resp BP Pulse Ox 98.8 F 70 16 206/96 97 06/17/17 13:20 06/17/17 13:20 06/17/17 13:20 06/17/17 13:20 06/17/17 13:20 Vital Signs - Last 8 Hours Temp Pulse Resp BP Pulse Ox 06/18/17 11:54 97.7 F 54 17 145/75 99 06/18/17 10:59 56 16 134/59 99 06/18/17 09:06 59 19 190/74 99 06/18/17 08:53 56 23 194/82 100 06/18/17 07:57 97.5 F L 06/18/17 06:00 59 177/74 100 06/18/17 05:00 58 176/72 100 Intake and Output 06/17/17 06/18/17 06/18/17 23:59 07:59 15:59 Intake Total 170 / 170 Output Total 450 / 450 0 / 0 Balance -450 / -450 170 / 170 Intake: Oral 170 / 170 Output: Urine 450 / 450 0 / 0 Other: Meal Breakfast Percent of Meal Consumed 100% Weight 72 kg 72 kg Blood Glucose* 347 256 113 Patient Weight 06/18/17 23:59 Weight 72 kg - General Appearance General appearance: chronically ill (NAD), fatigue EENT: ATNC, mucous membranes dry Neck: no JVD, supple Respiratory: clear (ant bilat) Cardiology: no edema, normal S1, normal S2 - Dialysis Access Dialysis Vascular Access: Arteriovenous Fistula Gastrointestinal: no tenderness, no guarding Integumentary: warm and dry Neurologic: alert and oriented x3 Musculoskeletal: no deformities Psychiatric: mood/affect appropriate, cooperative Results - Lab Results 06/18/17 05:24 06/18/17 05:24 Most recent lab results Calcium 8.5 mg/dL (8.6-10.3) L 06/18/17 05:24 Phosphorus 5.7 mg/dL (2.7-4.5) H 06/18/17 05:24 Magnesium 1.8 mg/dL (1.6-2.6) 06/18/17 05:24 Consult Discharge Plan - Plan Referrals: Huey Ortega MD [Primary Care Provider] -
[2017-06-18] MEDS: Latanoprost 2.5 ML BOTTLE RIGHT EYE SCH (20:09)
[2017-06-18 23:42] LABS: Estimated Average Glucose 272 mg/dl; Hemoglobin A1C 11.1 %
[2017-06-19] MEDS: *HR* Heparin 5,000 UNIT/ML VIAL SQ SCH ×4 (00:26→23:45)
[2017-06-19 05:20] LABS: Basophils % 0.5 %; Eosinophils # 0.1 K/mcL (0.0-0.6); Eosinophils % 1.9 %; Hematocrit 37.2 % (35.3-44.9); Hemoglobin 12.4 g/dL (11.5-15.4); Immature Granulocytes % 0.6 % (0-4); Lymphocytes # 0.9 K/mcL (0.6-4.6); Lymphocytes % 14.1 %; Mean Corpuscular HGB Conc 33.3 g/dL (31.6-35.5); Mean Corpuscular Hemoglobin 29.2 pg (28.0-33.3); Mean Corpuscular Volume 87.7 fL (83.0-100.0); Mean Platelet Volume 10.4 fL (9.4-12.4); Monocytes # 0.4 K/mcL (0.0-1.3); Monocytes % 5.7 %; Neutrophils # 4.9 K/mcL (1.6-8.9); Platelet Count 213 K/mcL (140-400); Red Blood Count 4.24 M/mcL (3.82-4.97); Red Cell Distribution Width 14.5 % (11.5-14.5); Segmented Neutrophils % 77.2 %
[2017-06-19 05:43] LABS: Potassium 2.8 mEq/L (3.5-5.1)
[2017-06-19] MEDS: D5% in 0.9% NACL 1,000 ML IVC SCH (06:10)
[2017-06-19] MEDS: Insulin LISPRO 300 UNITS/3 ML VIAL SQ SCH ×4 (07:27→21:45)
[2017-06-19] MEDS: Aspirin Enteric Coated 81 MG Tablet PO SCH (07:35)
[2017-06-19] MEDS: cloNIDine HCl 0.1 MG TABLET PO SCH ×3 (07:35→21:45)
[2017-06-19] MEDS: Isosorbide MONOnitrate (24 HR) 30 MG TAB.ER.24H PO SCH (07:36)
[2017-06-19] MEDS: Cholecalciferol (D-3) 1,000 UNIT TABLET PO SCH (07:36)
[2017-06-19] MEDS: amLODIPine 5 MG TABLET PO SCH (07:38)
--- NOTE | 2017-06-19 08:58 | Neurology Progress Note ---
Date of Encounter: 06/19/17 Time of Encounter: 07:15 Assessment and Plan (1) Seizures Current Visit: Yes Status: Acute doing better, NO new symptoms, no evidence of stroke on exam or CT, doubt it was a seizure Carotid negative, suggest Holter may do as out pt, OK to DC from neuro stand point for Incidental Meningioma f/u in office, need repeat MRI of brain in 6 months to a year (2) Hyperglycemia Current Visit: Yes Status: Acute Subjective Interval history: pt stable no new symptoms, CT and carotids are negative, Objective - Constitutional Vitals: Temp Pulse Resp BP Pulse Ox 98 F 50 16 168/83 100 06/19/17 06:59 06/19/17 06:59 06/19/17 06:59 06/19/17 06:59 06/19/17 06:59 - Neurological Exam Sensorimotor examination: Present: intact Motor Examination: Present: grossly full strength in all extremities Sensation intact: Present: intact Reflex and gait examination: intact Reflexes: Biceps: 1+, Triceps: 1+, Brachioradialis: 1+, Patella: 1+, Achilles: 1 + Mental Status Examination: Present: awake, alert, oriented to person, oriented to place, oriented to time Cranial nerve examination: Present: PERRL, EOMI, visual shetty intact, no facial asymmetry is present Cerebellar examination: Present: no dysmetria - VTE Documentation of Mechanical Device: Intermittent pneumatic compression device Results - Laboratory Findings CBC and BMP: 06/19/17 04:56 06/19/17 04:56 Abnormal lab findings: Abnormal lab results VBG pH 7.48 pH Units (7.32-7.42) H 06/17/17 19:25 VBG pCO2 33 mmHg (41-51) L 06/17/17 19:25 VBG pO2 192 mmHg (25-50) H 06/17/17 19:25 Potassium 2.8 mEq/L (3.5-5.1) L 06/19/17 04:56 BUN 40 mg/dL (8-23) H 06/19/17 04:56 Creatinine 5.39 mg/dL (0.60-1.20) H 06/19/17 04:56 Est GFR ( Amer) 10 (> 60) L 06/19/17 04:56 Est GFR (Non-Af Amer) 8 (> 60) L 06/19/17 04:56 Glucose 38 mg/dL (70-105) L* 06/19/17 04:56 POC Glucose 113 mg/dL (70-99) H 06/18/17 11:53 Hemoglobin A1c 11.1 % (-5.6) H 06/17/17 13:54 Calculated Osmolality 302 (280-300) H 06/19/17 04:56 Phosphorus 5.7 mg/dL (2.7-4.5) H 06/18/17 05:24 Serum Total Protein 5.2 g/dL (6.4-8.9) L 06/18/17 05:24 Albumin 3.1 g/dL (3.5-5.7) L 06/18/17 05:24 Globulin 2.1 g/dL (2.4-3.5) L 06/18/17 05:24 Consult Discharge Plan - Plan Referrals: Huey Ortega MD [Primary Care Provider] -
[2017-06-19] MEDS ORDERED: Potassium Chloride 40 MEQ, Lidocaine 1% 2 ML in D5% in Water 500 ML IVPB ONE (09:04)
[2017-06-19] MEDS ORDERED: 0.9 % Sodium Chloride 250 ML IVC PRN (09:06)
--- NOTE | 2017-06-19 09:09 | Internal Med Progress Note ---
Date of Encounter: 06/19/17 Time of Encounter: 09:06 - Assessment and plan (1) CVA (cerebral vascular accident) Current Visit: Yes Status: Acute Assessment and plan: CT head is negative 2. Neurology is consulted and recs appreciated. Continue aspirin, Plavix, statin. MRI brain pending. Echo pending read. carotid Dopplers prelim with no disease. Neuro checks. PTOT. Speech eval. Allow for permissive hypertension. Qualifiers: CVA mechanism: unspecified Qualified Code(s): I63.9 - Cerebral infarction, unspecified (2) Seizures Current Visit: Yes Status: Acute Assessment and plan: CT head is negative. MRI pending. EEG pending. Neurology has been consulted and dont believe she needs anti-epileptics in the setting of elevated BP and hyperglycemia. Received Keppra 1000 mg but now stopped. No history of seizures. (3) ESRD (end stage renal disease) on dialysis Current Visit: No Status: Chronic Assessment and plan: Nephrology consulted. Plans for dialysis per them. correct electrolytes with HD. (4) Diabetes mellitus Current Visit: No Status: Chronic Assessment and plan: glucose in the 30s this morning and started of D5. Has been switched to subcutaneous insulin now. A1c 11.1. [place] PO intake. cut down levemir in half to 20 units QHS. Continue Accu-Cheks. Continue SSI. Qualifiers: Diabetes mellitus type: type 2 Diabetes mellitus ad terminal makeup operator insulin use: with ad terminal makeup operator use Diabetes mellitus complication status: with kidney complications Diabetes mellitus complication detail: with chronic kidney disease Chronic kidney disease stage: on chronic dialysis Qualified Code(s) : E11.22 - Type 2 diabetes mellitus with diabetic chronic kidney disease; N18.6 - End stage renal disease; Z99.2 - Dependence on renal dialysis; Z99.2 - Dependence on renal dialysis; Z99.2 - Dependence on renal dialysis; N18.6 - End stage renal disease; N18.6 - End stage renal disease; N18.6 - End stage renal disease; Z79.4 - ad terminal makeup operator (current) use of insulin; Z79.4 - ad terminal makeup operator (current ) use of insulin; Z79.4 - ad terminal makeup operator (current) use of insulin; Z79.4 - snf (current) use of insulin; Z99.2 - Dependence on renal dialysis (5) Hypertension Current Visit: Yes Status: Chronic Assessment and plan: Allow For permissive hypertension for now. Her blood pressures in the 170s systolically. Patient is on clonidine and Norvasc at home. Qualifiers: Hypertension type: unspecified Qualified Code(s): I10 - Essential (primary ) hypertension (6) CAD (coronary artery disease) Current Visit: Yes Status: Acute Assessment and plan: Patient has refused left heart catheterizations in the past. This was noted on a cardiology consult back in October 2016. We will continue with aspirin, statin , Plavix, Coreg, Imdur. Qualifiers: Coronary Disease-Associated Artery/Lesion type: [place] artery [place] vs. transplanted heart: [place] heart Associated angina: without angina Qualified Code(s): I25.10 - Atherosclerotic heart disease of [place] coronary artery without angina pectoris (7) DVT prophylaxis Current Visit: No Status: Acute Assessment and plan: Heparin subcutaneous. - Time Spent With Patient Total time spent is greater than 50% in coordination of care (as documented) at patient's floor/unit and/or counseling patient: - Subjective Interval history: Patient was seen and examined. glucose 38 this morning that was treated per protocol. Had hypoglycemic symptoms Admitted to the ICU initially with right- sided weakness in arms and legs and word finding difficulty. On initial presentation was found to have elevated blood pressure in the 200s systolically. I see a blood pressure reading as high as 231/104 initially. The patient was given Lopressor with a blood pressure coming down. The patient' s symptoms may have started about 7 days ago. She was outside of any TPA window. CT head was negative. Had an episode of witnessed seizure in the ED for which she was given Ativan. Also noted to have hyperglycemia with a glucose in the 600s. - Constitutional Vitals: Temp Pulse Resp BP Pulse Ox 98 F 50 16 168/83 100 06/19/17 06:59 06/19/17 06:59 06/19/17 06:59 06/19/17 06:59 06/19/17 06:59 General appearance: Present: A&O X 2, pleasant, no acute distress Exam: GEN: NAD CVS: RRR. S1, S2, No m/r/g RESP: CTAB ABD: Soft, NT, ND, +BS EXT: No edema. 2+ DP. No rashes NEURO: Nonfocal Internal Medicine: Result - Labs CBC & Chem 7: 06/19/17 04:56 06/19/17 04:56 Labs: Short CBC 06/19/17 Range/Units 04:56 WBC 6.4 (4.3-11.1) K/mcL Hgb 12.4 D (11.5-15.4) g/dL Hct 37.2 (35.3-44.9) % Plt Count 213 (140-400) K/mcL Neutrophils # 4.9 (1.6-8.9) K/mcL BMP 06/19/17 04:56 Sodium 143 Potassium 2.8 L Chloride 106 Carbon Dioxide 25 BUN 40 H Creatinine 5.39 H Glucose 38 L* Calcium 9.0 - VTE Documentation of Mechanical Device: Intermittent pneumatic compression device Consult Discharge Plan - Plan Referrals: Huey Ortega MD [Primary Care Provider] -
[2017-06-19] MEDS ORDERED: 0.9 % Sodium Chloride 1,000 ML PRIME SCH (09:15)
--- NOTE | 2017-06-19 17:00 | EEG/EMG/Oth Biometrics Report ---
EEG Procedure Report Date of procedure: 06/19/17 EEG Procedure: Routine EEG Procedure Note: Routine 21-channel digital EEG performed and recorded utilizing the standard international 10-20 electrode placement system. FINDINGS: This patient has predominant waking background rhythm which is well- organized, well-developed, average voltage 8 to 10 hertz alpha activity in the posterior regions, symmetrical over the both hemispheres reactive to eye opening and closing, and it is bilaterally synchronous. No [id number] discharges or any lateralizing abnormalities are seen. Photic stimulation and hyperventilation did not produce any convulsive response. No abnormalities were found during the procedure. Intermittent EMG artifacts were seen. Stage II sleep was not achieved. IMPRESSION: Normal awake/ drowsy electroencephalogram. No epileptiform discharges or any other paroxysmal activities or focal abnormalities seen. (Please note that normal EEG does not exclude the diagnosis of seizure or epilepsy, Clinical correlation is recommended.
[2017-06-19] MEDS ORDERED: 0.9 % Sodium Chloride 1,000 ML ONE (17:15)
--- NOTE | 2017-06-19 17:31 | Nephrology Progress Note ---
Date of Encounter: 06/19/17 Time of Encounter: 12:00 - Assessment and Plan (1) ESRD (end stage renal disease) on dialysis Current Visit: No Status: Chronic Will dialyze today with UF goal of 2-3kg with higher potassium bath for potassium of 2.8 Continue renal diet (2) Hyperglycemia Current Visit: Yes Status: Acute Per primary team (3) Seizures Current Visit: Yes Status: Acute per neurology Subjective Interval history: Pt seen and examined feeling much better overall. No overnight issues. no more seizure activity. Objective - Vital Signs Vital signs: Vital Signs Temp Pulse Resp BP Pulse Ox 06/19/17 17:15 162/76 06/19/17 17:00 173/76 06/19/17 16:45 166/75 06/19/17 16:30 172/75 06/19/17 16:15 172/82 06/19/17 16:00 97.5 F L 20 167/77 06/19/17 10:40 97.4 F L 56 18 167/78 100 06/19/17 06:59 98 F 50 16 168/83 100 06/19/17 05:35 51 186/80 93 06/19/17 01:05 97.8 F 57 18 163/75 98 06/18/17 19:16 98.8 F 65 18 150/76 91 Intake and Output 06/19/17 06/19/17 06/19/17 07:59 15:59 23:59 Intake Total 600 / 600 Balance 600 / 600 Intake: Intake, Rinseback and Flushes 600 / 600 Other: Blood Glucose* 122 392 377 Hemodialysis Net Fluid Removed 1495 (mL) - General Appearance General appearance: Present: chronically ill (NAD) EENT: Present: ATNC, mucous membranes moist Neck: Present: no JVD, supple Respiratory: Present: clear Cardiology: Present: no edema, normal S1, normal S2 Gastrointestinal: Present: no tenderness, no guarding Integumentary: Present: warm and dry Neurologic: Present: no focal deficit Musculoskeletal: Present: no deformities Psychiatric: Present: cooperative - Lab 06/19/17 04:56 06/19/17 04:56 Most recent lab results Calcium 9.0 mg/dL (8.6-10.3) 06/19/17 04:56 Phosphorus 5.7 mg/dL (2.7-4.5) H 06/18/17 05:24 Magnesium 2.0 mg/dL (1.6-2.6) 06/19/17 04:56 - VTE Documentation of Mechanical Device: Intermittent pneumatic compression device Consult Discharge Plan - Plan Referrals: Huey Ortega MD [Primary Care Provider] -
[2017-06-19] MEDS ORDERED: Insulin DETEMIR 100 UNIT/ML X5UNITS SQ SCH (21:00)
[2017-06-19] MEDS: Latanoprost 2.5 ML BOTTLE RIGHT EYE SCH (21:46)
[2017-06-20] MEDS: cloNIDine HCl 0.1 MG TABLET PO SCH ×3 (07:07→22:48)
[2017-06-20] MEDS: Aspirin Enteric Coated 81 MG Tablet PO SCH (07:07)
[2017-06-20] MEDS: Cholecalciferol (D-3) 1,000 UNIT TABLET PO SCH (07:07)
[2017-06-20] MEDS: *HR* Heparin 5,000 UNIT/ML VIAL SQ SCH ×3 (07:08→22:48)
[2017-06-20] MEDS: Insulin LISPRO 300 UNITS/3 ML VIAL SQ SCH ×6 (07:08→22:49)
[2017-06-20] MEDS: amLODIPine 5 MG TABLET PO SCH (07:08)
[2017-06-20] MEDS: Isosorbide MONOnitrate (24 HR) 30 MG TAB.ER.24H PO SCH (07:08)
--- NOTE | 2017-06-20 08:20 | Internal Med Progress Note ---
Date of Encounter: 06/20/17 Time of Encounter: 08:15 - Assessment and plan (1) CVA (cerebral vascular accident) Current Visit: Yes Status: Acute Assessment and plan: CT head is negative 2. MRI brain neg. Neurology is consulted and recs appreciated. Continue aspirin, Plavix, statin. MRI brain pending. Echo pending read. carotid Dopplers prelim with no disease. Neuro checks. PTOT. Speech eval. Allow for permissive hypertension. Qualifiers: CVA mechanism: unspecified Qualified Code(s): I63.9 - Cerebral infarction, unspecified (2) Seizures Current Visit: Yes Status: Acute Assessment and plan: CT head is negative. MRI neg. EEG normal Neurology has been consulted and dont believe she needs anti-epileptics in the setting of elevated BP and hyperglycemia. Received Keppra 1000 mg but now stopped. No history of seizures. (3) ESRD (end stage renal disease) on dialysis Current Visit: No Status: Chronic Assessment and plan: Nephrology consulted. Plans for dialysis per them. correct electrolytes with HD. (4) Diabetes mellitus Current Visit: No Status: Chronic Assessment and plan: glucose in the 30s yesterday and I cut down insulin to 20 units QHS from 40 units. Now her glucose in the 200s this morning and was in the 300s all day yesterday. Will increase levemir to 30 units. Will add prandial coverage. . Continue Accu-Cheks. Continue SSI. Qualifiers: Diabetes mellitus type: type 2 Diabetes mellitus prison insulin use: with prison use Diabetes mellitus complication status: with kidney complications Diabetes mellitus complication detail: with chronic kidney disease Chronic kidney disease stage: on chronic dialysis Qualified Code(s) : E11.22 - Type 2 diabetes mellitus with diabetic chronic kidney disease; N18.6 - End stage renal disease; Z99.2 - Dependence on renal dialysis; Z99.2 - Dependence on renal dialysis; Z99.2 - Dependence on renal dialysis; N18.6 - End stage renal disease; N18.6 - End stage renal disease; N18.6 - End stage renal disease; Z79.4 - tank terminal gauger (current) use of insulin; Z79.4 - long-term (current ) use of insulin; Z79.4 - long-term (current) use of insulin; Z79.4 - long-term (current) use of insulin; Z99.2 - Dependence on renal dialysis (5) Hypertension Current Visit: Yes Status: Chronic Assessment and plan: BP is still elevated. Will add hydralazine 25 mg TID. c/w coreg/norvasc/ clonidine. Qualifiers: Hypertension type: unspecified Qualified Code(s): I10 - Essential (primary ) hypertension (6) CAD (coronary artery disease) Current Visit: Yes Status: Acute Assessment and plan: Patient has refused left heart catheterizations in the past. This was noted on a cardiology consult back in October 2016. We will continue with aspirin, statin , Plavix, Coreg, Imdur. Qualifiers: Coronary Disease-Associated Artery/Lesion type: [place] artery [place] vs. transplanted heart: platinum heart Associated angina: without angina Qualified Code(s): I25.10 - Atherosclerotic heart disease of [place] coronary artery without angina pectoris (7) DVT prophylaxis Current Visit: No Status: Acute Assessment and plan: Heparin subcutaneous. - Time Spent With Patient Total time spent is greater than 50% in coordination of care (as documented) at patient's floor/unit and/or counseling patient: - Subjective Interval history: Patient was seen and examined. glucose is in the 200s now. Was in the 30s yesterday and I cut down on her basal insulin. Afebrile. BP uncontrolled. Admitted to the ICU initially with right-sided weakness in arms and legs and word finding difficulty. On initial presentation was found to have elevated blood pressure in the 200s systolically. I see a blood pressure reading as high as 231/104 initially. The patient was given Lopressor with a blood pressure coming down. The patient's symptoms may have started about 7 days ago. She was outside of any TPA window. CT head was negative. Had an episode of witnessed seizure in the ED for which she was given Ativan. Also noted to have hyperglycemia with a glucose in the 600s. - Constitutional Vitals: Temp Pulse Resp BP Pulse Ox 98.3 F 66 17 166/76 100 06/20/17 06:52 06/20/17 06:52 06/20/17 06:52 06/20/17 06:52 06/20/17 06:52 General appearance: Present: A&O X 2, pleasant, no acute distress Exam: GEN: NAD CVS: RRR. S1, S2, No m/r/g RESP: CTAB ABD: Soft, NT, ND, +BS EXT: No edema. 2+ DP. No rashes NEURO: Nonfocal Internal Medicine: Result - Labs CBC & Chem 7: 06/19/17 04:56 06/19/17 04:56 - Impressions Impressions Echocardiogram 06/17/17 22:38 Impressions: LVEF 60%. Mild concentric left ventricular hypertrophy. Diastolic dysfunction with elevated filling pressures. Normal right ventricular structure and function. Mild mitral regurgitation. Mild tricuspid regurgitation. No pulmonary hypertension. No evidence of PFO with agitated saline contrast. Left Ventricular Wall Motion: Rest Echo Findings All wall segments showed normal motion. Findings: Study Quality * Technically adequate exam. ECG Findings * Sinus bradycardia. Left Ventricle * LVEF 60%. * Mild concentric left ventricular hypertrophy. * Diastolic dysfunction with elevated filling pressures. Right Ventricle * Normal right ventricular structure and function. Left Atrium * Mildly dilated left atrium. Right Atrium * Normal right atrial size. Mitral Valve * Normal mitral valve structure. * No mitral stenosis. * Mild mitral annular calcification * Mild mitral regurgitation. Aortic Valve * No aortic regurgitation. * Trileaflet aortic valve. * No aortic stenosis. Tricuspid Valve * Normal tricuspid valve structure. * Mild tricuspid regurgitation. * Estimated RA pressure is 3 mmHg. * Estimated RVSP is 26 mmHg. * No pulmonary hypertension. Pulmonic Valve * Pulmonic valve is not well visualized. * No pulmonic stenosis. * No pulmonic regurgitation. Pulmonary Artery * Pulmonary artery not well visualized. Aorta * Normally sized aortic root. Pericardium * There is no pericardial effusion present. Interatrial Septum * No evidence of PFO by color Doppler. * No evidence of PFO with agitated saline contrast. IVC * Normal IVC dimensions and inspiratory collapse. Brain MRI 06/19/17 19:17 IMPRESSION: 1. No acute infarct or findings to explain the patient's possible seizure activity. 2. Two nonspecific foci of white matter signal abnormality within the deep white matter of the frontal lobes. Although nonspecific, these are likely of doubtful clinical significance. D/ / Luis Lo MD / Luis Lo MD Interpreting Provider: Luis Lo MD - VTE Documentation of Mechanical Device: Intermittent pneumatic compression device Consult Discharge Plan - Plan Referrals: Huey Ortega MD [Primary Care Provider] -
[2017-06-20 08:53] LABS: Basophils % 0.6 %; Eosinophils # 0.1 K/mcL (0.0-0.6); Eosinophils % 2.3 %; Hematocrit 35.7 % (35.3-44.9); Hemoglobin 11.5 g/dL (11.5-15.4); Immature Granulocytes % 0.4 % (0-4); Lymphocytes # 1.1 K/mcL (0.6-4.6); Lymphocytes % 22.5 %; Mean Corpuscular HGB Conc 32.2 g/dL (31.6-35.5); Mean Corpuscular Hemoglobin 28.9 pg (28.0-33.3); Mean Corpuscular Volume 89.7 fL (83.0-100.0); Mean Platelet Volume 10.5 fL (9.4-12.4); Monocytes # 0.4 K/mcL (0.0-1.3); Monocytes % 7.2 %; Neutrophils # 3.3 K/mcL (1.6-8.9); Platelet Count 188 K/mcL (140-400); Red Blood Count 3.98 M/mcL (3.82-4.97); Red Cell Distribution Width 14.6 % (11.5-14.5)
[2017-06-20] MEDS: Insulin DETEMIR 100 UNIT/ML X5UNITS SQ SCH (08:56)
[2017-06-20 09:16] LABS: Calcium 8.8 mg/dL (8.6-10.3); Magnesium 1.8 mg/dL (1.6-2.6); Potassium 3.5 mEq/L (3.5-5.1)
[2017-06-20] MEDS: D5% in 0.9% NACL 1,000 ML IVC SCH (13:29)
[2017-06-20] MEDS: hydrALAZINE 25 MG TABLET PO PRN (17:47)
[2017-06-20 21:09] LABS: Amphetamines NEGATIVE ng/mL (Cutoff 30); Barbiturates NEGATIVE ng/mL (Cutoff 75); Benzodiazepines NEGATIVE ng/mL (Cutoff 75); Cocaine NEGATIVE ng/mL (Cutoff 30); Methadone NEGATIVE ng/mL (Cutoff 40); Methamphetamines NEGATIVE ng/mL (Cutoff 30); Opiates NEGATIVE ng/mL (Cutoff 30); Phencyclidine NEGATIVE ng/mL (Cutoff 15)
[2017-06-20] MEDS: Latanoprost 2.5 ML BOTTLE RIGHT EYE SCH (22:49)
--- NOTE | 2017-06-20 22:59 | Nephrology Progress Note ---
Date of Encounter: 06/20/17 Time of Encounter: 12:00 - Assessment and Plan (1) ESRD (end stage renal disease) on dialysis Current Visit: No Status: Chronic s/p HD yesterday, next HD tomorrow Lytes WNL continue renal diet (2) Hyperglycemia Current Visit: Yes Status: Acute Per primary team (3) Seizures Current Visit: Yes Status: Acute per neurology Subjective Interval history: Pt seen and examined feeling back to baseline. s/p HD yesterday. No overnight issues. no more seizure activity. Objective - Vital Signs Vital signs: Vital Signs Temp Pulse Resp BP Pulse Ox 06/20/17 20:27 98.1 F 66 16 143/66 96 06/20/17 17:45 189/79 06/20/17 15:23 97.4 F L 79 15 178/71 91 06/20/17 10:40 99.1 F 62 17 123/68 94 06/20/17 06:52 98.3 F 66 17 166/76 100 06/20/17 04:20 98 F 67 17 163/65 100 06/20/17 00:29 98.6 F 60 17 150/69 99 Intake and Output 06/20/17 06/20/17 06/20/17 07:59 15:59 23:59 Intake Total 720 / 720 Balance 720 / 720 Intake: Oral 720 / 720 Other: Meal Lunch Percent of Meal Consumed 95% Stool Size Large Stool Consistency formed Stool Color Brown # Voids 1 # Bowel Movements 1 Weight 70.364 kg Blood Glucose* 292 85 236 Patient Weight 06/20/17 23:59 Weight 70.364 kg - General Appearance General appearance: Present: chronically ill (NAD) EENT: Present: ATNC, mucous membranes moist Neck: Present: no JVD, supple Respiratory: Present: clear Cardiology: Present: no edema, normal S1, normal S2 Dialysis Vascular Access: Arteriovenous Fistula thrill: Yes bruit: Yes Gastrointestinal: Present: no tenderness, no guarding Integumentary: Present: warm and dry Neurologic: Present: no focal deficit Musculoskeletal: Present: no deformities Psychiatric: Present: mood/affect appropriate - Lab 06/20/17 08:27 06/20/17 08:27 Most recent lab results Calcium 8.8 mg/dL (8.6-10.3) 06/20/17 08:27 Phosphorus 5.7 mg/dL (2.7-4.5) H 06/18/17 05:24 Magnesium 1.8 mg/dL (1.6-2.6) 06/20/17 08:27 - VTE Documentation of Mechanical Device: Intermittent pneumatic compression device Consult Discharge Plan - Plan Referrals: Huey Ortega MD [Primary Care Provider] - 06/27/17 2:20 pm (Please follow up as schedule..)
[2017-06-21] MEDS: Insulin DETEMIR 100 UNIT/ML X5UNITS SQ SCH (00:23)
[2017-06-21] MEDS: hydrALAZINE 25 MG TABLET PO PRN (05:24)
[2017-06-21 06:40] LABS: Basophils % 0.6 %; Eosinophils # 0.1 K/mcL (0.0-0.6); Eosinophils % 2.2 %; Hematocrit 33.1 % (35.3-44.9); Hemoglobin 10.9 g/dL (11.5-15.4); Immature Granulocytes % 1.2 % (0-4); Lymphocytes # 1.4 K/mcL (0.6-4.6); Lymphocytes % 28.5 %; Mean Corpuscular HGB Conc 32.9 g/dL (31.6-35.5); Mean Corpuscular Hemoglobin 29.1 pg (28.0-33.3); Mean Corpuscular Volume 88.5 fL (83.0-100.0); Mean Platelet Volume 11.2 fL (9.4-12.4); Monocytes # 0.5 K/mcL (0.0-1.3); Monocytes % 10.7 %; Neutrophils # 2.9 K/mcL (1.6-8.9); Platelet Count 168 K/mcL (140-400); Red Blood Count 3.74 M/mcL (3.82-4.97); Red Cell Distribution Width 14.1 % (11.5-14.5); Segmented Neutrophils % 56.8 %
[2017-06-21] MEDS: Insulin LISPRO 300 UNITS/3 ML VIAL SQ SCH ×6 (07:58→17:44)
[2017-06-21] MEDS: Cholecalciferol (D-3) 1,000 UNIT TABLET PO SCH (07:59)
[2017-06-21] MEDS: Aspirin Enteric Coated 81 MG Tablet PO SCH (07:59)
[2017-06-21] MEDS: amLODIPine 5 MG TABLET PO SCH (07:59)
[2017-06-21] MEDS: Isosorbide MONOnitrate (24 HR) 30 MG TAB.ER.24H PO SCH (07:59)
[2017-06-21] MEDS: *HR* Heparin 5,000 UNIT/ML VIAL SQ SCH ×2 (07:59→17:44)
[2017-06-21] MEDS: cloNIDine HCl 0.1 MG TABLET PO SCH ×2 (07:59→17:43)
[2017-06-21] MEDS ORDERED: 0.9 % Sodium Chloride 1,000 ML ONE (08:22)
[2017-06-21 08:29] LABS: Calcium 8.7 mg/dL (8.6-10.3); Magnesium 1.8 mg/dL (1.6-2.6); Potassium 3.6 mEq/L (3.5-5.1)
--- NOTE | 2017-06-21 08:55 | Physician Discharge Referral ---
Home Health/Hosp Referral Info Transfer to: Home Health - Diagnosis (1) CVA (cerebral vascular accident) Priority: Secondary Status: Acute (2) Seizures Priority: Primary Status: Acute (3) ESRD (end stage renal disease) on dialysis Priority: Secondary Status: Chronic (4) Diabetes mellitus Priority: Secondary Status: Chronic (5) Hypertension Priority: Secondary Status: Chronic (6) CAD (coronary artery disease) Priority: Secondary Status: Acute - Respiratory Orders Smoking Cessation: Smoking cessation has been advised. For more information, call the [place] Tobacco Quit Line at 3-680-MHIE-NOW. - Services Needed Following services are medically necessary services: Home Health Aide - Transfer Medications Prescriptions: hydrALAZINE [HydrALAZINE] 25 mg PO Q8HR #90 tablet Home Medications: Aspirin [Lo-Dose Aspirin EC] 81 mg PO DAILY 11/02/16 [History] Carvedilol [Coreg] 12.5 mg BID 11/02/16 [History] Cholecalciferol (D-3) [Vitamin D] 2,000 unit PO DAILY 11/02/16 [History] Insulin Glargine [Lantus] 45 - 50 unit SQ QPM 11/02/16 [History] Insulin LISPRO [HumaLOG] 1 - 8 unit SQ TID PRN 11/02/16 [History] Isosorbide MONOnitrate (24 HR) [Imdur] 30 mg PO DAILY 11/02/16 [History] amLODIPine [Norvasc] 10 mg PO DAILY 11/02/16 [History] Clopidogrel [Plavix] 75 mg PO DAILY 11/03/16 [History] Lidocaine/Prilocaine CREAM [Emla] 1 appl TP AD PRN 11/03/16 [History] Acetaminophen [Tylenol] 650 mg PO Q6HR PRN #120 tab 11/09/16 [Rx] Phosphorus #1 [K-Phos Neutral Tablet] 250 mg PO DAILY 05/25/17 [History] cloNIDine HCl [CloNIDine HCl] 0.3 mg PO TID #90 tablet 05/28/17 [Rx] Atorvastatin [Lipitor] 40 mg PO QPM 06/17/17 [History] Latanoprost [Xalatan] 1 drop RIGHT EYE HS 06/17/17 [History] hydrALAZINE [HydrALAZINE] 25 mg PO Q8HR #90 tablet 06/21/17 [Rx] Allergies/Adverse Reactions: 3 Allergy/AdvReac Type Severity Reaction Status Date / Time Erythromycin Base Allergy Intermediate Itching Verified 05/25/17 09:51 fluoxetine Allergy Hives Verified 05/25/17 12:21 Hydralazine Allergy Hives Verified 05/25/17 09:51 Certification: Further, I certify that my clinical findings support that this patient is homebound (i.e. absences from home require considerable and taxing effort and are for medical reasons or yazidism services or infrequently or short duration when for other reasons) because: Homebound Reason: Patient requires assistance of a person or device to safely leave home Attestation: My signature below is to certify that this patient is under my care and that I, or nurse practitioner, or a physician's foundation assistant working with me, has a face-to -face encounter with this patient.
--- NOTE | 2017-06-21 08:58 | Discharge Summary ---
- NOTES TO OUTPATIENT PROVIDER Notes to Outpatient Provider: f/u on blood pressure. Blood pressure is up and down and mostly uncontrolled. Hydralazine added here and may need to be uptitrated Date of Encounter: 06/21/17 Time of Encounter: 08:56 - Discharge Diagnosis (1) Seizures Priority: Primary Status: Acute (2) ESRD (end stage renal disease) on dialysis Priority: Secondary Status: Chronic (3) Diabetes mellitus Priority: Secondary Status: Chronic Qualifiers: Diabetes mellitus type: type 2 Diabetes mellitus fdc insulin use: with extermination supervisor use Diabetes mellitus complication status: with kidney complications Diabetes mellitus complication detail: with chronic kidney disease Chronic kidney disease stage: on chronic dialysis Qualified Code(s) : E11.22 - Type 2 diabetes mellitus with diabetic chronic kidney disease; N18.6 - End stage renal disease; N18.6 - End stage renal disease; N18.6 - End stage renal disease; N18.6 - End stage renal disease; Z79.4 - truck terminal manager (current) use of insulin; Z79.4 - alf (current) use of insulin; Z79.4 - truck terminal manager ( current) use of insulin; Z79.4 - alf (current) use of insulin; Z99.2 - Dependence on renal dialysis; Z99.2 - Dependence on renal dialysis; Z99.2 - Dependence on renal dialysis; Z99.2 - Dependence on renal dialysis (4) Hypertension Priority: Secondary Status: Chronic Qualifiers: Hypertension type: unspecified Qualified Code(s): I10 - Essential (primary ) hypertension (5) CAD (coronary artery disease) Priority: Secondary Status: Acute Qualifiers: Coronary Disease-Associated Artery/Lesion type: [place] artery [place] vs. transplanted heart: [place] heart Associated angina: without angina Qualified Code(s): I25.10 - Atherosclerotic heart disease of [place] coronary artery without angina pectoris Hospital course: Ms. Giraldo is a 66 year old female with medical history of diabetes, hypertension , hyperlipidemia, valvular heart disease, end-stage renal disease on dialysis Monday whot was brought to the emergency room by her family members as patient had a slurred speech and decreased movement on the right side. Symptoms have been going on for about 7 days which made her outside of any TPA window. She had a CT had which was negative 2. An MRI was also negative. She was noted to have a possible seizure activity in the ED for which she was given Ativan. Initially started on Keppra but then taken off that after evaluation by neurology. She was noted to have a systolic blood pressure in the 200s with hyperglycemia in the 600s She has CT head was done along with a basic labs. A nitroglycerin drip was initially started however that was tapered off and she was restarted on her blood pressure medication. I added hydralazine to her discharge medication. She was resumed on dialysis per schedule. Regarding her presentation neurology believed that she possibly could have had a seizure episode however they did not start epileptic as they thought it may have been provoked by elevated blood pressure and hyperglycemia. An EEG was done which was normal. An echocardiogram was done showing EF of 60 % with mild LVH and diastolic dysfunction. Carotids ultrasound showed nonstenotic plaque. The patient was eventually discharged on 06/21 in a stable condition. - Time Spent with Patient Total time spent providing and/or coordinating discharge services: Greater than 30 minutes - Discharge Medications Prescriptions: hydrALAZINE [HydrALAZINE] 25 mg PO Q8HR #90 tablet Home Medications: Aspirin [Lo-Dose Aspirin EC] 81 mg PO DAILY 11/02/16 [History] Carvedilol [Coreg] 12.5 mg BID 11/02/16 [History] Cholecalciferol (D-3) [Vitamin D] 2,000 unit PO DAILY 11/02/16 [History] Insulin Glargine [Lantus] 45 - 50 unit SQ QPM 11/02/16 [History] Insulin LISPRO [HumaLOG] 1 - 8 unit SQ TID PRN 11/02/16 [History] Isosorbide MONOnitrate (24 HR) [Imdur] 30 mg PO DAILY 11/02/16 [History] amLODIPine [Norvasc] 10 mg PO DAILY 11/02/16 [History] Clopidogrel [Plavix] 75 mg PO DAILY 11/03/16 [History] Lidocaine/Prilocaine CREAM [Emla] 1 appl TP AD PRN 11/03/16 [History] Acetaminophen [Tylenol] 650 mg PO Q6HR PRN #120 tab 11/09/16 [Rx] Phosphorus #1 [K-Phos Neutral Tablet] 250 mg PO DAILY 05/25/17 [History] cloNIDine HCl [CloNIDine HCl] 0.3 mg PO TID #90 tablet 05/28/17 [Rx] Atorvastatin [Lipitor] 40 mg PO QPM 06/17/17 [History] Latanoprost [Xalatan] 1 drop RIGHT EYE HS 06/17/17 [History] hydrALAZINE [HydrALAZINE] 25 mg PO Q8HR #90 tablet 06/21/17 [Rx] Allergies/Adverse Reactions: 3 Allergy/AdvReac Type Severity Reaction Status Date / Time Erythromycin Base Allergy Intermediate Itching Verified 05/25/17 09:51 fluoxetine Allergy Hives Verified 05/25/17 12:21 Hydralazine Allergy Hives Verified 05/25/17 09:51 Date of admission: 06/17/17 22:03 Primary care physician: Huey Ortega MD Consults: 06/17/17 22:37 Consult to Neurology [CONS] Routine Consulting Provider: Neurology [facility] Reason for Consult: ?Seizure Call Completed: Yes 06/17/17 23:11 Consult to Nutrition [CONS] Routine Comment: Consulting Provider: NUTRITION Reason for Dietary Consult: MST Score 06/17/17 23:15 Consult to Nephrology [CONS] Routine Consulting Provider: [facility]/LUIS MIGUEL/DEEPA/SEBAS Reason for Consult: ESRD on HD with sizure. Call Completed: Yes 06/19/17 09:15 Consult to Dialysis [CONS] ONCE 06/19/17 10:58 Consult to Interpret Exam [CONS] Routine Consulting Provider: Maikel Edwards I Consult to Interpret Exam: Interpret EEG 06/20/17 08:14 Consult to Occupational Therapy [CONS] Routine Comment: Evaluate, develop and implement POC Reason for Consult: therapy/placement needs Does patient have active BEDREST order?: No Is patient medically & hemodynamically stable?: Yes Consult to Physical Therapy [CONS] Routine Comment: Evaluate, develop and implement POC Reason for Consult: PT eval Does patient have active BEDREST order?: No Is patient medically & hemodynamically stable?: Yes - Constitutional Vitals: Temp Pulse Resp BP Pulse Ox 97.8 F 60 17 175/80 99 06/21/17 07:02 06/21/17 07:02 06/21/17 07:02 06/21/17 07:02 06/21/17 07:02 General appearance: Present: A&O X 2, pleasant, no acute distress Exam: GEN: NAD CVS: RRR. S1, S2, No m/r/g RESP: CTAB ABD: Soft, NT, ND, +BS EXT: No edema. 2+ DP. No rashes NEURO: Nonfocal - Patient Status Disposition: Home Health Service Condition: Fair Overall status at discharge: patient is progressing back to baseline - Discharge Instructions Follow Up With: Huey Ortega MD [Primary Care Provider] - 06/27/17 2:20 pm (Please follow up as schedule..) Forms: ED Satisfaction Letter - Diet and Activity Activity: increase activity as tolerated Diet: diabetic diet, low salt diet - VTE Documentation of Mechanical Device: Intermittent pneumatic compression device
[2017-06-21] MEDS ORDERED: 0.9 % Sodium Chloride 250 ML IVC PRN (09:00)
[2017-06-21] MEDS ORDERED: 0.9 % Sodium Chloride 1,000 ML PRIME SCH (09:00)
[2017-06-21] MEDS ORDERED: *HR* Heparin 5,000 UNIT/ML VIAL ONE (14:37)
[2017-06-21] MEDS: hydrALAZINE 25 MG TABLET PO SCH ×2 (15:20→17:43)
[2017-06-21 18:12] VITALS: BP 141/79
--- NOTE | 2017-06-21 23:05 | Nephrology Progress Note ---
Date of Encounter: 06/21/17 Time of Encounter: 12:00 - Assessment and Plan (1) ESRD (end stage renal disease) on dialysis Status: Chronic HD today with UF as tolreated Lytes WNL continue renal diet (2) Hyperglycemia Status: Acute Per primary team (3) Seizures Status: Acute per neurology Subjective Interval history: Pt seen and examined feeling back to baseline and eager to go home. HD planned today before discharge Objective - Vital Signs Vital signs: Vital Signs Temp Pulse Resp BP Pulse Ox 06/21/17 17:00 97.2 F L 15 141/79 06/21/17 16:50 121/84 06/21/17 16:35 120/70 06/21/17 16:20 130/71 06/21/17 16:05 123/70 06/21/17 15:50 124/63 06/21/17 15:35 122/64 06/21/17 15:20 119/63 06/21/17 15:05 112/65 06/21/17 14:50 118/61 06/21/17 14:35 119/60 06/21/17 14:20 123/63 06/21/17 14:05 133/65 06/21/17 13:50 97.8 F 17 146/65 06/21/17 11:54 97.3 F L 75 16 161/54 93 06/21/17 10:40 98.2 F 61 17 133/66 98 06/21/17 07:02 97.8 F 60 17 175/80 99 06/21/17 05:18 97.9 F 60 18 191/80 98 06/20/17 23:38 98.2 F 72 16 176/78 95 Intake and Output 06/21/17 06/21/17 06/21/17 07:59 15:59 23:59 Intake Total 240 / 240 960 / 960 120 / 120 Output Total 350 / 350 3600 / 3600 Balance -110 / -110 960 / 960 -3480 / -3480 Intake: Oral 240 / 240 360 / 360 120 / 120 Intake, Rinseback and Flushes 600 / 600 Output: Urine 350 / 350 0 / 0 Total Dialysis (HD) Output 3600 / 3600 Other: Meal Lunch Dinner Percent of Meal Consumed 100% 90% Weight 71.033 kg 71.033 kg Blood Glucose* 123 171 92 Hemodialysis Net Fluid Removed 2419 3000 (mL) Patient Weight 06/21/17 23:59 Weight 71.033 kg - General Appearance General appearance: Present: chronically ill EENT: Present: ATNC, mucous membranes moist Neck: Present: no JVD, supple Respiratory: Present: clear Cardiology: Present: no edema, normal S1, normal S2 Dialysis Vascular Access: Arteriovenous Fistula thrill: Yes bruit: Yes Gastrointestinal: Present: no tenderness, no guarding Integumentary: Present: warm and dry Neurologic: Present: no focal deficit Musculoskeletal: Present: no deformities Psychiatric: Present: mood/affect appropriate, cooperative - Lab 06/21/17 06:21 06/21/17 07:24 Most recent lab results Calcium 8.7 mg/dL (8.6-10.3) 06/21/17 07:24 Phosphorus 5.7 mg/dL (2.7-4.5) H 06/18/17 05:24 Magnesium 1.8 mg/dL (1.6-2.6) 06/21/17 07:24 - VTE Documentation of Mechanical Device: Intermittent pneumatic compression device Consult Discharge Plan - Plan Instructions: Chronic Hypertension (DC) Referrals: Huey Ortega MD [Primary Care Provider] - 06/27/17 2:20 pm (Please follow up as schedule..)
--- NOTE | 2017-06-23 11:42 | Electrocardiograph Report ---
[place] [id number] Test Date: 2017-06-17 Pat Name: Crystal Giraldo Department: 103 Room: [facility] Gender: F Engagement Manager: RASHIDA : 1950 Requested By: Wen Lopez Order Number: [id number] Reading MD: Casey Sotelo Measurements Intervals [place] Rate: 64 P: 55 UT: 160 QRS: 10 QRSD: 89 T: -1 QT: 473 QTc: 483 Interpretive Statements SINUS RHYTHM LEFT VENTRICULAR HYPERTROPHY AND ST-T CHANGE Electronically Signed On 06-23-2017 11:40:39 EDT by Casey Sotelo
== END 2017-06-21 18:30 | disposition home health service (06) | DRG 100 ==
LOC: EMEROO 13:19 → 2NNU 13:19 → ICNU 22:02 → 2ANU 06-18 11:32
PROVIDERS: ADMIT Internal Medicine; ATTEND Hospitalist

== ENCOUNTER 2017-12-27 14:29 | Inpatient (IN) ==
[2017-12-27] MEDS ORDERED: Dextrose Gel 15 GM/37.5 ML TUBE PO PRN ×2 (18:44)
[2017-12-27] MEDS ORDERED: *HR* Dextrose 50 % in Water (Syg) 50 ML SYRINGE IVP PRN (18:44)
[2017-12-27] MEDS ORDERED: D5% in Water 1,000 ML IVC PRN (18:44)
[2017-12-27] MEDS ORDERED: *HR* HYDROcodone/Acet 5/325 mg TABLET PO PRN (18:45)
[2017-12-27] MEDS ORDERED: Acetaminophen 325 MG TABLET PO PRN ×2 (18:45→22:43)
[2017-12-27] MEDS ORDERED: Naloxone 0.4 MG/ML INJ IVP PRN (18:45)
[2017-12-27 18:47] LABS: Basophils % 0.5 %; Eosinophils # 0.1 K/mcL (0.0-0.6); Eosinophils % 1.4 %; Hematocrit 30.3 % (35.3-44.9); Hemoglobin 10.2 g/dL (11.5-15.4); Immature Granulocytes % 0.3 % (0-4); Lymphocytes # 1.2 K/mcL (0.6-4.6); Lymphocytes % 19.5 %; Mean Corpuscular HGB Conc 33.7 g/dL (31.6-35.5); Mean Corpuscular Hemoglobin 28.7 pg (28.0-33.3); Mean Corpuscular Volume 85.4 fL (83.0-100.0); Mean Platelet Volume 10.9 fL (9.4-12.4); Monocytes # 0.4 K/mcL (0.0-1.3); Monocytes % 6.4 %; Neutrophils # 4.3 K/mcL (1.6-8.9); Platelet Count 170 K/mcL (140-400); Red Blood Count 3.55 M/mcL (3.82-4.97); Red Cell Distribution Width 12.6 % (11.5-14.5); Segmented Neutrophils % 71.9 %
[2017-12-27 18:59] LABS: Alanine Aminotransferase 14 Units/L (7-52); Albumin 3.6 g/dL (3.5-5.7); Albumin/Globulin Ratio 1.2 (1.1-2.2); Alkaline Phosphatase 112 Units/L (34-104); Aspartate Amino Transferase 12 Units/L (13-39); BUN/Creatinine Ratio 8 (6-26); Bilirubin,Total 0.5 mg/dL (0.3-1.0); Blood Urea Nitrogen 44 mg/dL (8-23); Calcium 8.4 mg/dL (8.6-10.3); Carbon Dioxide 23 mEq/L (23-29); Chloride 100 mEq/L (98-107); Globulin 2.9 g/dL (2.4-3.5); Glucose 239 mg/dL (70-105); Osmolality,Calculated 301 (280-300); Potassium 3.9 mEq/L (3.5-5.1); Sodium 136 mEq/L (136-145); Total Protein 6.5 g/dL (6.4-8.9); Troponin I < 0.03 ng/mL (< 0.04); eGFR For Non-African Americans 8 (> 60)
--- NOTE | 2017-12-27 19:16 | Internal Med History&Physical ---
<Ilia Landa - Last Filed: 12/27/17 23:57> Date of Encounter: 12/27/17 Time of Encounter: 18:00 Internal Medicine - H&P: HPI Chief complaint: CP/HTN Admitted From: Hospital to Hospital Transfer Plans for Post Hospital Care: Home History of present illness: Ms. Giraldo is a 67 year old female w/PMH of CHF, diabetes, ESRD on dialysis, heart murmur (left heart valve), HLD, HTN, and chronic anemia presents from [facility] w/CP that began prior to dialysis today. Pt. states that she has been having higher BP than usual recently. CP is centralized in chest w/o radiation. No alleviating or aggravating factors. Pt. states similar sx 4-5 years ago. Denies stent placement. Pt. is ESRD on hemodialysis and sees Dr. Sutherland. When arrived to [facility], pt. was on 44 mcg/min of nitro gtt that was st arted at [facility]. BP was 211/99 on arrival. Will titrate nitro drip down and begin nicardipine gtt per recommendations of Dr. Sutherland. Potassium 3.9 on admission. GFR 8 and creatinine 5.55. Plan is to dialyze tomorrow. Initial troponin <0.03. Pt. reports CP, weakness, and SOB but denies recent illness, fever, chills, nausea, vomiting, diaphoresis, recent vision, headache, cough, chest congestion, abdominal pain, diarrhea, constipation, dizziness, lightheadedness, numbness, tingling, pre-syncope, or syncope. Past Med Surg Social Fam HX - Past Medical History Source: patient, old records reviewed Medical history: CHF, diabetes, dialysis, hyperlipidemia, hypertension, renal disease, other (Chronic anemia, heart murmur (left heart valve defect)) Additional medical history: anemia Psychiatric history: no psych history - Past Surgical History Surgical History: cholecystectomy, hysterectomy (Partial) Additional surgical history: partial hysterectomy, left arm fistula - Social History Smoking Status: Never smoker Smokeless Tobacco Status: No Alcohol use: none Drug use: none Current living situation: Home Activity Level: Independent ambulation Recent Out of Country Travel Within the Last 8 Weeks: No Exposure or Possible Exposure to Illness During Travel: No - Family History Brother Race: Family Member Ethnicity: Non- Living Status: Age at : 65 Cause of : Colon cancer Hx Family Cancer: Yes (Colon) Father Race: Family Member Ethnicity: Non- Living Status: Age at : 69 Cause of : Alzheimers Hx Family Neurologic Disorders: Yes (Alzheimers) Mother Race: Family Member Ethnicity: Non- Living Status: Age at : 62 Cause of : Heart Attack Hx Family Cardiac Disorders: Yes (HTN, MO) Hx Family Endocrine Disorder: Yes (DM2) Sister Race: Family Member Ethnicity: Non- Living Status: Still Living Hx Family Medical Disorders: No Internal Medicine - H&P: Meds RX: Aspirin [Lo-Dose Aspirin EC] 81 mg PO DAILY 11/02/16 [History] RX: Cholecalciferol (D-3) [Vitamin D] 4,000 unit PO HS 11/02/16 [History] RX: Insulin Glargine [Lantus] 17 unit SQ HS 11/02/16 [History] RX: Insulin LISPRO [HumaLOG] 2 - 12 unit SQ TIDWM 11/02/16 [History] RX: Isosorbide MONOnitrate (24 HR) [Imdur] 30 mg PO DAILY 11/02/16 [History] RX: Clopidogrel [Plavix] 75 mg PO DAILY 11/03/16 [History] RX: Lidocaine/Prilocaine CREAM [Emla] 1 appl TP AD PRN 11/03/16 [History] RX: Acetaminophen [Tylenol] 650 mg PO Q6HR PRN #120 tab 11/09/16 [Rx] RX: Atorvastatin [Lipitor] 40 mg PO HS 06/17/17 [History] RX: Latanoprost [Xalatan] 1 drop RIGHT EYE HS 06/17/17 [History] RX: cloNIDine HCl [CloNIDine HCl] 0.3 mg PO BID 12/27/17 [History] RX: Carvedilol 6.25 mg PO SUTUTHSA 12/28/17 [History] RX: Carvedilol 12.5 mg PO SUTUTHSA 12/28/17 [History] RX: Lisinopril [Zestril] 20 mg PO DAILY 12/28/17 [History] RX: Sevelamer Carbonate [Renvela] 2.4 gm PO DAILY 12/28/17 [History] Allergy/AdvReac Type Severity Reaction Status Date / Time Erythromycin Base Allergy Intermediate Itching Verified 12/30/17 10:01 fluoxetine Allergy Hives Verified 12/30/17 10:01 Hydralazine Allergy Hives Verified 12/30/17 10:01 All Systems PM: A 10-system review of systems was performed and is negative for pertinent findings except as documented above in the HPI. - Constitutional Constitutional: as per HPI, weakness, no chills, no fever(s), no night sweats - EENT Eyes: no change in vision, no discharge, no pain, no photophobia Ears: no ear discharge, no ear pain, no tinnitus Nose, mouth and throat: no dysphagia, no nasal discharge, no neck pain, no sore throat - Breasts Breasts: as per HPI - Cardiovascular Cardiovascular ROS IM: as per HPI, chest pain, dyspnea, dyspnea on exertion, irregular heart rhythm (Heart murmur), no diaphoresis, no lightheadedness, no palpitations, no syncope - Respiratory Respiratory: as per HPI, dyspnea, dyspnea on exertion, no cough, no wheezing, no excessive phlegm production - Gastrointestinal Gastrointestinal: no abdominal pain, no diarrhea, no hematemesis, no hematochezia, no melena, no nausea, no vomiting - Genitourinary Genitourinary: no change in urinary stream, no dysuria, no flank pain, no hematu dottie Menstruation: as per HPI, post hysterectomy (Partial) - Musculoskeletal Musculoskeletal ROS IM: no numbness, no tingling - Integumentary Integumentary IM: no rash, no unusual bruising - Neurological Neurological ROS: no confusion, no convulsions, no focal weakness, no numbness, no tingling, no tremor(s) - Psychiatric Psychiatric: as per HPI - Endocrine Endocrine IM: as per HPI - Hematologic/Lymphatic Hematologic/Lymphatic: no easy bruising - Allergic/Immunologic Allergic/Immunologic: as per HPI - Constitutional Vitals: Temp Pulse Resp BP Pulse Ox 98.1 F 63 18 196/107 99 12/27/17 17:58 12/27/17 17:58 12/27/17 17:58 12/27/17 17:58 12/27/17 17:58 General appearance: Present: cooperative, mild distress (CP), A&O X 3, pleasant, obese, answers questions appropriately Exam: Pt. examined at bedside. BP 211/99 on nitro gtt @ 44 mcg/min. Will titrate down and stop and begin nicardipine gtt per Nephrology. CP 04/15. Denies any other symptoms at this time. Will monitor closely and move pt. from 2A to 2N for gtt. Plan is to dialyze tomorrow. - Head Head exam: Present: atraumatic, normocephalic - Eye Eye exam: Present: PERRL, conjuntiva pink, sclera anicteric Pupils: Present: PERRL - ENT ENT exam: Present: normal exam - Neck Neck exam general surgery: Present: supple, trachea midline. Absent: lymphadenopathy - Respiratory Respiratory exam: Present: CTAB. Absent: accessory muscle use, rales, rhonchi, wheezes - Cardiovascular Cardiovascular exam: Present: RRR, +S1, +S2. Absent: diastolic murmur, gallop, rubs, systolic murmur - GI/Abdominal GI/Abdominal exam: Present: normal bowel sounds, soft, no peritoneal signs. Absent: distended, tenderness - Rectal Rectal exam: Present: deferred - Additional comments: exam deferred. - Extremities Exam Extremities exam: Present: warm, radial pulses palpable and symmetrical. Absent: calf tenderness, cyanotic, pedal edema - Back Exam Back exam: Present: normal inspection - Neurological Exam Neurological exam: Present: alert, CN II-XII intact, oriented X3, no focal deficits. Absent: pronater drift, facial droop, speech deficit - Psychiatric Psychiatric exam: Present: normal affect, normal mood - Skin Skin exam: Present: dry, intact Internal Med - H&P Results - Labs CBC & Chem 7: 12/27/17 17:54 12/27/17 17:54 Labs: Short CBC 12/27/17 Range/Units 17:54 WBC 5.9 (4.3-11.1) K/mcL Hgb 10.2 L (11.5-15.4) g/dL Hct 30.3 L (35.3-44.9) % Plt Count 170 (140-400) K/mcL Neutrophils # 4.3 (1.6-8.9) K/mcL BMP 12/27/17 17:54 Sodium 136 Potassium 3.9 Chloride 100 Carbon Dioxide 23 BUN 44 H Creatinine 5.55 H Glucose 239 H Calcium 8.4 L Cardiac Enzymes 12/27/17 Range/Units 17:54 Troponin I < 0.03 (< 0.04) ng/mL Liver Function 12/27/17 Range/Units 17:54 Total Bilirubin 0.5 (0.3-1.0) mg/dL AST 12 L (13-39) Units/L ALT 14 (7-52) Units/L Alkaline Phosphatase 112 H (34-104) Units/L Albumin 3.6 (3.5-5.7) g/dL - EKG Data EKG shows normal: sinus rhythm - EKG Data Prior EKG available for review: no EKG comments: 12/27/17 22:26 EKG dated 12/27/17 shows sinus rhythm with left ventricular hypertrophy and ST-T change. - Assessment and plan (1) Chest pain Status: Acute Assessment and plan: Acute CP that pt. reports began began prior to dialysis today. Pt. states that she has been having higher BP than usual recently. CP is centralized in chest w/o radiation. No alleviating or aggravating factors. Pt. states similar sx 4-5 years ago. Denies stent placement. Pt. is ESRD on hemodialysis and sees Dr. Sutherland. When arrived to [facility], pt. was on 44 mcg/min of nitro gtt that was started at [facility]. BP was 211/99 on arrival. Limited Echo ordered. ASA. Lipitor 80 mg once. Nicardipine gtt. Initial troponin <0.03. Will trend. Continuous cardiac telemetry. Supplemental O2 w/titration and SpO2 monitoring. Consider Cardiology consult if troponins and/or Echo results abnormal as well as for HTN. Also consider adding stress test if appropriate. Nephrology consult placed and discussed w/Dr. Sutherland. Pt. discussed w/Dr. Guallpa who agrees w/plan of care. Pt. is high risk for further morbidity and complications d/t current HTN urgency, ESRD on dialysis, current CP, hx, and risk factors. Inpatient. Qualifiers: Chest pain type: other chest pain Qualified Code(s): R07.89 - Other chest pain; R07.8 - Other chest pain (2) Hypertensive urgency Status: Acute Assessment and plan: Acute HTN urgency. Pt. reports higher BP than usual recently. When transferred from [facility], pt. was placed on nitro gtt which was at 44 mcg/min by the time she arrived at [facility]. Discussed pt. w/Dr. Sutherland who follows pt. for Nephrology w/recommendation for nicardipine gtt. Nitro gtt titrated down and stopped. Will hold pts. BP medications until HTN urgency resolves. VS per gtt protocol. (3) Hyperphosphatemia Status: Acute Assessment and plan: Acute hyperphosphatemia of 112 on admission. Dialysis planned for tomorrow. Monitor pt. and f/u labs. (4) Hypocalcemia Status: Acute Assessment and plan: Acute hypocalcemia of 8.4 on admission. Monitor pt. and f/u labs. Continuous cardiac telemetry. (5) HTN (hypertension) Status: Chronic Assessment and plan: Hx of chronic HTN. Currently HTN urgency, so pt. placed on Cardizem drip. Monit or VS according to gtt protocol. Will hold pts. BP meds for now and resume after pts. HTN urgency resolves. Qualifiers: Hypertension type: essential hypertension Qualified Code(s): I10 - Essential (primary) hypertension (6) HLD (hyperlipidemia) Status: Chronic Assessment and plan: Hx of chronic HLD. Lipid panel in a.m. labs. Continue pts. Lipitor. Qualifiers: Hyperlipidemia type: pure hypercholesterolemia Qualified Code(s): E78.00 - Pure hypercholesterolemia, unspecified; E78.0 - Pure hypercholesterolemia (7) CAD (coronary artery disease) Status: Chronic Assessment and plan: Hx of CAD. Pt. has HLD, HTN, CKD, DM. Lipid panel in a.m. labs. Continuous cardiac telemetry. Limited Echo ordered. ASA. Continue Lipitor. Qualifiers: Coronary Disease-Associated Artery/Lesion type: [place] artery [place] vs. transplanted heart: [place] heart Associated angina: without angina Qualified Code(s): I25.10 - Atherosclerotic heart disease of [place] coronary artery without angina pectoris (8) Cardiac murmur Status: Chronic Assessment and plan: Hx of cardiac murmur d/t left valve. Pt. on Plavix. 81 mg ASA. Continuous cardiac telemetry. (9) Anemia in chronic kidney disease Status: Chronic Assessment and plan: Hx of chronic anemia r/t CKD. Hgb 10.2 on admission. Pt. denies unusual bleeding. Will monitor pt. and f/u labs. Qualifiers: Chronic kidney disease stage: on chronic dialysis Qualified Code(s): N18.6 - End stage renal disease; D63.1 - Anemia in chronic kidney disease; Z99.2 - Dependence on renal dialysis (10) Diabetes mellitus Status: Chronic Assessment and plan: Hx of chronic DM controlled w/insulin. Continue pts. home insulin and add low- dose correction sliding scale insulin w/hypoglycemia protocol. BG checks ACHS. A1c in a.m. labs. Qualifiers: Diabetes mellitus type: type 2 Diabetes mellitus exterminator termite insulin use: with long-term use Diabetes mellitus complication status: with kidney complications Diabetes mellitus complication detail: with chronic kidney disease Chronic kidney disease stage: on chronic dialysis Qualified Code(s): E11.22 - Type 2 diabetes mellitus with diabetic chronic kidney disease; N18.6 - End stage renal disease; Z99.2 - Dependence on renal dialysis; Z99.2 - Dependence on renal dialysis; Z99.2 - Dependence on renal dialysis; N18.6 - End stage renal disease; N18.6 - End stage renal disease; N18.6 - End stage renal disease; Z79.4 - long term (current) use of insulin; Z79.4 - long term (current) use of insulin; Z79.4 - residential (current) use of insulin; Z79.4 - long term (current) use of insulin; Z99.2 - Dependence on renal dialysis (11) Diastolic CHF Status: Chronic Assessment and plan: Hx of diastolic CHF. Stable. 1.5L daily fluid restriction. Continuous cardiac telemetry. Limited Echo ordered. Qualifiers: Heart failure chronicity: chronic Qualified Code(s): I50.32 - Chronic diastolic (congestive) heart failure (12) ESRD (end stage renal disease) on dialysis Status: Chronic Assessment and plan: Hx of ESRD on dialysis. Pt. did not receive dialysis today d/t CP. Nephrology consult ordered and discussed w/Dr. Sutherland and I appreciate the consult and recommendations. Monitor I&O and f/u labs. Avoid nephrotoxins. (13) DVT prophylaxis Status: Acute Assessment and plan: Bilateral SCDs on LEs for DVT prophylaxis. Will monitor troponins to assess need for possible heparin gtt if warranted. - Time Spent With Patient Total time spent is greater than 50% in coordination of care (as documented) at patient's floor/unit and/or counseling patient: Greater than 35 minutes <Nicolasa Guallpa - Last Filed: 01/01/18 07:59> Internal Medicine - H&P: HPI History of present illness: Ms. Giraldo is a 67 year old female All Systems PM: A 10-system review of systems was performed and is negative for pertinent findings except as documented above in the HPI. - Constitutional Vitals: Temp Pulse Resp BP Pulse Ox 98.1 F 95 16 218/93 96 12/28/17 13:45 12/28/17 14:05 12/28/17 14:05 12/28/17 14:05 12/28/17 14:05 Internal Med - H&P Results - Labs CBC & Chem 7: 12/28/17 05:47 12/28/17 05:47 - Impressions ITS Impressions Echocardiogram Limited Views 12/27/17 19:01 Impressions: Technically adequate exam to evaluate left ventricular ejection fraction. LVEF 60-65%. Mildly dilated left atrium. Normal right ventricular structure and function. - Assessment and plan (1) ESRD (end stage renal disease) on dialysis Status: Chronic (2) Diabetes mellitus Status: Chronic Qualifiers: Diabetes mellitus type: type 2 Diabetes mellitus exterminator termite insulin use: with long-term use Diabetes mellitus complication status: with kidney complications Diabetes mellitus complication detail: with chronic kidney disease Chronic kidney disease stage: on chronic dialysis Qualified Code(s): E11.22 - Type 2 diabetes mellitus with diabetic chronic kidney disease; N18.6 - End stage renal disease; Z99.2 - Dependence on renal dialysis; Z99.2 - Dependence on renal dialysis; Z99.2 - Dependence on renal dialysis; N18.6 - End stage renal disease; N18.6 - End stage renal disease; N18.6 - End stage renal disease; Z79.4 - long term (current) use of insulin; Z79.4 - long term (current) use of insulin; Z79.4 - residential (current) use of insulin; Z79.4 - long term (current) use of insulin; Z99.2 - Dependence on renal dialysis (3) Anemia in chronic kidney disease Status: Chronic Qualifiers: Chronic kidney disease stage: on chronic dialysis Qualified Code(s): N18.6 - End stage renal disease; D63.1 - Anemia in chronic kidney disease; Z99.2 - Dependence on renal dialysis (4) Cardiac murmur Status: Chronic (5) Diastolic CHF Status: Chronic Qualifiers: Heart failure chronicity: chronic Qualified Code(s): I50.32 - Chronic diastolic (congestive) heart failure (6) Hypertensive urgency Status: Acute (7) DVT prophylaxis Status: Acute (8) CAD (coronary artery disease) Status: Chronic Qualifiers: Coronary Disease-Associated Artery/Lesion type: [place] artery [place] vs. transplanted heart: [place] heart Associated angina: without angina Qualified Code(s): I25.10 - Atherosclerotic heart disease of [place] coronary artery without angina pectoris (9) Hyperphosphatemia Status: Acute (10) Hypocalcemia Status: Acute (11) HTN (hypertension) Status: Chronic Qualifiers: Hypertension type: essential hypertension Qualified Code(s): I10 - Essential (primary) hypertension (12) Chest pain Status: Acute Qualifiers: Chest pain type: other chest pain Qualified Code(s): R07.89 - Other chest pain; R07.8 - Other chest pain (13) HLD (hyperlipidemia) Status: Chronic Qualifiers: Hyperlipidemia type: pure hypercholesterolemia Qualified Code(s): E78.00 - Pure hypercholesterolemia, unspecified; E78.0 - Pure hypercholesterolemia - Time Spent With Patient Total time spent is greater than 50% in coordination of care (as documented) at patient's floor/unit and/or counseling patient: - Attending Attestation I personally and independently interviewed and examined the patient , and I reviewed the patient's medical record . I am in agreement with proposed assessment and proposed treatment plan. I discussed my findings and yadira mmendation with the patient and answer his questions. The patient's medical records were edited to accurately reflect this encounter.
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
[2017-12-27] MEDS ORDERED: 0.9 % Sodium Chloride 1,000 ML ONE (20:52)
[2017-12-27] MEDS ORDERED: Insulin LISPRO 300 UNITS/3 ML VIAL SQ SCH (21:00)
[2017-12-27] MEDS: niCARdipine 40 MG/200 ML MLS IVC SCH (21:01)
[2017-12-27] MEDS ORDERED: Insulin DETEMIR 100 UNIT/ML X5UNITS SQ SCH (23:45)
[2017-12-28] MEDS ORDERED: Insulin DETEMIR 100 UNIT/ML X5UNITS SQ SCH (00:01)
[2017-12-28 06:03] LABS: Basophils % 0.4 %; Eosinophils # 0.1 K/mcL (0.0-0.6); Eosinophils % 1.9 %; Hematocrit 30.1 % (35.3-44.9); Hemoglobin 10.1 g/dL (11.5-15.4); Immature Granulocytes % 0.2 % (0-4); Lymphocytes # 1.1 K/mcL (0.6-4.6); Lymphocytes % 21.7 %; Mean Corpuscular HGB Conc 33.6 g/dL (31.6-35.5); Mean Corpuscular Hemoglobin 28.6 pg (28.0-33.3); Mean Corpuscular Volume 85.3 fL (83.0-100.0); Mean Platelet Volume 10.5 fL (9.4-12.4); Monocytes # 0.4 K/mcL (0.0-1.3); Monocytes % 7.1 %; Neutrophils # 3.6 K/mcL (1.6-8.9); Platelet Count 156 K/mcL (140-400); Red Blood Count 3.53 M/mcL (3.82-4.97); Red Cell Distribution Width 12.8 % (11.5-14.5); Segmented Neutrophils % 68.7 %
[2017-12-28 06:13] LABS: INR 1.1
[2017-12-28 06:16] LABS: Activated Partial Thrombo Time 36.4 Seconds (26.0-36.0)
[2017-12-28 06:23] LABS: Albumin 3.5 g/dL (3.5-5.7); Albumin/Globulin Ratio 1.3 (1.1-2.2); Bilirubin,Total 0.5 mg/dL (0.3-1.0); Calcium 8.5 mg/dL (8.6-10.3); Chol/HDL Ratio 3.4 (0-4.9); Globulin 2.7 g/dL (2.4-3.5); Magnesium 1.9 mg/dL (1.6-2.6); Potassium 3.4 mEq/L (3.5-5.1); Total Protein 6.2 g/dL (6.4-8.9)
[2017-12-28] MEDS ORDERED: 0.9 % Sodium Chloride 250 ML IVC PRN (07:20)
[2017-12-28] MEDS ORDERED: 0.9 % Sodium Chloride 1,000 ML PRIME SCH (07:30)
[2017-12-28] MEDS ORDERED: 0.9 % Sodium Chloride 2,000 ML ONE (08:10)
[2017-12-28 08:12] LABS: Estimated Average Glucose 278 mg/dl; Hemoglobin A1C 11.3 %
[2017-12-28] MEDS ORDERED: Aspirin Enteric Coated 81 MG Tablet PO SCH (09:00)
[2017-12-28] MEDS ORDERED: Isosorbide MONOnitrate (24 HR) 30 MG TAB.ER.24H PO SCH (09:00)
[2017-12-28] MEDS ORDERED: cloNIDine HCl 0.1 MG TABLET PO SCH (09:00)
[2017-12-28] MEDS ORDERED: Lisinopril 20 MG TABLET PO SCH (09:00)
[2017-12-28] MEDS: Insulin LISPRO 300 UNITS/3 ML VIAL SQ SCH ×2 (09:02→13:55)
[2017-12-28 09:49] LABS: Hepatitis B Surface Antigen Nonreactive (Nonreactive)
--- NOTE | 2017-12-28 10:47 | Nephrology Progress Note ---
Date of Encounter: 12/28/17 Time of Encounter: 08:55 - Assessment and Plan (1) ESRD (end stage renal disease) on dialysis Current Visit: Yes Status: Chronic HD today May be discharged after dialysis; if so to f/u tomorrow at [facility] for her regular outpatient dialysis treatments (2) Hypertensive urgency Current Visit: Yes Status: Acute B/P better-161/78 (3) Diabetes mellitus Current Visit: Yes Status: Chronic Hgb A1C 11.3 Needs better control of diabetes Patient states her PCP has recently adjusted some of her diabetic meds. Qualifiers: Diabetes mellitus type: type 2 Diabetes mellitus alf insulin use: with alf use Diabetes mellitus complication status: with kidney complications Diabetes mellitus complication detail: with chronic kidney disease Chronic kidney disease stage: on chronic dialysis Qualified Code(s): E11.22 - Type 2 diabetes mellitus with diabetic chronic kidney disease; N18.6 - End stage renal disease; Z99.2 - Dependence on renal dialysis; Z99.2 - Dependence on renal dialysis; Z99.2 - Dependence on renal dialysis; N18.6 - End stage renal disease; N18.6 - End stage renal disease; N18.6 - End stage renal disease; Z79.4 - medical terminologist (current) use of insulin; Z79.4 - medical terminologist (current) use of insulin; Z79.4 - medical terminologist (current) use of insulin; Z79.4 - shelter (current) use of insulin; Z99.2 - Dependence on renal dialysis Subjective Principal diagnosis: ESRD on dialysis, hypertensive urgency Interval history: Patient seen and examined. States she is feeling better. Objective - Vital Signs Vital signs: Vital Signs Temp Pulse Resp BP Pulse Ox 12/28/17 07:09 98.4 F 78 19 161/78 95 12/28/17 05:00 76 162/72 12/28/17 04:03 98.6 F 80 16 167/68 98 12/28/17 03:00 83 165/73 12/28/17 02:00 78 160/74 12/28/17 01:09 75 162/74 96 12/28/17 00:00 74 158/71 12/27/17 23:30 75 158/70 12/27/17 23:28 98.4 F 75 17 162/70 95 12/27/17 23:15 79 159/71 12/27/17 23:00 76 166/79 12/27/17 22:45 78 167/81 12/27/17 22:30 75 157/67 12/27/17 22:15 76 160/75 12/27/17 22:00 78 169/72 12/27/17 21:45 79 171/80 12/27/17 21:30 88 167/105 12/27/17 21:15 76 165/76 12/27/17 20:30 78 236/111 12/27/17 20:05 98.5 F 67 16 208/89 97 12/27/17 17:58 98.1 F 63 18 196/107 99 Intake and Output 12/27/17 12/28/17 12/28/17 23:59 07:59 15:59 Intake Total 6 / 6 Output Total 500 / 500 Balance 6 / 6 -500 / -500 Intake: IV Fluids 6 / 6 Cardene Premix 40mg/200ml 40 mg 6 / 6 In 200 ml @ 5 MG/HR 25 mls/hr IVC .Q8H [facility] Rx#:[id number] Output: Urine 500 / 500 Other: Weight 75.296 kg 73.595 kg Blood Glucose* 238 127 Patient Weight 12/28/17 23:59 Weight 73.595 kg - General Appearance General appearance: Present: well-developed, well-nourished EENT: Present: ATNC, mucous membranes moist, hearing intact, vision intact Neck: Present: supple Respiratory: Present: clear Cardiology: Present: no edema, normal S1, normal S2 Dialysis Vascular Access: Arteriovenous Fistula Gastrointestinal: Present: no guarding Integumentary: Present: warm and dry Neurologic: Present: alert and oriented x3 Psychiatric: Present: mood/affect appropriate, cooperative - Lab 12/28/17 05:47 12/28/17 05:47 Most recent lab results Calcium 8.5 mg/dL (8.6-10.3) L 12/28/17 05:47 Magnesium 1.9 mg/dL (1.6-2.6) 12/28/17 05:47 Consult Discharge Plan - Plan Referrals: Fareed Ivy DO [Primary Care Provider] -
--- NOTE | 2017-12-28 11:39 | Discharge Summary ---
- NOTES TO OUTPATIENT PROVIDER Notes to Outpatient Provider: Patient was admitted for hypertensive urgency in the setting of emotional stress. Required nicardipine gtt briefly and improved with 1 session of HD inpatient. Her HTN meds are being managed by Nephrology as outpatient, who evaluated the patient during her stay, and no changes were made. Of note, her A1c was noted to be 11.3 and will need adjustment of her insulin dosing by PCP. Orders not resulted at time of discharge: Pending orders 12/28/17 08:15 Hepatitis B Surface Antibody Stat Hepatitis B Surface Antigen Stat 12/29/17 04:00 Complete Blood Count [HEME] AM 0400 Comprehensive Metabolic Panel AM 0400 12/30/17 04:00 Complete Blood Count [HEME] AM 0400 Comprehensive Metabolic Panel AM 0400 12/31/17 04:00 Complete Blood Count [HEME] AM 0400 Comprehensive Metabolic Panel AM 0400 01/01/18 04:00 Complete Blood Count [HEME] AM 0400 Comprehensive Metabolic Panel AM 0400 Date of Encounter: 12/28/17 Time of Encounter: 07:45 - Discharge Diagnosis (1) ESRD (end stage renal disease) on dialysis Priority: Secondary Status: Chronic (2) Diabetes mellitus Priority: Secondary Status: Chronic Qualifiers: Diabetes mellitus type: type 2 Diabetes mellitus intermodal customer service insulin use: with penitentiary use Diabetes mellitus complication status: with kidney complications Diabetes mellitus complication detail: with chronic kidney disease Chronic kidney disease stage: on chronic dialysis Qualified Code(s): E11.22 - Type 2 diabetes mellitus with diabetic chronic kidney disease; N18.6 - End stage renal disease; Z99.2 - Dependence on renal dialysis; Z99.2 - Dependence on renal dialysis; Z99.2 - Dependence on renal dialysis; N18.6 - End stage renal disease; N18.6 - End stage renal disease; N18.6 - End stage renal disease; Z79.4 - [facility] (current) use of insulin; Z79.4 - intermission coordinator (current) use of insulin; Z79.4 - [facility] (current) use of insulin; Z79.4 - [facility] (current) use of insulin; Z99.2 - Dependence on renal dialysis (3) Anemia in chronic kidney disease Priority: Secondary Status: Chronic Qualifiers: Chronic kidney disease stage: on chronic dialysis Qualified Code(s): N18.6 - End stage renal disease; D63.1 - Anemia in chronic kidney disease; Z99.2 - Dependence on renal dialysis (4) Cardiac murmur Priority: Secondary Status: Chronic (5) Diastolic CHF Priority: Secondary Status: Chronic Qualifiers: Heart failure chronicity: chronic Qualified Code(s): I50.32 - Chronic diastolic (congestive) heart failure (6) Hypertensive urgency Priority: Primary Status: Acute (7) DVT prophylaxis Priority: Secondary Status: Acute (8) CAD (coronary artery disease) Priority: Secondary Status: Chronic Qualifiers: Coronary Disease-Associated Artery/Lesion type: [place] artery [place] vs. transplanted heart: [place] heart Associated angina: without angina Qualified Code(s): I25.10 - Atherosclerotic heart disease of [place] coronary artery without angina pectoris (9) Hyperphosphatemia Priority: Secondary Status: Acute (10) Hypocalcemia Priority: Secondary Status: Acute (11) HTN (hypertension) Priority: Secondary Status: Chronic Qualifiers: Hypertension type: essential hypertension Qualified Code(s): I10 - Essential (primary) hypertension (12) Chest pain Priority: Secondary Status: Acute Qualifiers: Chest pain type: other chest pain Qualified Code(s): R07.89 - Other chest pain; R07.8 - Other chest pain (13) HLD (hyperlipidemia) Priority: Secondary Status: Chronic Qualifiers: Hyperlipidemia type: pure hypercholesterolemia Qualified Code(s): E78.00 - Pure hypercholesterolemia, unspecified; E78.0 - Pure hypercholesterolemia Hospital course: Ms. Giraldo is a 67 year old female with PMHx of ESRD, HTN, HLD, presented to the ED with chest pain in the setting of accelerated HTN due to emotional stress. Serial troponins -ve, no EKG changes. Previously had similar episode with elevated BP and at one point, she was also offered LHC in view of multple risk factors but declined. Chest discomfort that she experienced is likely due to elevated BP and again declines further cardiac workup other than Echo, which was unchanged from 06/2017. She required brief period of nicardipine gtt and underwent dialysis uneventfully with improvement in her BP. Nephrology also evaluated the patient during her stay, who manages her anti-HTN meds, and no changes were made to her regime. A1c is noted to be 11.3; will need outpatient insulin titration. Discharge discussed with: patient - Time Spent with Patient Total time spent providing and/or coordinating discharge services: Greater than 30 minutes - Discharge Medications Home Medications: Aspirin [Lo-Dose Aspirin EC] 81 mg PO DAILY 11/02/16 [History] Cholecalciferol (D-3) [Vitamin D] 2,000 unit PO HS 11/02/16 [History] Insulin Glargine [Lantus] 17 unit SQ HS 11/02/16 [History] Insulin LISPRO [HumaLOG] 10 unit SQ TIDWM 11/02/16 [History] Isosorbide MONOnitrate (24 HR) [Imdur] 30 mg PO DAILY 11/02/16 [History] Clopidogrel [Plavix] 75 mg PO DAILY 11/03/16 [History] Lidocaine/Prilocaine CREAM [Emla] 1 appl TP AD PRN 11/03/16 [History] Acetaminophen [Tylenol] 650 mg PO Q6HR PRN #120 tab 11/09/16 [Rx] Sod Phos Di, [place]/K Phos [place] [K-Phos Neutral Tablet] 250 mg PO DAILY 05/25/17 [History] Atorvastatin [Lipitor] 40 mg PO HS 06/17/17 [History] Latanoprost [Xalatan] 1 drop RIGHT EYE HS 06/17/17 [History] cloNIDine HCl [CloNIDine HCl] 0.3 mg PO BID 12/27/17 [History] Carvedilol 6.25 mg PO SUTUTHSA 12/28/17 [History] Carvedilol 12.5 mg PO SUTUTHSA 12/28/17 [History] Lisinopril [Zestril] 20 mg PO DAILY 12/28/17 [History] Sevelamer Carbonate [Renvela] 2.4 gm PO 12/28/17 [History] Allergies/Adverse Reactions: Allergy/AdvReac Type Severity Reaction Status Date / Time Erythromycin Base Allergy Intermediate Itching Verified 07/28/17 23:23 fluoxetine Allergy Hives Verified 07/28/17 23:23 Hydralazine Allergy Hives Verified 07/28/17 23:23 Date of admission: 12/27/17 18:59 Primary care physician: Fareed Ivy DO Consults: 12/27/17 18:47 Consult to Guard Manager [CONS] Routine Reason for SW Consult: Please assess patient for possible home needs for post-discharge planning. [facility] (RN on wednesdays, Aides M-), [facility], [place] in [place] m-w-f 12/27/17 18:49 Consult to Nephrology [CONS] Routine Consulting Provider: Kidney Nikkie/LUIS MIGUEL/DEEPA/SEBAS Reason for Consult: Patient is ESRD on dialysis and developed CP while going to dialysis today. Pt. is also experiencing HTN emergency. Was placed on nitro gtt at [facility] and was at 44 mcg/min when she arrived at [facility]. Discussed pt. w/Dr. Sutherland w/plan to begin nicardipine gtt on 2N. Will monitor pts. K levels when stat labs become available. Call Completed: Yes 12/27/17 19:11 Consult to Nutrition [CONS] Routine Comment: Consulting Provider: NUTRITION Reason for Dietary Consult: MST Score Other:: Renal Patient 12/28/17 07:30 Consult to Dialysis [CONS] ONCE - Constitutional Vitals: Temp Pulse Resp BP Pulse Ox 98.4 F 82 16 167/83 96 12/28/17 07:09 12/28/17 09:12 12/28/17 09:08 12/28/17 09:08 12/28/17 09:47 General appearance: Present: cooperative, mild distress (CP), A&O X 3, pleasant, obese, answers questions appropriately Exam: General: Alert and oriented, not in acute distress. Cardiovascular:Normal S1 & S2, No JVD. Pulse regular. Lungs: clear to auscultation, no wheezes/rales Abdomen:Soft, non-tender, no rigidity. Neurological:Normal cognition and motor skills. Non-focal - Patient Status Disposition: Home, Self-Care Condition: Good Overall status at discharge: patient is back to baseline - Discharge Instructions Instructions: Chest Pain (DC), Chronic Hypertension (DC) Follow Up With: Wenceslao He DO [Partnered Physician] - 01/04/18 1:00 pm - Diet and Activity Activity: resume usual activities as tolerated Diet: other
[2017-12-28] MEDS: niCARdipine 40 MG/200 ML MLS IVC SCH (13:59)
[2017-12-28 14:06] VITALS: BP 218/93
--- NOTE | 2017-12-28 14:51 | Electrocardiograph Report ---
[address] [address] Test Date: 2017-12-27 Pat Name: Crystal Giraldo Department: 111 Room: 2N13 Gender: F [employer] Crewmember: : 1950 Requested By: [id number] Order Number: [id number] Reading MD: Casey Sotelo Measurements Intervals [place] Rate: 70 P: 52 [place]: 160 QRS: 11 QRSD: 90 T: 7 QT: 456 QTc: 477 Interpretive Statements SINUS RHYTHM LEFT VENTRICULAR HYPERTROPHY AND ST-T CHANGE Electronically Signed On 12-28-2017 14:49:56 EDT by Casey Sotelo
--- NOTE | 2017-12-28 14:53 | Physician Discharge Referral ---
Home Health/Hosp Referral Info Transfer to: Home Health - Diagnosis (1) ESRD (end stage renal disease) on dialysis Priority: Secondary Status: Chronic (2) Diabetes mellitus Priority: Secondary Status: Chronic (3) Anemia in chronic kidney disease Priority: Secondary Status: Chronic (4) Cardiac murmur Priority: Secondary Status: Chronic (5) Diastolic CHF Priority: Secondary Status: Chronic (6) Hypertensive urgency Priority: Primary Status: Acute (7) DVT prophylaxis Priority: Secondary Status: Acute (8) CAD (coronary artery disease) Priority: Secondary Status: Chronic (9) Hyperphosphatemia Priority: Secondary Status: Acute (10) Hypocalcemia Priority: Secondary Status: Acute (11) HTN (hypertension) Priority: Secondary Status: Chronic (12) Chest pain Priority: Secondary Status: Acute (13) HLD (hyperlipidemia) Priority: Secondary Status: Chronic - Respiratory Orders Smoking Cessation: Smoking cessation has been advised. For more information, call the [place] Tobacco Quit Line at 9-152-LOHB-NOW. - Services Needed Following services are medically necessary services: Nursing - Transfer Medications Home Medications: Aspirin [Lo-Dose Aspirin EC] 81 mg PO DAILY 11/02/16 [History] Cholecalciferol (D-3) [Vitamin D] 2,000 unit PO HS 11/02/16 [History] Insulin Glargine [Lantus] 17 unit SQ HS 11/02/16 [History] Insulin LISPRO [HumaLOG] 10 unit SQ TIDWM 11/02/16 [History] Isosorbide MONOnitrate (24 HR) [Imdur] 30 mg PO DAILY 11/02/16 [History] Clopidogrel [Plavix] 75 mg PO DAILY 11/03/16 [History] Lidocaine/Prilocaine CREAM [Emla] 1 appl TP AD PRN 11/03/16 [History] Acetaminophen [Tylenol] 650 mg PO Q6HR PRN #120 tab 11/09/16 [Rx] Sod Phos Di, [place]/K Phos [place] [K-Phos Neutral Tablet] 250 mg PO DAILY 05/25/17 [History] Atorvastatin [Lipitor] 40 mg PO HS 06/17/17 [History] Latanoprost [Xalatan] 1 drop RIGHT EYE HS 06/17/17 [History] cloNIDine HCl [CloNIDine HCl] 0.3 mg PO BID 12/27/17 [History] Carvedilol 6.25 mg PO SUTUTHSA 12/28/17 [History] Carvedilol 12.5 mg PO SUTUTHSA 12/28/17 [History] Lisinopril [Zestril] 20 mg PO DAILY 12/28/17 [History] Sevelamer Carbonate [Renvela] 2.4 gm PO 12/28/17 [History] Allergies/Adverse Reactions: Allergy/AdvReac Type Severity Reaction Status Date / Time Erythromycin Base Allergy Intermediate Itching Verified 07/28/17 23:23 fluoxetine Allergy Hives Verified 07/28/17 23:23 Hydralazine Allergy Hives Verified 07/28/17 23:23 Certification: Further, I certify that my clinical findings support that this patient is homebound (i.e. absences from home require considerable and taxing effort and are for medical reasons or zoroastrianism services or infrequently or short duration when for other reasons) because: Homebound Reason: Patient requires assistance of a person or device to safely leave home Attestation: My signature below is to certify that this patient is under my care and that I, or nurse practitioner, or a physician's medical office assistant instructor working with me, has a [id number] encounter with this patient.
[2017-12-28] MEDS ORDERED: Cholecalciferol (D-3) 1,000 UNIT TABLET PO SCH (21:00)
[2017-12-28] MEDS ORDERED: Latanoprost 2.5 ML BOTTLE RIGHT EYE SCH (21:00)
[2017-12-29 04:35] LABS: Hepatitis B Surface Antibody 50.45 mIU/mL
--- NOTE | 2017-12-30 22:40 | Electrocardiograph Report ---
[place] [address] Test Date: 2017-12-27 Pat Name: Crystal Giraldo Department: 110 Room: 2N13 Gender: F Nutritional Health Coach: : 1950 Requested By: Tevin Skinner Order Number: [id number] Reading MD: Greg Briggs Measurements Intervals [place] Rate: 77 P: 54 [place]: 155 QRS: 14 QRSD: 90 T: -3 QT: 433 QTc: 464 Interpretive Statements SINUS RHYTHM LEFT VENTRICULAR HYPERTROPHY AND ST-T CHANGE Electronically Signed On 12-30-2017 22:38:35 EDT by Greg Briggs
== END 2017-12-28 16:56 | disposition home or self-care (01) | DRG 304 ==
LOC: 2ANU → SUATTDRO 18:59 → 2NNU 20:46
PROVIDERS: ADMIT Internal Medicine Nephrology; ATTEND Internal Medicine

== ENCOUNTER 2019-07-16 08:35 | Inpatient (IN) ==
[2019-07-16 09:32] LABS: Basophils % 0.2 %; Eosinophils % 0.7 %; Hematocrit 36.7 % (35.3-44.9); Hemoglobin 11.3 g/dL (11.5-15.4); Immature Granulocytes % 0.2 % (0-4); Lymphocytes # 0.7 K/mcL (0.6-4.6); Lymphocytes % 11.2 %; Mean Corpuscular HGB Conc 30.8 g/dL (31.6-35.5); Mean Corpuscular Hemoglobin 28.5 pg (28.0-33.3); Mean Corpuscular Volume 92.4 fL (83.0-100.0); Monocytes # 0.6 K/mcL (0.0-1.3); Monocytes % 10.2 %; Neutrophils # 4.5 K/mcL (1.6-8.9); Platelet Count 210 K/mcL (140-400); Red Blood Count 3.97 M/mcL (3.82-4.97); Red Cell Distribution Width 13.7 % (11.5-14.5); Segmented Neutrophils % 77.5 %; White Blood Count 5.8 K/mcL (4.3-11.1)
[2019-07-16 09:39] LABS: INR 1.8; Prothrombin Time 20.7 Seconds (9.4-12.1)
[2019-07-16] MEDS ORDERED: Calcium Gluconate 1gm/50mL 1 GM/50 ML BAG IVPB ONE (09:58)
[2019-07-16 09:59] LABS: Albumin 3.7 g/dL (3.5-5.7); Bilirubin,Direct 0.1 mg/dL (0.0-0.2); Bilirubin,Indirect 0.4 mg/dL (0.0-1.0); Bilirubin,Total 0.5 mg/dL (0.3-1.0); Calcium 8.7 mg/dL (8.6-10.3); Globulin 3.6 g/dL (2.4-3.5); Potassium 6.7 mEq/L (3.5-5.1); Total Protein 7.3 g/dL (6.4-8.9); Troponin I 0.04 ng/mL (< 0.04)
[2019-07-16 11:58] LABS: Procalcitonin 0.93 ng/mL (0.00-0.15)
[2019-07-16] MEDS ORDERED: Azithromycin 500 MG in 0.9 % Sodium Chloride 250 ML IVPB ONE (13:06)
[2019-07-16] MEDS ORDERED: cefTRIAXone 1,000 MG in Water for inj. (sterile) 10 ML IVP ONE (13:06)
[2019-07-16] MEDS ORDERED: 0.9 % Sodium Chloride 250 ML IVC PRN ×2 (13:26→13:32)
[2019-07-16] MEDS ORDERED: 0.9 % Sodium Chloride 1,000 ML PRIME SCH ×2 (13:30→13:45)
[2019-07-16] MEDS ORDERED: *HR* Heparin 10,000 UNIT/10 ML VIAL IV PRN (13:32)
[2019-07-16] MEDS ORDERED: Naloxone 0.4 MG/ML INJ IVP PRN (13:51)
[2019-07-16] MEDS ORDERED: Ondansetron 4 MG/2 ML VIAL IVP PRN (13:56)
[2019-07-16] MEDS ORDERED: Dextrose Gel 15 GM/37.5 ML TUBE PO PRN ×2 (14:55)
[2019-07-16] MEDS ORDERED: D5% in Water 1,000 ML IVC PRN (14:55)
[2019-07-16] MEDS ORDERED: *HR* Dextrose 50 % in Water (Syg) 50 ML SYRINGE IVP PRN (14:55)
[2019-07-16 15:03] LABS: Hepatitis B Surface Antibody 39.44 mIU/mL
[2019-07-16 15:12] LABS: Hepatitis B Surface Antigen Nonreactive (Nonreactive)
[2019-07-16] MEDS ORDERED: Acetaminophen 325 MG TABLET PO PRN (15:53)
[2019-07-16] MEDS: Insulin LISPRO 300 UNITS/3 ML VIAL SQ SCH ×2 (16:05→22:06)
[2019-07-16] MEDS: carvediloL 6.25 MG TABLET PO SCH (17:56)
[2019-07-16] MEDS: Bumetanide 1 MG TABLET PO SCH (17:56)
[2019-07-16] MEDS: Apixaban 5 MG TABLET PO SCH (22:03)
[2019-07-16] MEDS: Cholecalciferol (D-3) 1,000 UNIT (25MCG) TABLET PO SCH (22:03)
[2019-07-16] MEDS: Insulin DETEMIR 100 UNIT/ML X5UNITS SQ SCH (22:06)
[2019-07-17 01:04] LABS: Basophils % 0.3 %; Eosinophils # 0.1 K/mcL (0.0-0.6); Eosinophils % 1.1 %; Hematocrit 37.3 % (35.3-44.9); Hemoglobin 12.2 g/dL (11.5-15.4); Immature Granulocytes % 0.3 % (0-4); Lymphocytes # 0.9 K/mcL (0.6-4.6); Lymphocytes % 12.8 %; Mean Corpuscular HGB Conc 32.7 g/dL (31.6-35.5); Mean Corpuscular Hemoglobin 29.5 pg (28.0-33.3); Mean Corpuscular Volume 90.3 fL (83.0-100.0); Monocytes # 0.7 K/mcL (0.0-1.3); Neutrophils # 5.6 K/mcL (1.6-8.9); Platelet Count 247 K/mcL (140-400); Red Blood Count 4.13 M/mcL (3.82-4.97); Red Cell Distribution Width 13.7 % (11.5-14.5); Segmented Neutrophils % 76.5 %; White Blood Count 7.3 K/mcL (4.3-11.1)
[2019-07-17 01:15] LABS: Calcium 9.5 mg/dL (8.6-10.3); Potassium 3.6 mEq/L (3.5-5.1)
[2019-07-17] MEDS ORDERED: *HR* Heparin 10,000 UNIT/10 ML VIAL IV PRN (07:34)
[2019-07-17] MEDS ORDERED: 0.9 % Sodium Chloride 250 ML IVC PRN (07:34)
[2019-07-17] MEDS: Insulin LISPRO 300 UNITS/3 ML VIAL SQ SCH ×4 (08:16→20:57)
[2019-07-17] MEDS: Aspirin Enteric Coated 81 MG Tablet PO SCH (08:19)
[2019-07-17] MEDS: Isosorbide MONOnitrate (24 HR) 30 MG TAB.ER.24H PO SCH (08:19)
[2019-07-17] MEDS: Renal Vitamin 1 CAP CAPSULE PO SCH (08:19)
[2019-07-17] MEDS: cefTRIAXone 1,000 MG in 0.9 % Sodium Chloride Mini Bag 100 ML IVPB SCH (08:20)
[2019-07-17] MEDS: Apixaban 5 MG TABLET PO SCH ×2 (08:20→20:54)
[2019-07-17] MEDS ORDERED: Bumetanide 1 MG TABLET PO SCH (09:00)
[2019-07-17] MEDS: Azithromycin 500 MG in 0.9 % Sodium Chloride 250 ML IVPB SCH (09:13)
[2019-07-17] MEDS: Bumetanide 1 MG TABLET PO SCH ×2 (09:58→16:18)
[2019-07-17] MEDS: carvediloL 6.25 MG TABLET PO SCH ×3 (09:58→16:19)
[2019-07-17] MEDS: lisinopriL 20 MG TABLET PO SCH (09:59)
[2019-07-17] MEDS: cloNIDine HCL 0.1 MG TABLET PO SCH ×2 (09:59→20:54)
[2019-07-17] MEDS: Cholecalciferol (D-3) 1,000 UNIT (25MCG) TABLET PO SCH (20:54)
[2019-07-17] MEDS: Famotidine 20 MG TABLET PO SCH (20:55)
[2019-07-17] MEDS: Insulin DETEMIR 100 UNIT/ML X5UNITS SQ SCH (20:56)
[2019-07-18 00:51] LABS: Basophils % 0.5 %; Eosinophils % 0.7 %; Hematocrit 38.7 % (35.3-44.9); Hemoglobin 12.3 g/dL (11.5-15.4); Immature Granulocytes % 0.3 % (0-4); Mean Corpuscular HGB Conc 31.8 g/dL (31.6-35.5); Mean Corpuscular Hemoglobin 29.5 pg (28.0-33.3); Mean Corpuscular Volume 92.8 fL (83.0-100.0); Mean Platelet Volume 10.2 fL (9.4-12.4); Monocytes # 0.7 K/mcL (0.0-1.3); Monocytes % 12.3 %; Platelet Count 239 K/mcL (140-400); Red Blood Count 4.17 M/mcL (3.82-4.97); Red Cell Distribution Width 13.2 % (11.5-14.5); Segmented Neutrophils % 69.2 %; White Blood Count 5.8 K/mcL (4.3-11.1)
[2019-07-18 01:01] LABS: Calcium 9.3 mg/dL (8.6-10.3); Potassium 4.4 mEq/L (3.5-5.1)
[2019-07-18] MEDS: Insulin LISPRO 300 UNITS/3 ML VIAL SQ SCH ×4 (07:59→21:08)
[2019-07-18] MEDS: carvediloL 6.25 MG TABLET PO SCH ×2 (08:28→16:49)
[2019-07-18] MEDS: cloNIDine HCL 0.1 MG TABLET PO SCH ×2 (08:28→21:10)
[2019-07-18] MEDS: lisinopriL 20 MG TABLET PO SCH (08:28)
[2019-07-18] MEDS: Renal Vitamin 1 CAP CAPSULE PO SCH (08:28)
[2019-07-18] MEDS: Aspirin Enteric Coated 81 MG Tablet PO SCH (08:28)
[2019-07-18] MEDS: Isosorbide MONOnitrate (24 HR) 30 MG TAB.ER.24H PO SCH (08:28)
[2019-07-18] MEDS: Bumetanide 1 MG TABLET PO SCH ×2 (08:28→16:54)
[2019-07-18] MEDS: cefTRIAXone 1,000 MG in 0.9 % Sodium Chloride Mini Bag 100 ML IVPB SCH (08:29)
[2019-07-18] MEDS: Apixaban 5 MG TABLET PO SCH ×2 (08:29→21:11)
[2019-07-18] MEDS: Azithromycin 500 MG in 0.9 % Sodium Chloride 250 ML IVPB SCH (09:28)
[2019-07-18] MEDS: Cholecalciferol (D-3) 1,000 UNIT (25MCG) TABLET PO SCH (21:11)
[2019-07-18] MEDS: Famotidine 20 MG TABLET PO SCH (21:11)
[2019-07-18] MEDS: Insulin DETEMIR 100 UNIT/ML X5UNITS SQ SCH (21:14)
[2019-07-19 04:00] LABS: Basophils % 0.8 %; Eosinophils # 0.1 K/mcL (0.0-0.6); Eosinophils % 1.9 %; Hematocrit 37.7 % (35.3-44.9); Hemoglobin 11.4 g/dL (11.5-15.4); Immature Granulocytes % 0.4 % (0-4); Lymphocytes # 1.2 K/mcL (0.6-4.6); Lymphocytes % 23.1 %; Mean Corpuscular HGB Conc 30.2 g/dL (31.6-35.5); Mean Corpuscular Hemoglobin 28.6 pg (28.0-33.3); Mean Corpuscular Volume 94.5 fL (83.0-100.0); Mean Platelet Volume 10.1 fL (9.4-12.4); Monocytes # 0.8 K/mcL (0.0-1.3); Neutrophils # 3.1 K/mcL (1.6-8.9); Platelet Count 226 K/mcL (140-400); Red Blood Count 3.99 M/mcL (3.82-4.97); Segmented Neutrophils % 58.8 %; White Blood Count 5.2 K/mcL (4.3-11.1)
[2019-07-19 04:14] LABS: Calcium 8.8 mg/dL (8.6-10.3); Potassium 4.6 mEq/L (3.5-5.1)
[2019-07-19] MEDS ORDERED: *HR* Heparin 10,000 UNIT/10 ML VIAL IV PRN (07:28)
[2019-07-19] MEDS ORDERED: 0.9 % Sodium Chloride 250 ML IVC PRN (07:28)
[2019-07-19] MEDS ORDERED: 0.9 % Sodium Chloride 1,000 ML PRIME SCH (07:30)
[2019-07-19] MEDS: Insulin LISPRO 300 UNITS/3 ML VIAL SQ SCH ×2 (08:17→13:55)
[2019-07-19] MEDS ORDERED: Azithromycin 250 MG TABLET PO SCH (10:45)
[2019-07-19] MEDS ORDERED: Cefdinir 300 MG CAPSULE PO SCH (10:45)
[2019-07-19] MEDS: cloNIDine HCL 0.1 MG TABLET PO SCH (13:50)
[2019-07-19] MEDS: Aspirin Enteric Coated 81 MG Tablet PO SCH (13:51)
[2019-07-19] MEDS: Renal Vitamin 1 CAP CAPSULE PO SCH (13:51)
[2019-07-19] MEDS: Bumetanide 1 MG TABLET PO SCH (13:51)
[2019-07-19] MEDS: carvediloL 6.25 MG TABLET PO SCH (13:53)
[2019-07-19] MEDS: Apixaban 5 MG TABLET PO SCH (13:53)
[2019-07-19] MEDS: Isosorbide MONOnitrate (24 HR) 30 MG TAB.ER.24H PO SCH (13:54)
[2019-07-19] MEDS: lisinopriL 20 MG TABLET PO SCH (13:55)
[2019-07-19 14:55] VITALS: BP 126/69
== END 2019-07-19 15:55 | disposition home or self-care (01) | DRG 291 ==
LOC: 2ANU 08:35 → EMEROOARM 08:35 → SUATTDRO 13:07 → 2ANU 13:58
PROVIDERS: ADMIT Family Medicine; ATTEND Internal Medicine

== ENCOUNTER 2020-01-31 14:46 | Inpatient (IN) ==
[2020-01-31] MEDS ORDERED: Aspirin 81 MG TAB.CHEW PO ONE (15:04)
[2020-01-31] MEDS ORDERED: Ondansetron 4 MG/2 ML VIAL IVP ONE (15:05)
[2020-01-31] MEDS ORDERED: 0.9 % Sodium Chloride 1,000 ML IVC SCH (15:15)
[2020-01-31 15:32] LABS: Basophils % 0.4 %; Eosinophils % 0.4 %; Hematocrit 40.4 % (35.3-44.9); Hemoglobin 12.4 g/dL (11.5-15.4); Immature Granulocytes % 0.4 % (0-4); Lymphocytes # 0.6 K/mcL (0.6-4.6); Lymphocytes % 8.3 %; Mean Corpuscular HGB Conc 30.7 g/dL (31.6-35.5); Mean Corpuscular Hemoglobin 28.1 pg (28.0-33.3); Mean Corpuscular Volume 91.4 fL (83.0-100.0); Mean Platelet Volume 11.1 fL (9.4-12.4); Monocytes # 0.4 K/mcL (0.0-1.3); Monocytes % 5.5 %; Neutrophils # 5.7 K/mcL (1.6-8.9); Platelet Count 194 K/mcL (140-400); Red Blood Count 4.42 M/mcL (3.82-4.97); Red Cell Distribution Width 16.7 % (11.5-14.5); White Blood Count 6.8 K/mcL (4.3-11.1)
[2020-01-31 15:34] LABS: INR 1.7
[2020-01-31 15:36] LABS: Activated Partial Thrombo Time 32.2 Seconds (26.0-36.0)
[2020-01-31] MEDS ORDERED: *HR* FentaNYL (PF) 100 MCG/2 ML VIAL IVP ONE (15:50)
[2020-01-31 15:55] LABS: Calcium 9.1 mg/dL (8.6-10.3); Potassium 4.5 mEq/L (3.5-5.1); Troponin I 0.21 ng/mL (< 0.04)
[2020-01-31] MEDS ORDERED: *HR* Heparin 5,000 UNIT/ML VIAL IVP PRN ×2 (16:04)
[2020-01-31] MEDS ORDERED: *HR* Heparin 5,000 UNIT/ML VIAL IVP ONE ×2 (16:04→16:45)
[2020-01-31] MEDS ORDERED: Heparin 25,000UNIT/250ML 1/2NS 25,000 UNIT/250 ML IV.SOLN IVC SCH ×2 (16:15)
[2020-01-31 16:17] LABS: Heparin anti-factor XA UFH > 2.00 IU/mL (0.30-0.70)
[2020-01-31] MEDS: Heparin 25,000UNIT/250ML 1/2NS 25,000 UNIT/250 ML IV.SOLN IVC SCH (17:05)
[2020-01-31] MEDS ORDERED: Naloxone 0.4 MG/ML INJ IVP PRN (17:28)
[2020-01-31] MEDS ORDERED: Insulin Human Regular 10 UNIT in 0.9 % Sodium Chloride 10 ML IV ONE (17:41)
[2020-01-31] MEDS ORDERED: D5% in Water 1,000 ML IVC PRN (18:18)
[2020-01-31] MEDS ORDERED: Dextrose Gel 15 GM/37.5 ML TUBE PO PRN ×2 (18:18)
[2020-01-31] MEDS: Insulin DETEMIR 100 UNIT/ML X5UNITS SQ SCH (20:39)
[2020-01-31] MEDS: Insulin LISPRO 300 UNITS/3 ML VIAL SQ SCH (20:39)
[2020-01-31] MEDS: carvediloL 6.25 MG TABLET PO SCH (20:39)
[2020-02-01] MEDS: *HR* Heparin 5,000 UNIT/ML VIAL IVP PRN ×3 (00:57→23:33)
[2020-02-01] MEDS: *HR* Dextrose 50 % in Water (Vial) 50 ML VIAL IVP PRN ×3 (02:56→08:04)
[2020-02-01] MEDS: carvediloL 6.25 MG TABLET PO SCH ×2 (08:03→20:17)
[2020-02-01] MEDS: Insulin LISPRO 300 UNITS/3 ML VIAL SQ SCH ×4 (08:05→21:43)
[2020-02-01] MEDS: Insulin DETEMIR 100 UNIT/ML X5UNITS SQ SCH (08:07)
[2020-02-01] MEDS ORDERED: Perflutren Lipid Microsphere 1.3 ML in 0.9 % Sodium Chloride 8.7 ML IVP PRN (08:20)
[2020-02-01 08:41] LABS: Basophils % 0.5 %; Eosinophils # 0.1 K/mcL (0.0-0.6); Eosinophils % 0.7 %; Hematocrit 40.4 % (35.3-44.9); Hemoglobin 12.3 g/dL (11.5-15.4); Immature Granulocytes % 0.4 % (0-4); Lymphocytes % 11.5 %; Mean Corpuscular HGB Conc 30.4 g/dL (31.6-35.5); Mean Corpuscular Hemoglobin 27.8 pg (28.0-33.3); Mean Corpuscular Volume 91.4 fL (83.0-100.0); Mean Platelet Volume 11.5 fL (9.4-12.4); Monocytes # 0.6 K/mcL (0.0-1.3); Monocytes % 6.6 %; Neutrophils # 6.7 K/mcL (1.6-8.9); Platelet Count 195 K/mcL (140-400); Red Blood Count 4.42 M/mcL (3.82-4.97); Red Cell Distribution Width 16.9 % (11.5-14.5); Segmented Neutrophils % 80.3 %; White Blood Count 8.4 K/mcL (4.3-11.1)
[2020-02-01 08:58] LABS: Chol/HDL Ratio 2.7 (0-4.9); Potassium 4.5 mEq/L (3.5-5.1)
[2020-02-01 09:54] LABS: Estimated Average Glucose 352 mg/dl
[2020-02-01] MEDS: cloNIDine HCL 0.1 MG TABLET PO SCH ×2 (14:41→20:17)
[2020-02-01] MEDS: Aspirin Enteric Coated 81 MG Tablet PO SCH (14:51)
[2020-02-01] MEDS: Isosorbide MONOnitrate (24 HR) 30 MG TAB.ER.24H PO SCH (14:51)
[2020-02-01] MEDS: lisinopriL 10 MG TABLET PO SCH (14:51)
[2020-02-01] MEDS: Renal Vitamin 1 CAP CAPSULE PO SCH (14:51)
[2020-02-01] MEDS: Heparin 25,000UNIT/250ML 1/2NS 25,000 UNIT/250 ML IV.SOLN IVC SCH (15:29)
[2020-02-02 02:11] LABS: Basophils % 0.5 %; Eosinophils # 0.1 K/mcL (0.0-0.6); Eosinophils % 1.7 %; Hematocrit 35.4 % (35.3-44.9); Immature Granulocytes % 0.6 % (0-4); Lymphocytes % 15.5 %; Mean Corpuscular HGB Conc 29.9 g/dL (31.6-35.5); Mean Corpuscular Volume 93.7 fL (83.0-100.0); Mean Platelet Volume 11.8 fL (9.4-12.4); Monocytes # 0.4 K/mcL (0.0-1.3); Monocytes % 6.7 %; Platelet Count 180 K/mcL (140-400); Red Blood Count 3.78 M/mcL (3.82-4.97); Red Cell Distribution Width 16.6 % (11.5-14.5); White Blood Count 6.6 K/mcL (4.3-11.1)
[2020-02-02 02:18] LABS: Hemoglobin 10.6 g/dL (11.5-15.4)
[2020-02-02 02:30] LABS: Calcium 9.4 mg/dL (8.6-10.3); Potassium 4.9 mEq/L (3.5-5.1)
[2020-02-02] MEDS: cloNIDine HCL 0.1 MG TABLET PO SCH ×2 (07:58→21:32)
[2020-02-02] MEDS: Renal Vitamin 1 CAP CAPSULE PO SCH (07:59)
[2020-02-02] MEDS: Aspirin Enteric Coated 81 MG Tablet PO SCH (07:59)
[2020-02-02] MEDS: lisinopriL 10 MG TABLET PO SCH (07:59)
[2020-02-02] MEDS: carvediloL 6.25 MG TABLET PO SCH ×2 (08:00→21:32)
[2020-02-02] MEDS: Isosorbide MONOnitrate (24 HR) 30 MG TAB.ER.24H PO SCH (08:00)
[2020-02-02] MEDS: Insulin LISPRO 300 UNITS/3 ML VIAL SQ SCH ×4 (08:03→21:31)
[2020-02-02] MEDS: Heparin 25,000UNIT/250ML 1/2NS 25,000 UNIT/250 ML IV.SOLN IVC SCH (10:46)
[2020-02-02] MEDS: *HR* Heparin 5,000 UNIT/ML VIAL IVP PRN (13:41)
[2020-02-02] MEDS ORDERED: Melatonin 3 MG TABLET PO ONE (23:47)
[2020-02-03] MEDS ORDERED: Acetaminophen 325 MG TABLET PO PRN (01:51)
[2020-02-03] MEDS: Heparin 25,000UNIT/250ML 1/2NS 25,000 UNIT/250 ML IV.SOLN IVC SCH ×2 (02:00→22:05)
[2020-02-03 03:01] LABS: INR 1.3; Prothrombin Time 14.8 Seconds (9.4-12.1)
[2020-02-03 03:02] LABS: Basophils # 0.1 K/mcL (0.0-0.2); Basophils % 0.6 %; Eosinophils # 0.1 K/mcL (0.0-0.6); Eosinophils % 0.9 %; Hematocrit 34.7 % (35.3-44.9); Hemoglobin 10.3 g/dL (11.5-15.4); Immature Granulocytes % 0.4 % (0-4); Lymphocytes # 1.2 K/mcL (0.6-4.6); Lymphocytes % 15.3 %; Mean Corpuscular HGB Conc 29.7 g/dL (31.6-35.5); Mean Corpuscular Hemoglobin 27.5 pg (28.0-33.3); Mean Corpuscular Volume 92.8 fL (83.0-100.0); Mean Platelet Volume 11.5 fL (9.4-12.4); Monocytes # 0.7 K/mcL (0.0-1.3); Platelet Count 197 K/mcL (140-400); Red Blood Count 3.74 M/mcL (3.82-4.97); Red Cell Distribution Width 16.7 % (11.5-14.5); Segmented Neutrophils % 74.8 %; White Blood Count 8.1 K/mcL (4.3-11.1)
[2020-02-03 03:21] LABS: Calcium 9.8 mg/dL (8.6-10.3); Potassium 6.1 mEq/L (3.5-5.1)
[2020-02-03] MEDS ORDERED: 0.9 % Sodium Chloride 250 ML IVC PRN (07:37)
[2020-02-03] MEDS ORDERED: *HR* Heparin 10,000 UNIT/10 ML VIAL IV PRN (07:37)
[2020-02-03] MEDS ORDERED: 0.9 % Sodium Chloride 1,000 ML PRIME SCH (07:45)
[2020-02-03] MEDS: Insulin LISPRO 300 UNITS/3 ML VIAL SQ SCH ×4 (08:17→20:55)
[2020-02-03] MEDS: Aspirin Enteric Coated 81 MG Tablet PO SCH (08:28)
[2020-02-03] MEDS: Renal Vitamin 1 CAP CAPSULE PO SCH (08:28)
[2020-02-03] MEDS ORDERED: Ondansetron 4 MG/2 ML VIAL IVP PRN (09:24)
[2020-02-03] MEDS: Isosorbide MONOnitrate (24 HR) 30 MG TAB.ER.24H PO SCH (13:56)
[2020-02-03] MEDS: lisinopriL 10 MG TABLET PO SCH (13:56)
[2020-02-03] MEDS: cloNIDine HCL 0.1 MG TABLET PO SCH ×2 (13:57→20:54)
[2020-02-03] MEDS: carvediloL 6.25 MG TABLET PO SCH ×2 (13:57→20:55)
[2020-02-03] MEDS ORDERED: Insulin DETEMIR 100 UNIT/ML X5UNITS SQ SCH (21:00)
[2020-02-03] MEDS: *HR* Heparin 5,000 UNIT/ML VIAL IVP PRN (22:09)
[2020-02-04] MEDS: *HR* Dextrose 50 % in Water (Vial) 50 ML VIAL IVP PRN ×4 (04:32→08:33)
[2020-02-04] MEDS ORDERED: D5% in Water 1,000 ML IVC SCH (05:00)
[2020-02-04 05:47] LABS: Basophils % 0.4 %; Eosinophils % 0.8 %; Hematocrit 37.8 % (35.3-44.9); Hemoglobin 11.3 g/dL (11.5-15.4); Immature Granulocytes % 0.6 % (0-4); Lymphocytes # 0.8 K/mcL (0.6-4.6); Lymphocytes % 14.6 %; Mean Corpuscular HGB Conc 29.9 g/dL (31.6-35.5); Mean Corpuscular Hemoglobin 28.7 pg (28.0-33.3); Mean Corpuscular Volume 95.9 fL (83.0-100.0); Mean Platelet Volume 10.9 fL (9.4-12.4); Monocytes # 0.4 K/mcL (0.0-1.3); Monocytes % 6.8 %; Neutrophils # 3.9 K/mcL (1.6-8.9); Platelet Count 166 K/mcL (140-400); Red Blood Count 3.94 M/mcL (3.82-4.97); Red Cell Distribution Width 17.3 % (11.5-14.5); Segmented Neutrophils % 76.8 %; White Blood Count 5.1 K/mcL (4.3-11.1)
[2020-02-04 06:04] LABS: Calcium 9.7 mg/dL (8.6-10.3); Potassium 4.1 mEq/L (3.5-5.1)
[2020-02-04] MEDS: Insulin LISPRO 300 UNITS/3 ML VIAL SQ SCH ×4 (08:20→20:26)
[2020-02-04] MEDS: carvediloL 6.25 MG TABLET PO SCH ×2 (09:02→20:19)
[2020-02-04] MEDS: Isosorbide MONOnitrate (24 HR) 30 MG TAB.ER.24H PO SCH (09:02)
[2020-02-04] MEDS: Aspirin Enteric Coated 81 MG Tablet PO SCH (09:02)
[2020-02-04] MEDS: lisinopriL 10 MG TABLET PO SCH (09:02)
[2020-02-04] MEDS: cloNIDine HCL 0.1 MG TABLET PO SCH ×2 (09:02→20:18)
[2020-02-04] MEDS: Renal Vitamin 1 CAP CAPSULE PO SCH (09:02)
[2020-02-04 09:50] LABS: VBG HCO3 30 mEq/L (21-27); VBG PCO2 56 mmHg (41-51); VBG PH 7.34 pH Units (7.32-7.42); VBG PO2 102 mmHg (25-50)
[2020-02-04] MEDS ORDERED: 0.9 % Sodium Chloride 1,000 ML ONE (10:37)
[2020-02-04 14:16] LABS: Troponin I 0.25 ng/mL (< 0.04)
[2020-02-04] MEDS ORDERED: D10% in Water 500 ML IVC SCH (14:30)
[2020-02-04 16:37] LABS: Thyroid Stimulating Hormone 1.762 mcIU/mL (0.340-5.600)
[2020-02-04] MEDS: Heparin 25,000UNIT/250ML 1/2NS 25,000 UNIT/250 ML IV.SOLN IVC SCH (20:28)
[2020-02-05 00:59] LABS: Basophils % 0.5 %; Eosinophils # 0.1 K/mcL (0.0-0.6); Eosinophils % 1.4 %; Hematocrit 33.1 % (35.3-44.9); Immature Granulocytes % 0.4 % (0-4); Lymphocytes # 1.3 K/mcL (0.6-4.6); Mean Corpuscular HGB Conc 30.2 g/dL (31.6-35.5); Mean Corpuscular Hemoglobin 28.7 pg (28.0-33.3); Mean Corpuscular Volume 94.8 fL (83.0-100.0); Mean Platelet Volume 11.1 fL (9.4-12.4); Monocytes % 12.4 %; Neutrophils # 5.5 K/mcL (1.6-8.9); Platelet Count 165 K/mcL (140-400); Red Blood Count 3.49 M/mcL (3.82-4.97); Red Cell Distribution Width 17.1 % (11.5-14.5); Segmented Neutrophils % 69.3 %
[2020-02-05 01:21] LABS: Calcium 9.3 mg/dL (8.6-10.3); Potassium 4.2 mEq/L (3.5-5.1)
[2020-02-05] MEDS ORDERED: *HR* Heparin 10,000 UNIT/10 ML VIAL IV PRN (07:46)
[2020-02-05] MEDS ORDERED: 0.9 % Sodium Chloride 250 ML IVC PRN (07:46)
[2020-02-05] MEDS: Insulin LISPRO 300 UNITS/3 ML VIAL SQ SCH ×4 (07:52→20:41)
[2020-02-05] MEDS: cloNIDine HCL 0.1 MG TABLET PO SCH ×2 (07:58→20:40)
[2020-02-05] MEDS: D10% in Water 500 ML IVC SCH (09:28)
[2020-02-05] MEDS ORDERED: 0.9 % Sodium Chloride 2,000 ML ONE (12:26)
[2020-02-05] MEDS ORDERED: *HR* Heparin 10,000 UNIT/10 ML VIAL ONE (12:26)
[2020-02-05] MEDS ORDERED: *HR* Midazolam HCl 2 MG/2 ML VIAL ONE (12:26)
[2020-02-05] MEDS ORDERED: *HR* FentaNYL (PF) 100 MCG/2 ML VIAL ONE (12:26)
[2020-02-05] MEDS ORDERED: Heparin 1,000 UNITS/500 mL 500 ML ONE (12:26)
[2020-02-05] MEDS ORDERED: ISOVUE-370 200 ML INFUS..BTL ONE (12:27)
[2020-02-05] MEDS ORDERED: Nitroglycerin 1,000 MCG/10 ML VIAL IV ONE (12:27)
[2020-02-05] MEDS: carvediloL 6.25 MG TABLET PO SCH ×2 (13:22→20:40)
[2020-02-05] MEDS: Renal Vitamin 1 CAP CAPSULE PO SCH (13:22)
[2020-02-05] MEDS: Isosorbide MONOnitrate (24 HR) 30 MG TAB.ER.24H PO SCH (13:22)
[2020-02-05] MEDS: Aspirin Enteric Coated 81 MG Tablet PO SCH (13:22)
[2020-02-05] MEDS: lisinopriL 5 MG TABLET PO SCH (13:22)
[2020-02-06] MEDS: Heparin 25,000UNIT/250ML 1/2NS 25,000 UNIT/250 ML IV.SOLN IVC SCH ×2 (01:53→21:19)
[2020-02-06] MEDS: *HR* Heparin 5,000 UNIT/ML VIAL IVP PRN ×2 (01:58→18:17)
[2020-02-06 06:17] LABS: Basophils # 0.1 K/mcL (0.0-0.2); Basophils % 0.7 %; Eosinophils # 0.2 K/mcL (0.0-0.6); Eosinophils % 1.9 %; Hematocrit 36.3 % (35.3-44.9); Hemoglobin 11.1 g/dL (11.5-15.4); Immature Granulocytes % 1.2 % (0-4); Lymphocytes # 1.6 K/mcL (0.6-4.6); Lymphocytes % 19.1 %; Mean Corpuscular HGB Conc 30.6 g/dL (31.6-35.5); Mean Corpuscular Hemoglobin 27.8 pg (28.0-33.3); Mean Platelet Volume 11.6 fL (9.4-12.4); Monocytes # 0.9 K/mcL (0.0-1.3); Monocytes % 10.1 %; Neutrophils # 5.7 K/mcL (1.6-8.9); Platelet Count 160 K/mcL (140-400); Red Blood Count 3.99 M/mcL (3.82-4.97); Red Cell Distribution Width 17.6 % (11.5-14.5); White Blood Count 8.6 K/mcL (4.3-11.1)
[2020-02-06 06:31] LABS: Calcium 9.1 mg/dL (8.6-10.3); Potassium 5.8 mEq/L (3.5-5.1)
[2020-02-06] MEDS: cloNIDine HCL 0.1 MG TABLET PO SCH ×2 (07:11→20:47)
[2020-02-06] MEDS: carvediloL 6.25 MG TABLET PO SCH ×2 (07:11→20:47)
[2020-02-06] MEDS ORDERED: 0.9 % Sodium Chloride 250 ML IVC PRN (08:29)
[2020-02-06] MEDS ORDERED: *HR* Heparin 10,000 UNIT/10 ML VIAL IV PRN (08:29)
[2020-02-06] MEDS: Insulin LISPRO 300 UNITS/3 ML VIAL SQ SCH ×4 (08:31→22:41)
[2020-02-06] MEDS: Aspirin Enteric Coated 81 MG Tablet PO SCH (16:00)
[2020-02-06] MEDS: Renal Vitamin 1 CAP CAPSULE PO SCH (16:00)
[2020-02-06] MEDS: Isosorbide MONOnitrate (24 HR) 30 MG TAB.ER.24H PO SCH (16:04)
[2020-02-06] MEDS: lisinopriL 5 MG TABLET PO SCH (16:04)
[2020-02-06 17:25] LABS: Heparin anti-factor XA UFH 0.15 IU/mL (0.30-0.70)
[2020-02-06 17:59] LABS: Activated Partial Thrombo Time 29.4 Seconds (26.0-36.0)
[2020-02-06] MEDS: D10% in Water 500 ML IVC SCH (21:18)
[2020-02-07] MEDS: Heparin 25,000UNIT/250ML 1/2NS 25,000 UNIT/250 ML IV.SOLN IVC SCH (00:24)
[2020-02-07 01:37] LABS: Basophils % 0.3 %; Eosinophils # 0.1 K/mcL (0.0-0.6); Eosinophils % 1.1 %; Hematocrit 36.7 % (35.3-44.9); Hemoglobin 10.9 g/dL (11.5-15.4); Immature Granulocytes % 0.5 % (0-4); Lymphocytes % 14.6 %; Mean Corpuscular HGB Conc 29.7 g/dL (31.6-35.5); Mean Corpuscular Hemoglobin 28.4 pg (28.0-33.3); Mean Corpuscular Volume 95.6 fL (83.0-100.0); Mean Platelet Volume 11.1 fL (9.4-12.4); Monocytes # 0.6 K/mcL (0.0-1.3); Monocytes % 9.1 %; Neutrophils # 4.8 K/mcL (1.6-8.9); Platelet Count 167 K/mcL (140-400); Red Blood Count 3.84 M/mcL (3.82-4.97); Red Cell Distribution Width 17.6 % (11.5-14.5); Segmented Neutrophils % 74.4 %; White Blood Count 6.5 K/mcL (4.3-11.1)
[2020-02-07 02:05] LABS: Calcium 8.8 mg/dL (8.6-10.3); Potassium 4.2 mEq/L (3.5-5.1)
[2020-02-07] MEDS ORDERED: 0.9 % Sodium Chloride 250 ML IVC PRN (07:44)
[2020-02-07] MEDS: D10% in Water 500 ML IVC SCH ×2 (08:00→11:33)
[2020-02-07] MEDS: Insulin LISPRO 300 UNITS/3 ML VIAL SQ SCH ×2 (08:07→11:39)
[2020-02-07] MEDS: Aspirin Enteric Coated 81 MG Tablet PO SCH (08:07)
[2020-02-07] MEDS: Renal Vitamin 1 CAP CAPSULE PO SCH (08:07)
[2020-02-07 12:57] VITALS: BP 126/73
[2020-02-07] MEDS: cloNIDine HCL 0.1 MG TABLET PO SCH (14:42)
[2020-02-07] MEDS: carvediloL 6.25 MG TABLET PO SCH (14:42)
[2020-02-07] MEDS: lisinopriL 5 MG TABLET PO SCH (14:46)
[2020-02-07] MEDS: Isosorbide MONOnitrate (24 HR) 30 MG TAB.ER.24H PO SCH (14:46)
[2020-02-07] MEDS ORDERED: Apixaban 5 MG TABLET PO ONE (16:30)
== END 2020-02-07 16:34 | disposition home or self-care (01) | DRG 280 ==
LOC: 2ANU 14:46 → EMEROOARM 14:46 → 2ANU 17:55 → SUATTDRO 02-01 16:27
PROVIDERS: ADMIT Internal Medicine; ATTEND Internal Medicine

== ENCOUNTER 2020-02-12 20:02 | Inpatient (IN) ==
[2020-02-12] MEDS ORDERED: 0.9 % Sodium Chloride 1,000 ML IVC ONE (20:23)
[2020-02-12 20:42] LABS: Basophils % 0.5 %; Eosinophils % 0.2 %; Hematocrit 31.7 % (35.3-44.9); Hemoglobin 9.4 g/dL (11.5-15.4); Immature Granulocytes % 0.5 % (0-4); Lymphocytes # 0.9 K/mcL (0.6-4.6); Lymphocytes % 10.1 %; Mean Corpuscular HGB Conc 29.7 g/dL (31.6-35.5); Mean Corpuscular Hemoglobin 27.4 pg (28.0-33.3); Mean Corpuscular Volume 92.4 fL (83.0-100.0); Monocytes # 0.8 K/mcL (0.0-1.3); Neutrophils # 6.7 K/mcL (1.6-8.9); Nucleated Red Blood Cells 0.2 /100 WBC (0); Platelet Count 179 K/mcL (140-400); Red Blood Count 3.43 M/mcL (3.82-4.97); Red Cell Distribution Width 17.1 % (11.5-14.5); Segmented Neutrophils % 79.7 %; White Blood Count 8.4 K/mcL (4.3-11.1)
[2020-02-12 21:03] LABS: Calcium 8.4 mg/dL (8.6-10.3); Potassium 4.9 mEq/L (3.5-5.1)
[2020-02-12 21:05] LABS: Troponin I 1.11 ng/mL (< 0.04)
[2020-02-12] MEDS ORDERED: Insulin LISPRO 300 UNITS/3 ML VIAL SQ STA (22:38)
[2020-02-13] MEDS ORDERED: Naloxone 0.4 MG/ML INJ IVP PRN (01:52)
[2020-02-13] MEDS ORDERED: Dextrose Gel 15 GM/37.5 ML TUBE PO PRN ×2 (03:44)
[2020-02-13] MEDS ORDERED: D5% in Water 1,000 ML IVC PRN (03:44)
[2020-02-13 03:59] LABS: Hematocrit 31.2 % (35.3-44.9); Hemoglobin 9.5 g/dL (11.5-15.4); Mean Corpuscular HGB Conc 30.4 g/dL (31.6-35.5); Mean Corpuscular Hemoglobin 28.2 pg (28.0-33.3); Mean Corpuscular Volume 92.6 fL (83.0-100.0); Mean Platelet Volume 10.6 fL (9.4-12.4); Platelet Count 202 K/mcL (140-400); Red Blood Count 3.37 M/mcL (3.82-4.97); Red Cell Distribution Width 17.1 % (11.5-14.5)
[2020-02-13 04:14] LABS: Albumin/Globulin Ratio 0.9 (1.1-2.2); Bilirubin,Total 0.6 mg/dL (0.3-1.0); Calcium 8.7 mg/dL (8.6-10.3); Globulin 3.3 g/dL (2.4-3.5); Magnesium 1.7 mg/dL (1.6-2.6); Phosphorous 6.6 mg/dL (2.7-4.5); Potassium 4.4 mEq/L (3.5-5.1); Total Protein 6.3 g/dL (6.4-8.9)
[2020-02-13 04:25] LABS: Troponin I 1.79 ng/mL (< 0.04)
[2020-02-13] MEDS ORDERED: *HR* Heparin 5,000 UNIT/ML VIAL IVP ONE ×2 (04:28→04:34)
[2020-02-13] MEDS ORDERED: *HR* Heparin 5,000 UNIT/ML VIAL IVP PRN ×3 (04:28→04:34)
[2020-02-13] MEDS ORDERED: Heparin 25,000UNIT/250ML 1/2NS 25,000 UNIT/250 ML IV.SOLN IVC SCH (04:30)
[2020-02-13] MEDS: Insulin LISPRO 300 UNITS/3 ML VIAL SQ SCH ×6 (04:47→16:13)
[2020-02-13] MEDS: Heparin 25,000UNIT/250ML 1/2NS 25,000 UNIT/250 ML IV.SOLN IVC SCH (04:49)
[2020-02-13] MEDS: Acetaminophen 325 MG TABLET PO PRN ×2 (05:44→22:06)
[2020-02-13] MEDS ORDERED: 0.9 % Sodium Chloride 1,000 ML IVC ONE (06:44)
[2020-02-13 07:40] LABS: INR 1.6; Prothrombin Time 18.1 Seconds (9.4-12.1)
[2020-02-13] MEDS: Aspirin Enteric Coated 81 MG Tablet PO SCH (07:45)
[2020-02-13] MEDS ORDERED: carvediloL 6.25 MG TABLET PO SCH (08:00)
[2020-02-13] MEDS ORDERED: cloNIDine HCL 0.1 MG TABLET PO SCH (09:00)
[2020-02-13] MEDS ORDERED: Isosorbide MONOnitrate (24 HR) 30 MG TAB.ER.24H PO SCH (09:00)
[2020-02-13] MEDS: Renal Vitamin 1 CAP CAPSULE PO SCH (09:02)
[2020-02-13] MEDS ORDERED: 0.9 % Sodium Chloride 250 ML IVC ONE (15:54)
[2020-02-13] MEDS ORDERED: 0.9 % Sodium Chloride 250 ML IVC PRN (17:24)
[2020-02-14] MEDS ORDERED: 0.9 % Sodium Chloride 1,000 ML PRIME SCH (00:01)
[2020-02-14] MEDS: Acetaminophen 325 MG TABLET PO PRN ×2 (03:47→16:31)
[2020-02-14 04:59] LABS: Basophils % 0.2 %; Eosinophils % 0.2 %; Hematocrit 32.3 % (35.3-44.9); Hemoglobin 9.8 g/dL (11.5-15.4); Immature Granulocytes % 0.5 % (0-4); Lymphocytes # 1.2 K/mcL (0.6-4.6); Lymphocytes % 14.1 %; Mean Corpuscular HGB Conc 30.3 g/dL (31.6-35.5); Mean Corpuscular Hemoglobin 28.6 pg (28.0-33.3); Mean Corpuscular Volume 94.2 fL (83.0-100.0); Mean Platelet Volume 11.3 fL (9.4-12.4); Monocytes # 0.7 K/mcL (0.0-1.3); Neutrophils # 6.5 K/mcL (1.6-8.9); Platelet Count 208 K/mcL (140-400); Red Blood Count 3.43 M/mcL (3.82-4.97); Red Cell Distribution Width 17.1 % (11.5-14.5); White Blood Count 8.5 K/mcL (4.3-11.1)
[2020-02-14 05:18] LABS: Potassium 5.5 mEq/L (3.5-5.1)
[2020-02-14 05:22] LABS: Troponin I 2.29 ng/mL (< 0.04)
[2020-02-14 05:40] LABS: Folate 14.1 ng/mL (3.0-16.0)
[2020-02-14 05:44] LABS: % Iron Saturation 32 % (15-50); Ferritin > 1500 ng/mL (10-120); Iron 81 mcg/dL (50-170); Magnesium 1.9 mg/dL (1.6-2.6); Phosphorous 8.4 mg/dL (2.7-4.5); Transferrin 179 mg/dL (203-362)
[2020-02-14] MEDS: Insulin LISPRO 300 UNITS/3 ML VIAL SQ SCH ×6 (07:37→16:32)
[2020-02-14] MEDS ORDERED: Nitroglycerin 0.4 MG TAB.SUBL SL PRN (07:47)
[2020-02-14] MEDS: *HR* Heparin 5,000 UNIT/ML VIAL IVP PRN (09:37)
[2020-02-14] MEDS: Ondansetron 4 MG/2 ML VIAL IVP PRN (10:34)
[2020-02-14] MEDS: Heparin 25,000UNIT/250ML 1/2NS 25,000 UNIT/250 ML IV.SOLN IVC SCH (12:04)
[2020-02-14] MEDS: Isosorbide MONOnitrate (24 HR) 30 MG TAB.ER.24H PO SCH (13:12)
[2020-02-14] MEDS: Renal Vitamin 1 CAP CAPSULE PO SCH (13:12)
[2020-02-14] MEDS: Aspirin Enteric Coated 81 MG Tablet PO SCH (13:12)
[2020-02-14] MEDS: *HR* Dextrose 50 % in Water (Vial) 50 ML VIAL IVP PRN (20:42)
[2020-02-14] MEDS ORDERED: Insulin DETEMIR 100 UNIT/ML X5UNITS SQ SCH (21:00)
[2020-02-15] MEDS: *HR* Dextrose 50 % in Water (Vial) 50 ML VIAL IVP PRN (00:05)
[2020-02-15] MEDS: *HR* Heparin 5,000 UNIT/ML VIAL IVP PRN (01:22)
[2020-02-15 01:38] LABS: Magnesium 1.9 mg/dL (1.6-2.6); Phosphorous 6.8 mg/dL (2.7-4.5)
[2020-02-15 01:39] LABS: Calcium 8.9 mg/dL (8.6-10.3); Potassium 4.5 mEq/L (3.5-5.1)
[2020-02-15 07:44] LABS: Estimated Average Glucose 309 mg/dl; Hemoglobin A1C 12.4 %
[2020-02-15] MEDS: Apixaban 5 MG TABLET PO SCH ×2 (08:52→19:30)
[2020-02-15] MEDS: Aspirin Enteric Coated 81 MG Tablet PO SCH (08:52)
[2020-02-15] MEDS: Renal Vitamin 1 CAP CAPSULE PO SCH (08:52)
[2020-02-15] MEDS: Insulin LISPRO 300 UNITS/3 ML VIAL SQ SCH ×3 (08:52→16:08)
[2020-02-15] MEDS: Isosorbide MONOnitrate (24 HR) 30 MG TAB.ER.24H PO SCH (08:53)
[2020-02-15] MEDS ORDERED: Albumin 25% 25gram/100mL 25 GM/100 ML IV.SOLN IVPB PRN (09:43)
[2020-02-15] MEDS ORDERED: 0.9 % Sodium Chloride 250 ML IVC PRN (09:43)
[2020-02-16] MEDS: Melatonin 3 MG TABLET PO PRN (01:36)
[2020-02-16] MEDS: Renal Vitamin 1 CAP CAPSULE PO SCH (07:21)
[2020-02-16] MEDS: Apixaban 5 MG TABLET PO SCH ×2 (07:21→20:13)
[2020-02-16] MEDS: Insulin LISPRO 300 UNITS/3 ML VIAL SQ SCH ×4 (07:21→16:24)
[2020-02-16] MEDS: Aspirin Enteric Coated 81 MG Tablet PO SCH (07:21)
[2020-02-16] MEDS: Isosorbide MONOnitrate (24 HR) 30 MG TAB.ER.24H PO SCH (07:22)
[2020-02-16 07:47] LABS: Basophils % 0.2 %; Eosinophils % 0.1 %; Hematocrit 30.7 % (35.3-44.9); Hemoglobin 9.2 g/dL (11.5-15.4); Immature Granulocytes % 0.7 % (0-4); Lymphocytes # 0.9 K/mcL (0.6-4.6); Lymphocytes % 8.2 %; Mean Corpuscular Volume 93.3 fL (83.0-100.0); Mean Platelet Volume 10.9 fL (9.4-12.4); Monocytes # 0.7 K/mcL (0.0-1.3); Monocytes % 6.8 %; Nucleated Red Blood Cells 0.5 /100 WBC (0); Platelet Count 195 K/mcL (140-400); Red Blood Count 3.29 M/mcL (3.82-4.97); Red Cell Distribution Width 17.7 % (11.5-14.5); White Blood Count 10.7 K/mcL (4.3-11.1)
[2020-02-16 07:57] LABS: Calcium 9.3 mg/dL (8.6-10.3); Potassium 4.8 mEq/L (3.5-5.1)
[2020-02-16] MEDS: Acetaminophen 325 MG TABLET PO PRN ×2 (15:09→22:23)
[2020-02-16] MEDS ORDERED: carvediloL 6.25 MG TABLET PO SCH (17:00)
[2020-02-16] MEDS: Insulin DETEMIR 100 UNIT/ML X5UNITS SQ SCH (20:15)
[2020-02-17] MEDS ORDERED: 0.9 % Sodium Chloride 250 ML IVC PRN (07:06)
[2020-02-17] MEDS ORDERED: Albumin 25% 25gram/100mL 25 GM/100 ML IV.SOLN IVPB PRN (07:06)
[2020-02-17] MEDS: Insulin LISPRO 300 UNITS/3 ML VIAL SQ SCH ×6 (07:11→16:48)
[2020-02-17] MEDS ORDERED: 0.9 % Sodium Chloride 1,000 ML PRIME SCH (07:15)
[2020-02-17] MEDS: Isosorbide MONOnitrate (24 HR) 30 MG TAB.ER.24H PO SCH (07:39)
[2020-02-17] MEDS: Aspirin Enteric Coated 81 MG Tablet PO SCH (07:39)
[2020-02-17] MEDS: Renal Vitamin 1 CAP CAPSULE PO SCH (07:39)
[2020-02-17] MEDS: Apixaban 5 MG TABLET PO SCH ×2 (07:39→21:56)
[2020-02-17 08:48] LABS: Basophils % 0.2 %; Eosinophils % 0.5 %; Hematocrit 34.3 % (35.3-44.9); Hemoglobin 10.4 g/dL (11.5-15.4); Immature Granulocytes % 0.6 % (0-4); Lymphocytes # 0.8 K/mcL (0.6-4.6); Lymphocytes % 8.5 %; Mean Corpuscular HGB Conc 30.3 g/dL (31.6-35.5); Mean Corpuscular Hemoglobin 28.3 pg (28.0-33.3); Mean Corpuscular Volume 93.5 fL (83.0-100.0); Monocytes # 0.6 K/mcL (0.0-1.3); Monocytes % 6.4 %; Neutrophils # 7.4 K/mcL (1.6-8.9); Nucleated Red Blood Cells 0.6 /100 WBC (0); Platelet Count 155 K/mcL (140-400); Red Blood Count 3.67 M/mcL (3.82-4.97); Red Cell Distribution Width 18.4 % (11.5-14.5); Segmented Neutrophils % 83.8 %; White Blood Count 8.8 K/mcL (4.3-11.1)
[2020-02-17] MEDS: Heparin 25,000UNIT/250ML 1/2NS 25,000 UNIT/250 ML IV.SOLN IVC SCH (08:59)
[2020-02-17 09:05] LABS: Calcium 9.2 mg/dL (8.6-10.3); Phosphorous 7.6 mg/dL (2.7-4.5); Potassium 5.5 mEq/L (3.5-5.1)
[2020-02-17] MEDS: Acetaminophen 325 MG TABLET PO PRN (21:54)
[2020-02-17] MEDS: Ondansetron 4 MG/2 ML VIAL IVP PRN (21:55)
[2020-02-17] MEDS: Insulin DETEMIR 100 UNIT/ML X5UNITS SQ SCH (21:55)
[2020-02-18 06:20] LABS: Hematocrit 31.7 % (35.3-44.9); Hemoglobin 9.6 g/dL (11.5-15.4); Mean Corpuscular HGB Conc 30.3 g/dL (31.6-35.5); Mean Corpuscular Hemoglobin 28.1 pg (28.0-33.3); Mean Corpuscular Volume 92.7 fL (83.0-100.0); Platelet Count 133 K/mcL (140-400); Red Blood Count 3.42 M/mcL (3.82-4.97); Red Cell Distribution Width 18.7 % (11.5-14.5); White Blood Count 8.6 K/mcL (4.3-11.1)
[2020-02-18 06:35] LABS: Calcium 9.1 mg/dL (8.6-10.3); Magnesium 2.1 mg/dL (1.6-2.6); Potassium 4.6 mEq/L (3.5-5.1)
[2020-02-18] MEDS ORDERED: 0.9 % Sodium Chloride 250 ML IVC PRN (06:53)
[2020-02-18] MEDS: Insulin LISPRO 300 UNITS/3 ML VIAL SQ SCH ×6 (07:18→16:18)
[2020-02-18] MEDS: Renal Vitamin 1 CAP CAPSULE PO SCH (07:37)
[2020-02-18] MEDS: Aspirin Enteric Coated 81 MG Tablet PO SCH (07:37)
[2020-02-18] MEDS: Isosorbide MONOnitrate (24 HR) 30 MG TAB.ER.24H PO SCH (07:37)
[2020-02-18] MEDS: Apixaban 5 MG TABLET PO SCH ×2 (07:37→20:12)
[2020-02-18] MEDS: Acetaminophen 325 MG TABLET PO PRN ×2 (07:37→18:35)
[2020-02-18] MEDS ORDERED: Albumin 25% 25gram/100mL 25 GM/100 ML IV.SOLN ONE (08:48)
[2020-02-18] MEDS: Melatonin 3 MG TABLET PO PRN (20:12)
[2020-02-18] MEDS: Insulin DETEMIR 100 UNIT/ML X5UNITS SQ SCH (22:19)
[2020-02-18] MEDS ORDERED: 0.9 % Sodium Chloride 500 ML IVC ONE (23:54)
[2020-02-19] MEDS ORDERED: Albumin 25% 25gram/100mL 25 GM/100 ML IV.SOLN IVPB PRN ×2 (00:28→09:04)
[2020-02-19] MEDS ORDERED: Albumin 25% 25gram/100mL 25 GM/100 ML IV.SOLN ONE ×2 (00:29→08:58)
[2020-02-19] MEDS ORDERED: Albumin 25% 25gram/100mL 25 GM/100 ML IV.SOLN IVPB ONE (00:30)
[2020-02-19 01:34] LABS: Red Cell Distribution Width 18.9 % (11.5-14.5)
[2020-02-19 01:36] LABS: Hemoglobin 9.4 g/dL (11.5-15.4); Immature Platelets 6.8 % (1.1-6.1); Mean Corpuscular HGB Conc 30.3 g/dL (31.6-35.5); Mean Corpuscular Hemoglobin 28.9 pg (28.0-33.3); Mean Corpuscular Volume 95.4 fL (83.0-100.0); Mean Platelet Volume 11.8 fL (9.4-12.4); Red Blood Count 3.25 M/mcL (3.82-4.97); White Blood Count 8.2 K/mcL (4.3-11.1)
[2020-02-19 01:59] LABS: Calcium 9.2 mg/dL (8.6-10.3); Magnesium 2.1 mg/dL (1.6-2.6); Phosphorous 7.7 mg/dL (2.7-4.5); Potassium 4.9 mEq/L (3.5-5.1)
[2020-02-19] MEDS ORDERED: 0.9 % Sodium Chloride 250 ML IVC PRN (07:05)
[2020-02-19] MEDS: Insulin LISPRO 300 UNITS/3 ML VIAL SQ SCH ×4 (07:45→11:55)
[2020-02-19] MEDS ORDERED: carvediloL 6.25 MG TABLET PO SCH (08:00)
[2020-02-19 10:53] VITALS: BP 91/62
[2020-02-19] MEDS: Renal Vitamin 1 CAP CAPSULE PO SCH (11:53)
[2020-02-19] MEDS: Aspirin Enteric Coated 81 MG Tablet PO SCH (11:54)
[2020-02-19] MEDS: Isosorbide MONOnitrate (24 HR) 30 MG TAB.ER.24H PO SCH (11:54)
[2020-02-19] MEDS: Apixaban 5 MG TABLET PO SCH (11:54)
== END 2020-02-19 16:03 | disposition home health service (06) | DRG 280 ==
LOC: 2ANU 20:02 → EMEROOARM 20:02 → SUATTDRO 23:36 → 2ANU 02-13 00:48
PROVIDERS: ADMIT Internal Medicine; ATTEND Internal Medicine